=== PATIENT | male | born 1940 | race Caucasian/White ===

== ENCOUNTER 2016-07-21 13:36 | Inpatient (IN) | payer MEDICARE, OTHER ==
[2016-07-21] MEDS ORDERED: Acetaminophen 325 MG Tab PO PRN (13:54)
[2016-07-21] MEDS ORDERED: Bisacodyl 5 MG Tab PO PRN (13:54)
[2016-07-21] MEDS ORDERED: Promethazine 12.5 MG in Sodium Chloride 0.9% 50 ML IV PRN (13:54)
[2016-07-21] MEDS ORDERED: Ondansetron 4 MG/2 ML SDV IV PRN (13:54)
[2016-07-21] MEDS ORDERED: HYDROmorphone 0.5 MG/0.5 ML Syringe IVPUSH PRN (13:54)
[2016-07-21] MEDS ORDERED: Albuterol/Ipratropium 3.0-0.5 MG/3 ML Neb Soln NEB PRN (13:54)
[2016-07-21] MEDS ORDERED: Polyethylene Glycol 3350 Powder 17 GM Packet PO PRN (13:54)
--- NOTE | 2016-07-21 13:54 | PCM.HP ---
H&P History of Present Illness - General Date of Service: 07/21/16 Source of Information: Patient, Old records, Provider, RN notes reviewed History Limitations: Reports: No limitations - History of Present Illness Initial Comments - Free Text/Narative: This is a 75 yo elderly white male with past medical hx/o Asthma, HTN, PVD and HLD who initially presented to his PCP with complaints of abdominal discomfort associated with anorexia, increased gas, belching and nausea and was found to be hyponatremic as low as 125. He denies any fever or chills. No generalized aches or pains. No sinus congestion, sore throat, headaches or ear pain. He has chronic cough due to Asthma. His initial lab form the clinic shows slightly elevated WBC 11.7 The rest of his CBC labs were unremarkable. His chemistry shows BS 82, BUN 14, Cr 0.72, Na 125, Cl 90, K 4.5, Co2 26, Ca 8.7, CRP 11.4 and Amylase 54. Patient was referred to me for medical management of hyponatremia. He is full code neck pain Pain Score (Numeric/FACES): 5 - Related Data Allergies/Adverse Reactions: Allergies Allergy/AdvReac Type Severity Reaction Status Date / Time No Known Allergies Allergy Verified 07/21/16 15:48 Home Medications: Home Meds Alendronate [Fosamax] 1 tab PO WEEKLY 06/06/16 [History] Cholecalciferol (Vitamin D3) [Vitamin D3] 2,000 unit PO DAILY 06/06/16 [History] Ezetimibe [Zetia] 1 tab PO DAILY 06/06/16 [History] Fluticasone/Salmeterol [Advair 500-50 Diskus] 2 puff IH DAILY 06/06/16 [History] Glucosamine/Chondro He A [Cosamin DS] 2 tab PO DAILY 06/06/16 [History] Multivitamin [Multivitamins] 1 each PO DAILY 06/06/16 [History] Rosuvastatin [Crestor] 5 mg PO DAILY 06/06/16 [History] Theophylline [Carlito-24] 200 mg PO DAILY 06/06/16 [History] Acetylcysteine [Nac] 600 mg PO BID 07/21/16 [History] Albuterol Sulfate [Ventolin Hfa] 18 gm IH DAILY 07/21/16 [History] Glutamine [l-Glutamine] 1 dose PO TID 07/21/16 [History] Magnesium 250 mg PO DAILY 07/21/16 [History] Ultra Meal Advance Protein Supplement 2 dose PO BID 07/21/16 [History] Past Medical History Cardiovascular History: Reports: High cholesterol, Hypertension, Pulmonary hypertension, PVD, SOB on exertion Other Cardiovascular History: ASCVD Respiratory History: Reports: COPD, Pneumonia, recurrent Other Respiratory History: pt does not wear his CPAP as prescibed Genitourinary History: Reports: BPH Musculoskeletal History: Reports: Arthritis, Back pain, chronic, Osteoarthritis Psychiatric History: Reports: Addiction, Other (see below) Other Psychiatric History: nighty ETOH drinks - Infectious Disease History Infectious Disease History: Reports: Chicken pox, Measles - Past Surgical History Cardiovascular Surgical History: Reports: Vascular surgery Other Cardiovascular Surgeries/Procedures: states that the pt has been having to sleep in the chair recently Musculoskeletal Surgical History: Reports: Other (see below) Other Musculoskeletal Surgeries/Procedures:: pt 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 Denies: fever, chills, fatigue HEENT: Reports: no symptoms Pulmonary: Reports: shortness of breath (baseline), cough (baseline) Cardiovascular: Denies: chest pain, palpitations, dyspnea on exertion Gastrointestinal: Reports: Abdominal pain, Anorexia, Decreased appetite, Flatus , Nausea. Denies: Bloody stool, Constipation, Diarrhea, Melena, Vomiting Genitourinary: Reports: no symptoms Musculoskeletal: Reports: no symptoms Skin: Denies: bruising, pruritis, rash, erythema Psychiatric: Denies: depression, anxiety Neurological: Denies: confusion, seizure, syncope, difficulty walking, weakness Hematologic/Lymphatic: Reports: easy bleeding, easy bruising Immunologic: Reports: no symptoms Exam - Exam Exam: See Below - Vital Signs Weight: 65 kg - Exam Quality Assessment: No: supplemental oxygen General: alert, oriented, cooperative, mild distress HEENT: Conjunctiva clear, EACs clear, EOMI, Hearing intact, Mucosa moist & pink , Nares patent, Normal nasal septum, Posterior pharynx clear, Pupils equal, Pupils reactive Neck: supple, trachea midline, 2+ carotid pulse wo bruit, full range of motion Lungs: Normal respiratory effort, Decreased breath sounds Cardiovascular: regular rate, regular rhythm Abdomen: normal bowel sounds, soft, organomegaly. No: peritoneal signs, distention, guarding, rigidity, rebound, tenderness (Male) Exam: Deferred Rectal (Males) Exam: Deferred Back Exam: normal inspection, decreased range of motion Extremities: normal inspection, normal pulses. No: clubbing, calf tenderness, edema Peripheral Pulses: 2+: dorsalis pedis (L), dorsalis pedis (R) Skin: warm, dry, intact, ecchymosis Neuro Extensive - Mental Status: oriented x3, normal cognition, memory intact Neuro Extensive - Motor, Sensory, Reflexes: CN II-XII intact, normal gait Psychiatric: alert, normal affect, normal mood *Q Meaningful Use (ADM) - VTE *Q VTE Criteria *Q: - Stroke *Q Stroke Criteria *Q: - AMI *Q AMI Criteria *Q: Problem List Initiated/Reviewed/Updated: Yes Assessment/Plan Comment:: Assessment/Plan: Moderate Hyponatremia - Na 125, new to him - Patient takes herbal supplements, which could be affecting his level - No issues with hydration - Not on SSRIs or Diuretics - Possible dehydration with reduced appetite and anorexia - IV 1L NS and salt tablets Nausea w/o Vomiting - PRN Medications - He is taking supplements specially OTC acetylcysteine which can cause nausea - IV Hydration S/p Abdominal Discomfort - Associated with increased gas and belching - Possible drug side effects - He is taking narcotics for pain along with other OTC medications Chronic: Chronic Asthma HTN PVD HLD Plan: Direct Admit to Med-surg Routine AM Labs Pulse Ox for O2 monitoring Resume Home Meds Follow-up CXR PT/OT consult SW/CM for d/c planning Additional orders as above Code status: full
--- NOTE | 2016-07-21 14:33 | CR ---
Chest: 2 views of the chest were obtained. Comparison: Previous chest x-ray 07/10/16. Increased density on both sides of the chest compatible with healing rib fractures. Lungs are clear with no acute infiltrates. Previous lumbar spine surgery is noted. Scoliosis is present within the spine. Heart size is normal. Mild tortuosity of the thoracic aorta is seen. Impression: 1. Findings as noted above. Nothing acute is appreciated on 2 view chest x-ray. Diagnostic code #2
[2016-07-21] MEDS: Sodium Chloride 0.9% 1,000 ML IV SCH (16:00)
[2016-07-21] MEDS ORDERED: Potassium Chloride/Sodium Chloride Tab PO STA (16:56)
[2016-07-21] MEDS: Acetaminophen/HYDROcodone 325-5 MG Tab PO PRN ×2 (17:09→21:08)
[2016-07-21] MEDS ORDERED: Calcium Carbonate 500 MG Tab.Chew PO PRN (18:21)
[2016-07-21] MEDS ORDERED: Simethicone 80 MG Tab.Chew PO PRN (18:22)
[2016-07-21] MEDS ORDERED: ALENDRONATE PO SCH (19:00)
[2016-07-21] MEDS ORDERED: Temazepam 15 MG Cap PO PRN (21:00)
[2016-07-21] MEDS ORDERED: Potassium Chloride/Sodium Chloride Tab PO SCH (21:00)
[2016-07-21] MEDS: Potassium Chloride/Sodium Chloride Tab PO SCH (21:08)
[2016-07-22] MEDS: Sodium Chloride 0.9% 1,000 ML IV SCH (00:52)
[2016-07-22] MEDS: Pantoprazole 40 MG Tab.CR PO SCH ×2 (06:57→16:11)
--- NOTE | 2016-07-22 08:14 | PCM.PN ---
- General Info Date of Service: 07/22/16 Admission Dx/Problem (Free Text): Hyponatremia Subjective Update: Follow Up Functional Status: Reports: pain controlled, tolerating diet, ambulating, urinating. Denies: new symptoms - Review of Systems General: Denies: fever, weakness, fatigue, malaise, chills HEENT: Denies: contact lenses Pulmonary: Reports: shortness of breath, cough, other (baseline) Cardiovascular: Denies: chest pain, palpitations, dyspnea on exertion, edema Gastrointestinal: Denies: Abdominal pain, Constipation, Decreased appetite, Diarrhea, Nausea, Vomiting Genitourinary: Reports: no symptoms Musculoskeletal: Reports: no symptoms Skin: Reports: bruising. Denies: rash Neurological: Denies: confusion, dizziness, seizure, difficulty walking, weakness, gait disturbance Psychiatric: Denies: depression, anxiety, hallucinations Systems Review Comment:: No overnight or acute issues. He is doing relatively well. His sodium is now at 134. No seizures reported. Patient has been ambulating down the becker w/o respiratory complaints. - Patient Data Vitals - most recent: Last Vital Signs Temp 36.6 C 07/22/16 08:00 Pulse 80 07/22/16 08:00 Resp 16 07/22/16 08:00 BP 100/66 07/22/16 08:00 Pulse Ox 94 L 07/22/16 08:00 Weight - most recent: 63.684 kg I&O - last 24 hours: Intake & Output 07/21/16 07/22/16 07/22/16 22:59 06:59 14:59 Intake Total 2108 Output Total 1000 Balance 1108 Lab Results last 24 hrs: Laboratory Results - last 24 hr 07/21/16 07/22/16 07/22/16 Range/Units 17:15 05:15 05:15 WBC 6.52 (4.23-9.07) K/mm3 RBC 4.71 (4.63-6.08) M/mm3 Hgb 14.4 (13.7-17.5) gm/L Hct 41.4 (40.1-51.0) % MCV 87.9 (79.0-92.2) fl MCH 30.6 (25.7-32.2) pg MCHC 34.8 (32.2-35.5) g/dl RDW Std Deviation 40.9 (35.1-43.9) fL Plt Count 234 (163-337) K/mm3 MPV 9.7 (9.4-12.3) fl Neut % (Auto) 52.0 (34.0-67.9) % Lymph % (Auto) 27.3 (21.8-53.1) % [place] % (Auto) 11.3 (5.3-12.2) % Eos % (Auto) 7.2 H (0.8-7.0) Baso % (Auto) 0.5 (0.1-1.2) % Neut # 3.39 (1.78-5.38) K/mm3 Lymph # 1.78 (1.32-3.57) K/mm3 [place] # 0.74 (0.30-0.82) K/mm3 Eos # 0.47 (0.04-0.54) K/mm3 Baso # 0.03 (0.01-0.08) K/mm3 Sodium 134 L (136-145) mEq/L Potassium 4.2 (3.5-5.1) mEq/L Chloride 100 (98-107) mEq/L Carbon Dioxide 26 (21-32) mEq/L Anion Gap 12.2 (5-15) BUN 9 (7-18) mg/dL Creatinine 0.8 (0.7-1.3) mg/dL Est Cr Clr Drug Dosing 71.87 mL/min Estimated GFR (MDRD) > 60 (>60) mL/min BUN/Creatinine Ratio 11.3 L (14-18) Glucose 81 (74-106) mg/dL Calcium 8.3 L (8.5-10.1) mg/dL Magnesium 2.1 (1.8-2.4) mg/dl Urine Color Yellow (Yellow) Urine Appearance Clear (Clear) Urine pH 6.0 (5.0-8.0) Ur Specific [place] 1.025 (1.005-1.030) Urine Protein Negative (Negative) Urine Glucose (UA) Negative (Negative) Urine Ketones 2+ H (Negative) Urine Occult Blood Negative (Negative) Urine Nitrite Negative (Negative) Urine Bilirubin Negative (Negative) Urine Urobilinogen 0.2 (0.2-1.0) Ur Leukocyte Esterase Negative (Negative) Urine RBC Not seen (0-5) /hpf Urine WBC Not seen (0-5) /hpf Ur Epithelial Cells 0-5 (0-5) /hpf Urine Bacteria Few (FEW) /hpf Urine Mucus Moderate H (FEW) /hpf Med Orders - Current: Current Medications Acetaminophen (Tylenol) 650 mg PO Q4H PRN PRN Reason: Pain (Mild 1-3)/fever Acetaminophen/Hydrocodone Bitart (Henderson 325-5 Mg) 2 tab PO Q4H PRN PRN Reason: Pain (moderate 4-6) Last Admin: 07/21/16 21:08 Dose: 2 tab Albuterol (Proventil Hfa) 0 gm INH DAILY [facility] Albuterol/Ipratropium (Duoneb 3.0-0.5 Mg/3 Ml) 3 ml NEB Q4H PRN PRN Reason: Shortness Of Breath/wheezing Bisacodyl (Dulcolax) 5 mg PO DAILY PRN PRN Reason: Constipation Calcium Carbonate/Glycine (Tums) 1,000 mg PO Q2HR PRN PRN Reason: Indigestion Cholecalciferol (Vitamin D3) 2,000 units PO DAILY [facility] Ezetimibe (Zetia) 10 mg PO DAILY [facility] Enoxaparin Sodium (Lovenox) 40 mg SUBCUT DAILY [facility] Hydromorphone HCl (Dilaudid) 0.25 mg IVPUSH Q2H PRN PRN Reason: Pain (severe 7-10) Promethazine HCl 12.5 mg/ (Sodium Chloride) 50.5 mls @ 100 mls/hr IV Q6H PRN PRN Reason: Nausea/Vomiting Sodium Chloride (Normal Saline) 1,000 mls @ 125 mls/hr IV ASDIRECTED [facility] Last Admin: 07/22/16 00:52 Dose: 125 mls/hr Magnesium Oxide (Magnesium Oxide) 400 mg PO DAILY [facility] Magnesium Sulfate (Pharmacy To Dose - Magnesium Replacement) 0 dose .XX ASDIRECTED PRN PRN Reason: RX TO MONITOR MAG LEVEL Multivitamins (Thera) 1 each PO DAILY [facility] Non-Formulary Medication (Alendronate) 1 tab PO WEEKLY [facility] Non-Formulary Medication (Ultra Meal Advance Protein Supplement) 2 dose PO BID [facility] Ondansetron HCl (Zofran) 4 mg IV Q6H PRN PRN Reason: Nausea/Vomiting Oral Electrolytes (Thermotabs) 2 each PO TID [facility] Last Admin: 07/21/16 21:08 Dose: 2 each Pantoprazole Sodium (Protonix) 40 mg PO BIDAC ARNIE Last Admin: 07/22/16 06:57 Dose: 40 mg Polyethylene Glycol (Miralax) 17 gm PO DAILY PRN PRN Reason: Constipation Potassium Chloride (Pharmacy To Dose - Potassium Replacement) 0 dose .XX ASDIRECTED PRN PRN Reason: RX TO MONITOR K LEVELS Rosuvastatin Calcium (Crestor) 5 mg PO DAILY [facility] Fluticasone/Salmeterol (Advair Diskus 500-50) 0 puff INH DAILY [facility] Senna/Docusate Sodium (Senna Plus) 1 tab PO BID PRN PRN Reason: Constipation Simethicone (Simethicone) 80 mg PO Q6H PRN PRN Reason: Gas Temazepam (Restoril) 15 mg PO BEDTIME PRN PRN Reason: Sleep Theophylline (Theophylline Anhydrous) 200 mg PO DAILY ARNIE Discontinued Medications Oral Electrolytes (Thermotabs) 2 each PO TID ARNIE Oral Electrolytes (Thermotabs) 2 each PO STAT STA Stop: 07/21/16 16:57 Last Admin: 07/21/16 17:12 Dose: 2 each - Exam General: alert, oriented, cooperative, no acute distress HEENT: Pupils equal, Pupils reactive, EOMI, Mucous membr. moist/pink Neck: supple, trachea midline, no JVD, no thyromegaly Lungs: Normal respiratory effort, Decreased breath sounds Cardiovascular: regular rate, regular rhythm Abdomen: bowel sounds present, soft, no tenderness, no distension (Male) Exam: Deferred Back Exam: normal inspection, decreased range of motion Extremities: no edema, normal pulses, no tenderness/swelling, no clubbing, no cyanosis, no calf tenderness Peripheral Pulses: 2+: dorsalis pedis (L), dorsalis pedis (R) Skin: dry, intact, ecchymosis Neurological: no new focal deficit Psy/Mental Status: alert, normal affect, normal mood - Problem List Review Problem List Initiated/Reviewed/Updated: Yes - My Orders Last 24 Hours: My Active Orders 07/21/16 13:54 Patient Status [ADT] Routine Height and Weight [RC] 04 Up With Assistance [RC] ASDIRECTED Up ad [place] [RC] ASDIRECTED VTE/DVT Education [RC] PER UNIT ROUTINE Vital Signs [RC] Q4HR Acetaminophen [Tylenol] 650 mg PO Q4H PRN Acetaminophen/HYDROcodone [Henderson 325-5 MG] 2 tab PO Q4H PRN Albuterol/Ipratropium [DuoNeb 3.0-0.5 MG/3 ML] 3 ml NEB Q4H PRN Bisacodyl [Dulcolax] 5 mg PO DAILY PRN Docusate Sodium/Sennosides [Senna Plus] 1 tab PO BID PRN HYDROmorphone [Dilaudid] 0.25 mg IVPUSH Q2H PRN Ondansetron [Zofran] 4 mg IV Q6H PRN Polyethylene Glycol 3350 [MiraLAX] 17 gm PO DAILY PRN Promethazine [Phenergan] 12.5 mg Sodium Chloride 0.9% [Normal Saline] 50 ml IV Q6H Resuscitation Status Routine 07/21/16 13:55 Intake and Output [RC] 04,16 Pulse Oximetry [RC] CONTINUOUS 07/21/16 13:56 RT Aerosol Therapy [RC] ASDIRECTED 07/21/16 13:57 Consult to Case Management [CONS] Routine Consult to [place] Supervisor [CONS] Routine OT Evaluation and Treatment [CONS] Routine PT Evaluation and Treatment [CONS] Routine Respiratory Care Assess and Treatment [CONS] Routine 07/21/16 13:58 Oxygen Therapy [RC] PRN VTE/DVT Education [RC] DAILY 07/21/16 14:00 Magnesium Rep Pharmacy to Dose [Pharmacy to Dose - Magnesium Replacement] 0 dose .XX ASDIRECTED PRN Potassium Rep Pharmacy to Dose [Pharmacy to Dose - Potassium Replacement] 0 dose .XX ASDIRECTED PRN Sodium Chloride 0.9% [Normal Saline] 1,000 ml IV ASDIRECTED 07/21/16 17:15 CULTURE URINE [RM] Stat 07/21/16 18:21 Calcium Carbonate [Tums] 1,000 mg PO Q2HR PRN 07/21/16 18:22 Simethicone 80 mg PO Q6H PRN 07/21/16 19:00 Alendronate 1 tab PO WEEKLY 07/21/16 21:00 Potassium Chloride/NaCl [Thermotabs] 2 each PO TID Temazepam [Restoril] 15 mg PO BEDTIME PRN Ultra Meal Advance Protein Supplement 2 dose PO BID 07/21/16 Lunch Regular Diet [DIET] 07/22/16 05:15 CBC WITH AUTO DIFF [HEME] AM 07/22/16 06:00 Pantoprazole [Protonix] 40 mg PO BIDAC 07/22/16 09:00 Albuterol [Proventil HFA] 0 gm INH DAILY Cholecalciferol (Vitamin D3) [Vitamin D3] 2,000 units PO DAILY Enoxaparin [Lovenox] 40 mg SUBCUT DAILY Ezetimibe [Zetia] 10 mg PO DAILY Fluticasone/Salmeterol [Advair Diskus 500-50] 0 puff INH DAILY Magnesium Oxide 400 mg PO DAILY Multivitamins,Therapeutic [Thera] 1 each PO DAILY Rosuvastatin [Crestor] 5 mg PO DAILY Theophylline [Theophylline Anhydrous] 200 mg PO DAILY 07/23/16 05:11 BASIC METABOLIC PANEL,BMP [CHEM] AM CBC WITH AUTO DIFF [HEME] AM MAGNESIUM [CHEM] AM 07/24/16 05:11 BASIC METABOLIC PANEL,BMP [CHEM] AM CBC WITH AUTO DIFF [HEME] AM MAGNESIUM [CHEM] AM 07/25/16 05:11 BASIC METABOLIC PANEL,BMP [CHEM] AM CBC WITH AUTO DIFF [HEME] AM MAGNESIUM [CHEM] AM 07/26/16 05:11 BASIC METABOLIC PANEL,BMP [CHEM] AM CBC WITH AUTO DIFF [HEME] AM MAGNESIUM [CHEM] AM 07/27/16 05:11 BASIC METABOLIC PANEL,BMP [CHEM] AM CBC WITH AUTO DIFF [HEME] AM MAGNESIUM [CHEM] AM - Plan Plan:: Assessment/Plan: Moderate Hyponatremia - Na 125, new to him ---> 134 near low end of normal - Patient takes herbal supplements, which could be affecting his level - No issues with hydration - Not on SSRIs or Diuretics - Possible dehydration with reduced appetite and anorexia - Will d/c IVF and continue salt tablets Resolved: S/p Nausea w/o Vomiting - PRN Medications - He is taking supplements specially OTC acetylcysteine which can cause nausea - IV Hydration S/p Abdominal Discomfort - Associated with increased gas and belching - Possible drug side effects - He is taking narcotics for pain along with other OTC medications Chronic: Chronic Asthma HTN PVD HLD Plan: He is clinically stable Continue current treatment Routine AM Labs Possible d/c in am Additional orders as above Code status: full
[2016-07-22] MEDS ORDERED: Theophylline 200 MG Tab.ER PO SCH (09:00)
[2016-07-22] MEDS ORDERED: Fluticasone/Salmeterol 500-50 MCG Inhalation Powder 14/Diskus INH SCH (09:00)
[2016-07-22] MEDS: Albuterol 6.7 GM Inhaler INH SCH (09:24)
[2016-07-22] MEDS: Ezetimibe 10 MG Tab PO SCH (09:59)
[2016-07-22] MEDS: Potassium Chloride/Sodium Chloride Tab PO SCH ×3 (09:59→20:48)
[2016-07-22] MEDS: Cholecalciferol (Vitamin D3) 1,000 Unit Tab PO SCH (09:59)
[2016-07-22] MEDS: Magnesium Oxide 400 MG Tab PO SCH (09:59)
[2016-07-22] MEDS: Multivitamins,Therapeutic Tab PO SCH (09:59)
[2016-07-22] MEDS: Rosuvastatin 10 MG Tab PO SCH (09:59)
[2016-07-22] MEDS: Enoxaparin 40 MG/0.4 ML Syringe SUBCUT SCH (10:00)
[2016-07-22] MEDS: Theophylline 200 MG Tab.ER PO SCH ×2 (10:06→21:00)
[2016-07-22] MEDS: Fluticasone/Salmeterol 500-50 MCG Inhalation Powder 14/Diskus INH SCH (21:00)
[2016-07-22] MEDS: PROTEIN SUPPLEMENT PO SCH (21:00)
[2016-07-23] MEDS: Pantoprazole 40 MG Tab.CR PO SCH (05:36)
--- NOTE | 2016-07-23 07:25 | PCM.DCSUM1 ---
Discharge Summary - Hospital Course Brief History: This is a 75 yo elderly white male with past medical hx/o Asthma , HTN, PVD and HLD who initially presented to his PCP with complaints of abdominal discomfort associated with anorexia, increased gas, belching and nausea and was found to be hyponatremic as low as 125. - Discharge Data Discharge Date: 07/23/16 Discharge Disposition: Home, Self-Care 01 Condition: Good - Discharge Diagnosis/Problem(s) (1) Hyponatremia SNOMED Code(s): 13754847 ICD Code: E87.1 - HYPO-OSMOLALITY AND HYPONATREMIA Status: Acute Current Visit: No - Patient Summary/Data Operative Procedure(s) Performed: None Complications: None Consults: Consultations 07/21/16 13:57 Consult to Case Management [CONS] Routine Consult to Customer Business Manager [CONS] Routine OT Evaluation and Treatment [CONS] Routine PT Evaluation and Treatment [CONS] Routine Respiratory Care Assess and Treatment [CONS] Routine Hospital Course: Patient was primarily admitted for treatment of symptomatic hyponatremia. He carries no previous hx/o in the past. He was not on SSRIs or any psychotropic medications as well as diuretics. However he just started taking OTC supplements and herbs which we felt maybe the cause of his hyponatremia ( euvolemic hyponatremic). Pharmacy reviewed all his home meds but could not find any possible cause. His sodium was 125 on admission and is now 134 after infusion of normal saline and intake of po salt tablet. His hospital course was very uncomplicated. The rest of his chronic medical illness remained stable during this admission. Patient is now ready to be released. He will go home with salt tablets to take for 3 days. He was advised to call see his PCP if his symptoms persist or get worse. Patient was further advised to discussed any herbs or supplements with his PCP prior to taking it. Patient expressed understanding and in agreement with the plans as discussed above. - Patient Instructions Diet: Usual Diet as Tolerated Activity: As Tolerated Driving: May Drive Today Showering/Bathing: May Shower Notify Provider of: Fever, Increased Pain, Nausea and/or Vomiting Other/Special Instructions: - Please take medications as directed. - Discussed all OTC supplements/herbs with your doctor before you it. - Call your doctor if your symptom persists or gets worse - Discharge Plan Prescriptions/Med Rec: Non-Formulary Medication [NF Drug] 0 each ORAL.INH TID #9 each Home Medications: Home Meds Alendronate [Fosamax] 1 tab PO WEEKLY 06/06/16 [History] Cholecalciferol (Vitamin D3) [Vitamin D3] 2,000 unit PO DAILY 06/06/16 [History] Ezetimibe [Zetia] 1 tab PO DAILY 06/06/16 [History] Fluticasone/Salmeterol [Advair 500-50 Diskus] 2 puff IH BEDTIME 06/06/16 [ History] Glucosamine/Chondro He A [Cosamin DS] 2 tab PO DAILY 06/06/16 [History] Multivitamin [Multivitamins] 1 each PO DAILY 06/06/16 [History] Rosuvastatin [Crestor] 5 mg PO DAILY 06/06/16 [History] Theophylline [Carlito-24] 100 mg PO BID 06/06/16 [History] Acetylcysteine [Nac] 600 mg PO BID 07/21/16 [History] Albuterol Sulfate [Ventolin Hfa] 18 gm IH DAILY 07/21/16 [History] Glutamine [l-Glutamine] 1 dose PO TID 07/21/16 [History] Magnesium 250 mg PO DAILY 07/21/16 [History] Ultra Meal Advance Protein Supplement 2 dose PO BID 07/21/16 [History] Non-Formulary Medication [NF Drug] 0 each ORAL.INH TID #9 each 07/23/16 [Rx] - Discharge Summary/Plan Comment DC Time >30 min.: No Discharge Summary/Plan Comment: Discharge to Home - General Info Date of Service: 07/23/16 Admission Dx/Problem (Free Text: Hyponatremia Subjective Update: Follow Up Functional Status: Reports: pain controlled, tolerating diet, ambulating, urinating. Denies: new symptoms - Review of Systems General: Denies: fever, weakness, fatigue, malaise, chills HEENT: Reports: no symptoms Pulmonary: Denies: shortness of breath Cardiovascular: Denies: chest pain Gastrointestinal: Denies: Abdominal pain, Constipation, Decreased appetite, Diarrhea, Nausea, Vomiting Genitourinary: Reports: no symptoms Musculoskeletal: Reports: no symptoms Skin: Reports: bruising Neurological: Denies: confusion, dizziness, seizure, difficulty walking, weakness, gait disturbance Psychiatric: Denies: depression, anxiety, hallucinations Systems Review Comment: No overnight or acute issues. He still remains relatively stable. His sodium level stayed at 134. He has no new complaints. - Patient Data Vitals - Most Recent: Last Vital Signs Temp 36.9 C 07/23/16 04:00 Pulse 62 07/23/16 04:00 Resp 20 07/23/16 04:00 BP 139/72 07/23/16 04:00 Pulse Ox 95 07/23/16 04:00 Weight - Most Recent: 62.868 kg I&O - Last 24 hours: Intake & Output 07/22/16 07/23/16 07/23/16 22:59 06:59 14:59 Intake Total 1690 200 Output Total 1375 550 Balance 315 -350 Lab Results - Last 24 hrs: Laboratory Results - last 24 hr 07/22/16 07/23/16 07/23/16 Range/Units 05:15 05:20 05:20 WBC 6.52 8.93 (4.23-9.07) K/mm3 RBC 4.71 4.81 (4.63-6.08) M/mm3 Hgb 14.4 14.8 (13.7-17.5) gm/L Hct 41.4 42.9 (40.1-51.0) % MCV 87.9 89.2 (79.0-92.2) fl MCH 30.6 30.8 (25.7-32.2) pg MCHC 34.8 34.5 (32.2-35.5) g/dl RDW Std Deviation 40.9 42.5 (35.1-43.9) fL Plt Count 234 292 (163-337) K/mm3 MPV 9.7 9.6 (9.4-12.3) fl Neut % (Auto) 52.0 56.1 (34.0-67.9) % Lymph % (Auto) 27.3 27.8 (21.8-53.1) % Meade % (Auto) 11.3 9.6 (5.3-12.2) % Eos % (Auto) 7.2 H 5.3 (0.8-7.0) Baso % (Auto) 0.5 0.4 (0.1-1.2) % Neut # 3.39 5.01 (1.78-5.38) K/mm3 Lymph # 1.78 2.48 (1.32-3.57) K/mm3 Meade # 0.74 0.86 H (0.30-0.82) K/mm3 Eos # 0.47 0.47 (0.04-0.54) K/mm3 Baso # 0.03 0.04 (0.01-0.08) K/mm3 Manual Slide Review Abnormal smear Sodium 134 L (136-145) mEq/L Potassium 4.2 (3.5-5.1) mEq/L Chloride 99 (98-107) mEq/L Carbon Dioxide 25 (21-32) mEq/L Anion Gap 14.2 (5-15) BUN 8 (7-18) mg/dL Creatinine 0.7 (0.7-1.3) mg/dL Est Cr Clr Drug Dosing 81.08 mL/min Estimated GFR (MDRD) > 60 (>60) mL/min BUN/Creatinine Ratio 11.4 L (14-18) Glucose 86 (74-106) mg/dL Calcium 8.5 (8.5-10.1) mg/dL Magnesium 2.0 (1.8-2.4) mg/dl ANASTACIO Results - Last 24 hrs: Microbiology 07/21/16 17:15 Urine Culture - Preliminary Urine, Clean Catch NO GROWTH AFTER 1 DAY Med Orders - Current: Current Medications Acetaminophen (Tylenol) 650 mg PO Q4H PRN PRN Reason: Pain (Mild 1-3)/fever Acetaminophen/Hydrocodone Bitart (Orient 325-5 Mg) 2 tab PO Q4H PRN PRN Reason: Pain (moderate 4-6) Last Admin: 07/21/16 21:08 Dose: 2 tab Albuterol (Proventil Hfa) 0 gm INH DAILY [facility] Last Admin: 07/22/16 09:24 Dose: 1 puff Albuterol/Ipratropium (Duoneb 3.0-0.5 Mg/3 Ml) 3 ml NEB Q4H PRN PRN Reason: Shortness Of Breath/wheezing Bisacodyl (Dulcolax) 5 mg PO DAILY PRN PRN Reason: Constipation Calcium Carbonate/Glycine (Tums) 1,000 mg PO Q2HR PRN PRN Reason: Indigestion Cholecalciferol (Vitamin D3) 2,000 units PO DAILY [facility] Last Admin: 07/22/16 09:59 Dose: 2,000 units Ezetimibe (Zetia) 10 mg PO DAILY [facility] Last Admin: 07/22/16 09:59 Dose: 10 mg Enoxaparin Sodium (Lovenox) 40 mg SUBCUT DAILY [facility] Last Admin: 07/22/16 10:00 Dose: 40 mg Hydromorphone HCl (Dilaudid) 0.25 mg IVPUSH Q2H PRN PRN Reason: Pain (severe 7-10) Promethazine HCl 12.5 mg/ (Sodium Chloride) 50.5 mls @ 100 mls/hr IV Q6H PRN PRN Reason: Nausea/Vomiting Magnesium Oxide (Magnesium Oxide) 400 mg PO DAILY [facility] Last Admin: 07/22/16 09:59 Dose: 400 mg Magnesium Sulfate (Pharmacy To Dose - Magnesium Replacement) 0 dose .XX ASDIRECTED PRN PRN Reason: RX TO MONITOR MAG LEVEL Multivitamins (Thera) 1 each PO DAILY [facility] Last Admin: 07/22/16 09:59 Dose: 1 each Ondansetron HCl (Zofran) 4 mg IV Q6H PRN PRN Reason: Nausea/Vomiting Oral Electrolytes (Thermotabs) 2 each PO TID [facility] Last Admin: 07/22/16 20:48 Dose: 2 each Pantoprazole Sodium (Protonix) 40 mg PO BIDAC [facility] Last Admin: 07/23/16 05:36 Dose: 40 mg Ultra Meal Advance (Protein Supplement) 0 each PO BID [facility] Last Admin: 07/22/16 21:00 Dose: Not Given Polyethylene Glycol (Miralax) 17 gm PO DAILY PRN PRN Reason: Constipation Potassium Chloride (Pharmacy To Dose - Potassium Replacement) 0 dose .XX ASDIRECTED PRN PRN Reason: RX TO MONITOR K LEVELS Rosuvastatin Calcium (Crestor) 5 mg PO DAILY [facility] Last Admin: 07/22/16 09:59 Dose: 5 mg Fluticasone/Salmeterol (Advair Diskus 500-50) 1 puff INH DAILY [facility] Last Admin: 07/22/16 21:00 Dose: 1 puff Senna/Docusate Sodium (Senna Plus) 1 tab PO BID PRN PRN Reason: Constipation Simethicone (Simethicone) 80 mg PO Q6H PRN PRN Reason: Gas Temazepam (Restoril) 15 mg PO BEDTIME PRN PRN Reason: Sleep Theophylline (Theophylline Anhydrous) 100 mg PO BID [facility] Last Admin: 07/22/16 21:00 Dose: Not Given Discontinued Medications Sodium Chloride (Normal Saline) 1,000 mls @ 125 mls/hr IV ASDIRECTED [facility] Last Admin: 07/22/16 00:52 Dose: 125 mls/hr Non-Formulary Medication (Alendronate) 1 tab PO WEEKLY ARNIE Oral Electrolytes (Thermotabs) 2 each PO TID ARNIE Oral Electrolytes (Thermotabs) 2 each PO STAT STA Stop: 07/21/16 16:57 Last Admin: 07/21/16 17:12 Dose: 2 each Fluticasone/Salmeterol (Advair Diskus 500-50) 0 puff INH DAILY [facility] Last Admin: 07/22/16 09:23 Dose: Not Given Theophylline (Theophylline Anhydrous) 200 mg PO DAILY [facility] Last Admin: 07/22/16 11:38 Dose: Not Given - Exam General: Reports: alert, oriented, cooperative HEENT: Reports: Pupils equal, Pupils reactive, EOMI, Mucous membr. moist/pink Neck: Reports: supple, trachea midline, no JVD, no thyromegaly Lungs: Reports: Normal respiratory effort, Decreased breath sounds, Rhonchi ( mild ronchi) Cardiovascular: Reports: regular rate, regular rhythm Abdomen: Reports: bowel sounds present, soft, no tenderness, no distension (Male) Exam: Deferred Rectal (Males) Exam: Deferred Back Exam: Reports: normal inspection, decreased range of motion Extremities: Reports: no edema, normal pulses, no tenderness/swelling, no clubbing, no cyanosis, no calf tenderness Skin: Reports: warm, dry, intact, ecchymosis Neurological: Reports: no new focal deficit Psy/Mental Status: Reports: alert, normal affect, normal mood *Q Meaningful Use (DIS) - VTE *Q VTE Criteria *Q: - Stroke *Q Stroke Criteria *Q: - AMI *Q AMI Criteria *Q:
[2016-07-23 08:16] VITALS: BP 134/72
[2016-07-23] MEDS: Magnesium Oxide 400 MG Tab PO SCH (08:17)
[2016-07-23] MEDS: Multivitamins,Therapeutic Tab PO SCH (08:17)
[2016-07-23] MEDS: Potassium Chloride/Sodium Chloride Tab PO SCH (08:18)
[2016-07-23] MEDS: Cholecalciferol (Vitamin D3) 1,000 Unit Tab PO SCH (08:18)
[2016-07-23] MEDS: Ezetimibe 10 MG Tab PO SCH (08:18)
[2016-07-23] MEDS: Enoxaparin 40 MG/0.4 ML Syringe SUBCUT SCH (08:19)
[2016-07-23] MEDS: Theophylline 200 MG Tab.ER PO SCH (08:19)
[2016-07-23] MEDS: Rosuvastatin 10 MG Tab PO SCH (08:29)
[2016-07-23] MEDS: Albuterol 6.7 GM Inhaler INH SCH (08:47)
[2016-07-23] MEDS: PROTEIN SUPPLEMENT PO SCH (08:57)
[2016-07-23] MEDS ORDERED: Diphtheria,Pertussis(Acell),Tetanus Vaccine 0.5 ML SDV inactive IM ONE (10:56)
[2016-07-23] MEDS ORDERED: Pneumococcal 13-Valent Conjugate Vaccine 0.5 ML Syringe IM ONE (10:56)
[2016-07-23] MEDS: Fluticasone/Salmeterol 500-50 MCG Inhalation Powder 14/Diskus INH SCH (11:09)
== END 2016-07-23 08:52 | disposition home or self-care (01) | DRG 641 ==
LOC: JD.IVTHER 13:36 → JD.ICU 13:44
PROVIDERS: ADMIT Internal Medicine; ATTEND Internal Medicine
DX: E87.1 Hypo-osmolality and hyponatremia (principal); S22.39XA Fracture of one rib, unspecified side, initial encounter for closed fracture; E86.0 Dehydration; R10.9 Unspecified abdominal pain; R11.2 Nausea with vomiting, unspecified; J44.9 Chronic obstructive pulmonary disease, unspecified; J45.909 Unspecified asthma, uncomplicated; W19.XXXA Unspecified fall, initial encounter; I25.10 Atherosclerotic heart disease of native coronary artery without angina pectoris; I10 Essential (primary) hypertension; I73.9 Peripheral vascular disease, unspecified; E78.5 Hyperlipidemia, unspecified; E78.00 Pure hypercholesterolemia, unspecified; N40.0 Benign prostatic hyperplasia without lower urinary tract symptoms; M19.90 Unspecified osteoarthritis, unspecified site; Z87.01 Personal history of pneumonia (recurrent); F10.10 Alcohol abuse, uncomplicated; Z79.899 Other long term (current) drug therapy
CPT/HCPCS: 36415; 71020; 71020-26; 80048; 81001; 83735; 85025; 87086; 94640; 94664; 94760; 94762; 97110-GP; 97161-GP; 97165-GO; 99222; 99238; A9270-GY; J1650; J7040

== ENCOUNTER 2016-11-07 12:03 | Emergency (ER) | payer MEDICARE, OTHER ==
[2016-11-07] MEDS ORDERED: Sodium Chloride 0.9% 10 ML Syringe FLUSH PRN ×3 (12:38→13:40)
--- NOTE | 2016-11-07 12:47 | EDM.PDOC ---
ED HPI GENERAL MEDICAL PROBLEM - General Chief Complaint: Syncope Stated Complaint: BLACKED OUT Time Seen by Provider: 11/07/16 12:30 Source of Information: Reports: Patient, Family ( spouse and son. ) History Limitations: Reports: No Limitations - History of Present Illness INITIAL COMMENTS - FREE TEXT/NARRATIVE: 76-year-old male presents the ED by ambulance. provides the history as the patient has no recollection of what has happened to him. Apparently he was sitting on the couch and she recognized him to be staring off into space. Just when he was looking at it got no response. He continued to stare off into space and not able to answer her verbally. He was verbally unresponsive for between 30 and 40 seconds. Then he speech was very slurred when she asked him his name and he was acting postictal for about next 10-15 minutes. She never noticed any tonic-clonic movements of his extremities. Patient did not lose control of his bowel or bladder or bite his tongue. He's had a headache the last few days but at present he doesn't have a headache. Patient has never had a seizure in the past. He has a history of chronic low sodium level which might be an issue. Onset: Today Onset Date: 11/07/16 Onset Time: 11:15 Duration: Minutes: Location: Reports: Generalized (Unresponsiveness staring off into space with no obvious tonic-clonic movements. Lasted 30 seconds or so. 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 (see below) (None.) Neck Pain Score (Numeric/FACES): 9 - Related Data Allergies Allergy/AdvReac Type Severity Reaction Status Date / Time No Known Allergies Allergy Verified 07/21/16 15:48 Home Meds: Home Meds Alendronate [Fosamax] 70 mg PO IRVIN 06/06/16 [History] Cholecalciferol (Vitamin D3) [Vitamin D3] 2,000 unit PO DAILY 06/06/16 [History] Fluticasone/Salmeterol [Advair 500-50 Diskus] 2 puff IH BEDTIME 06/06/16 [ History] Glucosamine/Chondro Irvin A [Cosamin DS] 2 tab PO DAILY 06/06/16 [History] Multivitamin [Multivitamins] 1 each PO DAILY 06/06/16 [History] Rosuvastatin [Crestor] 5 mg PO DAILY 06/06/16 [History] Theophylline [Carlito-24] 400 mg PO DAILY 06/06/16 [History] Acetylcysteine [Nac] 600 mg PO DAILY 07/21/16 [History] Albuterol Sulfate [Ventolin Hfa] 18 gm IH DAILY 07/21/16 [History] Glutamine [l-Glutamine] 2 tsp PO DAILY 07/21/16 [History] Magnesium 250 mg PO DAILY 07/21/16 [History] Ultra Meal Advance Protein Supplement 2 dose PO BID 07/21/16 [History] Cephalexin 500 mg PO TID 11/07/16 [History] Ibuprofen 600 mg PO QID PRN 11/07/16 [History] Protein Supplement [Procel] 1 pkt PO DAILY 11/07/16 [History] Past Medical History Cardiovascular History: Reports: High Cholesterol, Hypertension, Pulmonary Hypertension, PVD, SOB on Exertion Other Cardiovascular History: ASCVD Respiratory History: Reports: COPD, Pneumonia, Recurrent Other Respiratory History: pt does not wear his CPAP as prescibed Genitourinary History: Reports: BPH Musculoskeletal History: Reports: Arthritis, Back Pain, Chronic, Osteoarthritis Psychiatric History: Reports: Addiction, Other (See Below) Other Psychiatric History: nighty ETOH drinks Dermatologic History: Reports: Other (See Below) Other Dermatologic History: very thin skin secondary to theophylline - Infectious Disease History Infectious Disease History: Reports: Chicken Pox, Measles - Past Surgical History Cardiovascular Surgical History: Reports: Vascular Surgery Musculoskeletal Surgical History: Reports: Other (See Below) Social & Family History - Family History Family Medical History: Noncontributory - Tobacco Use Smoking Status *Q: Never Smoker Years of Tobacco use: 20 Packs/Tins Daily: 0.5 Used Tobacco, but Quit: Yes Month Tobacco Last Used: unknown - Caffeine Use Caffeine Use: Reports: None - Alcohol Use Days Per Week of Alcohol Use: 7 Number of Drinks Per Day: 1 Total Drinks Per Week: 7 - Recreational Drug Use Recreational Drug Use: No - Living Situation & Occupation Living situation: Reports: Occupation: Retired ED ROS GENERAL - Review of Systems Review Of Systems: See Below Constitutional: Reports: Malaise, Weakness, Fatigue, Decreased Appetite, Weight Loss, Other (Eats and drinks quite poorly. Taking salt pills periodically to boost his sodium levels.). Denies: Fever, Chills HEENT: Reports: No Symptoms Respiratory: Reports: Shortness of Breath, Wheezing (Chronically due to severe COPD.), Cough. Denies: Pleuritic Chest Pain ( Intermittently), Sputum ( Nonproductive), Hemoptysis, Other Cardiovascular: Reports: Dyspnea on Exertion, Lightheadedness. Denies: No Symptoms, Chest Pain, Blood Pressure Problem, Claudication, Edema (Chronically) , Orthopnea, Palpitations Endocrine: Reports: Fatigue GI/Abdominal: Reports: No Symptoms : Reports: Frequency Musculoskeletal: Reports: Neck Pain (Has several bad discs apparently in his back and lower back.), Back Pain Skin: Reports: Bruising (Is is very easily. Skin is very fragile) Neurological: Reports: Confusion (Transient confusion after suspect seizure today.), Headache, Seizure (By history today), Difficulty Walking (Chronically due to to severe pain right foot.). Denies: Numbness (The last few days but not at present), Paresthesia, Pre-Existing Deficit, Syncope, Tingling, Tremors, Trouble Speaking Psychiatric: Reports: No Symptoms Hematologic/Lymphatic: Reports: No Symptoms Immunologic: Reports: No Symptoms - Physical Exam Exam: See Below Exam Limited By: No Limitations General Appearance: Alert, WD/WN, No Apparent Distress, Other (He was confused initially but his mentation improved fairly promptly after about 5 minutes in the exam room.) Eye Exam: Bilateral Eye: Normal Inspection, PERRL Throat/Mouth: Normal Inspection, Normal Lips, Normal Teeth, Normal Oropharynx. No: Evidence of Tongue Biting Head Exam: Atraumatic, Normocephalic Neck: Normal Inspection, Limited Range of Motion, Tender Lateral (Bilaterally.) . No: Full Range of Motion, Carotid Bruit, Lymphadenopathy (L), Lymphadenopathy (R) Respiratory/Chest: No Accessory Muscle Use, Respiratory Distress (Mild tachypnea at rest. O2 sats only 89% on room air.), Decreased Breath Sounds ( Page breath sounds in the lower 50% of lung akins.), Rhonchi, Wheezing (That her bronchitis and expiratory wheezes.). No: Lungs Clear, Normal Breath Sounds Cardiovascular: Regular Rate, Rhythm, No Edema, No Gallop, No Murmur, No Rub. No: Normal Peripheral Pulses GI/Abdominal: Normal Bowel Sounds, Soft, Non-Tender, No Organomegaly (Male) Exam: No Hernia Neuro Exam (Abbreviated): Alert, Oriented, CN II-XII Intact, Normal Cognition, No Motor/Sensory Deficits. No: Normal Gait, Normal Reflexes DTR: 0: Achilles (R), Achilles (L), 1+: Bicep (R), Bicep (L), Patella (R), Patella (L) Back Exam: Normal Inspection, Decreased Range of Motion, Vertebral Tenderness ( Lumbar spine.) Extremities: Other (A. 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 There is now concern for osteomyelitis in the midfoot and he is for triple phase bone scan tomorrow.) Skin Exam: Warm, Dry, Intact, Normal Color, No Rash EKG INTERPRETATION EKG Date: 11/07/16 Time: 12:15 Rhythm: NSR Rate (beats/min): 80 (Frequent PACs) [place]: normal P-wave: present QRS: normal ST-T: other (Decreased voltage limb leads) QT: normal Course - Vital Signs Last Recorded V/S: Last Vital Signs Temp 36.9 C 11/07/16 12:05 Pulse 84 11/07/16 12:05 Resp 22 H 11/07/16 12:05 BP 117/74 11/07/16 12:05 Pulse Ox 89 L 11/07/16 12:05 - Orders/Labs/Meds Orders: Active Orders 24 hr Category Date Time Status EKG Documentation Completion [RC] STAT Care 11/07/16 12:38 Active Peripheral IV Care [RC] . DIRECTED Care 11/07/16 12:39 Active Sodium Chloride 0.9% [Normal Saline] 1,000 ml Med 11/07/16 13:00 Active IV ASDIRECTED Sodium Chloride 0.9% [Saline Flush] Med 11/07/16 12:38 Active 10 ml FLUSH ASDIRECTED PRN Sodium Chloride 0.9% [Saline Flush] Med 11/07/16 13:29 Active 10 ml FLUSH ONETIME PRN Sodium Chloride 0.9% [Saline Flush] Med 11/07/16 13:40 Active 10 ml FLUSH ONETIME PRN Peripheral IV Insertion Adult [OM.PC] Stat Oth 11/07/16 12:39 Ordered Medication Orders Sodium Chloride (Normal Saline) 1,000 mls @ 100 mls/hr IV ASDIRECTED ARNIE Last Admin: 11/07/16 12:55 Dose: 100 mls/hr Sodium Chloride (Saline Flush) 10 ml FLUSH ASDIRECTED PRN PRN Reason: Keep Vein Open Last Admin: 11/07/16 12:15 Dose: 10 ml Sodium Chloride (Saline Flush) 10 ml FLUSH ONETIME PRN PRN Reason: IV FLUSH Sodium Chloride (Saline Flush) 10 ml FLUSH ONETIME PRN PRN Reason: IV FLUSH Last Admin: 11/07/16 13:55 Dose: 10 ml Labs: Laboratory Tests 11/07/16 11/07/16 11/07/16 Range/Units 12:25 12:25 12:25 WBC 11.90 H (4.23-9.07) K/mm3 RBC 4.93 (4.63-6.08) M/mm3 Hgb 14.8 (13.7-17.5) gm/L Hct 42.4 (40.1-51.0) % MCV 86.0 (79.0-92.2) fl MCH 30.0 (25.7-32.2) pg MCHC 34.9 (32.2-35.5) g/dl RDW Std Deviation 41.3 (35.1-43.9) fL Plt Count 240 (163-337) K/mm3 MPV 9.4 (9.4-12.3) fl Neutrophils % (Manual) 60 (40-60) % Band Neutrophils % 0 (0-10) % Lymphocytes % (Manual) 22 (20-40) % Atypical Lymphs % 0 % Monocytes % (Manual) 7 (2-10) % Eosinophils % (Manual) 11 H (0.8-7.0) % Basophils % (Manual) 0 L (0.2-1.2) Platelet Estimate Adequate RBC Morph Comment Normal PT 9.8 (8.0-13.0) SECONDS INR 0.90 Sodium 127 L (136-145) mEq/L Potassium 3.9 (3.5-5.1) mEq/L Chloride 93 L (98-107) mEq/L Carbon Dioxide 22 (21-32) mEq/L Anion Gap 15.9 H (5-15) BUN 12 (7-18) mg/dL Creatinine 0.9 (0.7-1.3) mg/dL Est Cr Clr Drug Dosing 64.96 mL/min Estimated GFR (MDRD) > 60 (>60) mL/min BUN/Creatinine Ratio 13.3 L (14-18) Glucose 83 (83-115) mg/dL Serum Osmolality (280-300) mosm/kg Calcium 8.6 (8.5-10.1) mg/dL Magnesium 2.0 (1.8-2.4) mg/dl Total Bilirubin 1.3 H (0.2-1.0) mg/dL AST 30 (15-37) U/L ALT 27 (16-63) U/L Alkaline Phosphatase 94 (46-116) U/L CK-MB (CK-2) 1.8 (0-3.6) ng/ml Troponin I < 0.017 (0.00-0.056) ng/mL C-Reactive Protein 5.0 H* (<1.0) mg/dL Total Protein 6.6 (6.4-8.2) g/dl Albumin 3.1 L (3.4-5.0) g/dl Globulin 3.5 gm/dL Albumin/Globulin Ratio 0.9 L (1-2) 05/23/17 Range/Units 12:25 WBC (4.23-9.07) K/mm3 RBC (4.63-6.08) M/mm3 Hgb (13.7-17.5) gm/L Hct (40.1-51.0) % MCV (79.0-92.2) fl MCH (25.7-32.2) pg MCHC (32.2-35.5) g/dl RDW Std Deviation (35.1-43.9) fL Plt Count (163-337) K/mm3 MPV (9.4-12.3) fl Neutrophils % (Manual) (40-60) % Band Neutrophils % (0-10) % Lymphocytes % (Manual) (20-40) % Atypical Lymphs % % Monocytes % (Manual) (2-10) % Eosinophils % (Manual) (0.8-7.0) % Basophils % (Manual) (0.2-1.2) Platelet Estimate RBC Morph Comment PT (8.0-13.0) SECONDS INR Sodium (136-145) mEq/L Potassium (3.5-5.1) mEq/L Chloride (98-107) mEq/L Carbon Dioxide (21-32) mEq/L Anion Gap (5-15) BUN (7-18) mg/dL Creatinine (0.7-1.3) mg/dL Est Cr Clr Drug Dosing mL/min Estimated GFR (MDRD) (>60) mL/min BUN/Creatinine Ratio (14-18) Glucose (83-115) mg/dL Serum Osmolality 263 L (280-300) mosm/kg Calcium (8.5-10.1) mg/dL Magnesium (1.8-2.4) mg/dl Total Bilirubin (0.2-1.0) mg/dL AST (15-37) U/L ALT (16-63) U/L Alkaline Phosphatase (46-116) U/L CK-MB (CK-2) (0-3.6) ng/ml Troponin I (0.00-0.056) ng/mL C-Reactive Protein (<1.0) mg/dL Total Protein (6.4-8.2) g/dl Albumin (3.4-5.0) g/dl Globulin gm/dL Albumin/Globulin Ratio (1-2) Meds: Medications Generic Name Dose Route Start Last Admin Trade Name Freq PRN Reason Stop Dose Admin Sodium Chloride 1,000 mls @ 100 mls/hr 11/07/16 13:00 11/07/16 12:55 Normal Saline IV 100 mls/hr ASDIRECTED ARNIE Administration Sodium Chloride 10 ml 11/07/16 12:38 11/07/16 12:15 Saline Flush FLUSH 10 ml ASDIRECTED PRN Administration Keep Vein Open Sodium Chloride 10 ml 11/07/16 13:29 Saline Flush FLUSH ONETIME PRN IV FLUSH Sodium Chloride 10 ml 11/07/16 13:40 11/07/16 13:55 Saline Flush FLUSH 10 ml ONETIME PRN Administration IV FLUSH Discontinued Medications Generic Name Dose Route Start Last Admin Trade Name Freq PRN Reason Stop Dose Admin Hydromorphone HCl 0.5 mg 11/07/16 13:22 11/07/16 13:37 Dilaudid IVPUSH 11/07/16 13:23 0.5 mg ONETIME ONE Administration Iopamidol 100 ml 11/07/16 13:29 Isovue-300 (61%) IVPUSH 11/07/16 13:30 ONETIME ONE Iopamidol 80 ml 11/07/16 13:40 11/07/16 13:55 Isovue-300 (61%) IVPUSH 11/07/16 13:41 80 ml ONETIME ONE Administration Ondansetron HCl 4 mg 11/07/16 13:22 11/07/16 13:34 Zofran IVPUSH 11/07/16 13:23 4 mg ONETIME ONE Administration - Radiology Interpretation Free Text/Narrative:: 76-year-old male presents the ED after having an episode at home where he was staring off into space and was nonverbal with his . Did not respond to physical stimulation . This activity lasted roughly 30 seconds and then was noted to be quite dysarthric and postictal for about 10-15 minutes. His cognitive function has returned to normal now and he is showing no signs of a neurological deficit. He has a history of chronic hyponatremia which may or may not be playing a role in this event. No new medications have been introduced. He does not drink alcohol. Plan CT of the head will be done to make sure that he did not have a cerebral bleed. Routine labs to be collected. I will start him on normal saline at 125 mils an hour. He is scheduled to have CT of the chest today at [facility] at 1:00. I believe this was with contrast because of an abnormality patient CT 3 months ago. They're concerned that he may have occult lung cancer that is secreting a hormone causing his hyponatremia. I will wait for serum creatinine come back before pursuing CT of his chest. CT of the brain has been completed and does not reveal any intracranial bleeding. Age- appropriate changes appreciated with small vessel ischemic changes in the basal ganglia bilaterally.CT did reveal increased mucosal thickening of the ethmoid and sphenoid sinuses suggesting chronic sinusitis. - Re-Assessments/Exams Free Text/Narrative Re-Assessment/Exam: 11/07/16 13:23 she is complaining of increased neck pain. We'll give him Dilaudid 0.5 mg IV with Zofran 4 mg IV. 11/07/16 13:24 did receive labs done yesterday at [facility] by Dr. Vasquez.. He is creatinine was 0.85 at that time in the kidneys kidneys are functioning fairly well. His GFR was greater than 60. His serum sodium level was low at 127 with potassium of 4.2. CRP was markedly elevated at 26.9. This is worrisome for an infective process in his right foot. 11/07/16 13:41 laboratory reveals a total white count of 11.90 with 60% neutrophils and no bands. Hemoglobin is 14.8 hematocrit is 42.4. Of note there is 11% eosinophils noted. PT is 9.8 INR 0.90. Sodium is low at 127. Potassium 3.9 chloride 93 bicarbonate 22. Anion gap is 15.9 BUN is 12 creatinine 0.9 bilirubin 1.3 CRP 5.0. Serum osmolality is pending. 11/07/16 14:33 CT of the chest has been carried out with contrast. Cardiac silhouette appears normal. Visualized portions of the aorta appear normal. He has mild atherosclerotic disease. He has an infiltrate in the base of the left lung with a small pleural effusion. Appears to to be a pneumonic consolidation. Basal right lung also has an infiltrate which appears to be mostly vascular and scar tissue. 11/07/16 : Discussed the findings with the patient and family. He does not wish to stay in the hospital. He will therefore be discharged to home to use salt pills 2 tablets --2 tablets 3 times daily for the next 5 days and minimize his water intake and supplement most of juices and/or Gatorade Powerade. Serum sodium level checked in the clinic in one week's time. Departure - Departure Time of Disposition: 15:20 Disposition: Home, Self-Care 01 Condition: fair Clinical Impression: Hyponatremia with decreased serum osmolality Complex partial epileptic seizure Qualifiers: Epilepsy type: partial symptomatic Intractability: not intractable Status epilepticus: without status epilepticus Qualified Code(s): G40.209 - Localization-related (focal) (partial) symptomatic epilepsy and epileptic syndromes with complex partial seizures, not intractable, without status epilepticus - Discharge Information Referrals: Kareem Cowan MD [Primary Care Provider] - Forms: ED Department Discharge Additional Instructions: evaluation in the emergency room today in regards to seizure that occurred in her home this morning. You are unresponsive to verbal and physical stimuli from your for at least 30 seconds or longer. Postictal phase lasted a good 10- 15 minutes with impaired cognition and speech pattern. The cause of this appears to be low sodium in your blood or hyponatremia which has been a long- term problem for you. You were scheduled for CT of your lungs today and it was carried out in the emergency department. It is essentially unchanged from previous CTs showing scar tissue in both bases without any other abnormalities being noted other than findings of chronic obstructive pulmonary disease. Serum sodium today was 127 similar to what it was in the clinic yesterday. Serum osmolality was 263 and it should be 295. Treatment is to start pills 3 times daily to bring your sodium level back up.suggestion this for at least 5 days. Fluid restriction to less than 400 mils of water per day would also help keep your sodium level up. It is important to try and drink as much juices or Gatorade Powerade as possible and not drink pure water as this continues to dilute her sodium level in your blood.you should have repeat labs done in a week 's time to see where your sodium value is. - My Orders Last 24 Hours: My Active Orders 11/07/16 12:38 EKG Documentation Completion [RC] STAT Sodium Chloride 0.9% [Saline Flush] 10 ml FLUSH ASDIRECTED PRN 11/07/16 12:39 Peripheral IV Care [RC] . DIRECTED Peripheral IV Insertion Adult [OM.PC] Stat 11/07/16 13:00 Sodium Chloride 0.9% [Normal Saline] 1,000 ml IV ASDIRECTED 11/07/16 13:29 Sodium Chloride 0.9% [Saline Flush] 10 ml FLUSH ONETIME PRN 11/07/16 13:40 Sodium Chloride 0.9% [Saline Flush] 10 ml FLUSH ONETIME PRN - Assessment/Plan Last 24 Hours: My Active Orders 11/07/16 12:38 EKG Documentation Completion [RC] STAT Sodium Chloride 0.9% [Saline Flush] 10 ml FLUSH ASDIRECTED PRN 11/07/16 12:39 Peripheral IV Care [RC] . DIRECTED Peripheral IV Insertion Adult [OM.PC] Stat 11/07/16 13:00 Sodium Chloride 0.9% [Normal Saline] 1,000 ml IV ASDIRECTED 11/07/16 13:29 Sodium Chloride 0.9% [Saline Flush] 10 ml FLUSH ONETIME PRN 11/07/16 13:40 Sodium Chloride 0.9% [Saline Flush] 10 ml FLUSH ONETIME PRN
[2016-11-07] MEDS ORDERED: Sodium Chloride 0.9% 1,000 ML IV SCH (13:00)
--- NOTE | 2016-11-07 13:21 | CT ---
Head CT Technique: Multiple axial sections through the brain were obtained. Intravenous contrast was not utilized. Comparison: Previous head CT study of 04/03/16. Findings: Ventricles along with basal cisterns and sulci over the convexities are mildly prominent. Minimal diminished density is noted within the periventricular white matter and within the basal ganglia compatible with small vessel ischemic demyelination change. No other abnormal parenchymal densities are seen. No evidence of intracranial hemorrhage. No midline shift or mass effect is seen. Atherosclerotic change is noted within both vertebral vessels and within the carotid siphon. Bone window settings were reviewed which shows moderate to severe mucosal thickening within the ethmoid and sphenoid sinuses. Mucosal thickening has increased in prominence from previous exam. No acute calvarial abnormality is seen. Impression: 1. Increasing mucosal thickening within the ethmoid and sphenoid sinus from prior exam. Findings may represent worsening chronic sinusitis. 2. Mild senescent change as noted above. Nothing acute is appreciated on noncontrast head CT exam. Diagnostic code #3
[2016-11-07] MEDS ORDERED: HYDROmorphone 0.5 MG/0.5 ML Syringe IVPUSH ONE (13:22)
[2016-11-07] MEDS ORDERED: Ondansetron 4 MG/2 ML SDV IVPUSH ONE (13:22)
[2016-11-07] MEDS ORDERED: Iopamidol 612 MG/ML 100 ML Bottle IVPUSH ONE ×2 (13:29→13:40)
--- NOTE | 2016-11-07 14:55 | CT ---
CT chest Technique: Multiple axial sections through the chest were obtained. Intravenous contrast was utilized. Comparison: Previous chest CT of 06/07/12. Findings: Small portion of the visualized upper abdominal structures are within normal limits. No pericardial thickening is seen. Coronary artery calcification is noted. Slightly ectatic ascending aorta is seen. Atherosclerotic calcification noted within the thoracic aorta. No axillary adenopathy is seen. Parenchymal density seen within both lung bases believed to represent scarring which appears fairly stable from previous exam. Lungs otherwise are clear. No nodule or mass is seen. Multiple healed bilateral rib fractures are noted. Mild degenerative change is noted within the spine. Previous lumbar spine surgery is partially seen. Impression: 1. Stable findings as noted above. When compared to prior chest CT, no significant change is appreciated. Diagnostic code #3
[2016-11-07 15:49] VITALS: BP 122/73
== END 2016-11-07 15:30 | disposition home or self-care (01) ==
LOC: JD.ED 12:03
DX: G40.209 Localization-related (focal) (partial) symptomatic epilepsy and epileptic syndromes with complex partial seizures, not intractable, without status epilepticus (principal); E87.1 Hypo-osmolality and hyponatremia; I27.2 Other secondary pulmonary hypertension; E78.00 Pure hypercholesterolemia, unspecified; J44.9 Chronic obstructive pulmonary disease, unspecified; M19.90 Unspecified osteoarthritis, unspecified site; Z87.01 Personal history of pneumonia (recurrent); Z79.899 Other long term (current) drug therapy; R06.02 Shortness of breath
CPT/HCPCS: 36415; 70450; 71260; 80053; 82553; 83735; 83930; 84484; 85025; 85610; 86140; 93005; 96361; 96374; 96375; 99285; J1170; J2405; J7040; J7050; Q9967

== ENCOUNTER 2016-11-10 10:28 | Inpatient (IN) | payer MEDICARE, OTHER ==
[2016-11-10] MEDS ORDERED: Lactated Ringers 1,000 ML IV ONE (10:57)
--- NOTE | 2016-11-10 11:00 | EDM.PDOC ---
ED HPI GENERAL MEDICAL PROBLEM - General Chief Complaint: Fever Stated Complaint: ONGOING FEVER Time Seen by Provider: 11/10/16 10:45 - History of Present Illness INITIAL COMMENTS - FREE TEXT/NARRATIVE: 76-year-old male presents emergency room with persistent fever and not feeling well. For the past 4-5 days patient has not been feeling very well he's had a frequent cough at times bringing up yellow to brown sputum. His appetite has been diminished he has not been drinking or eating very much he did eat a piece of quiche last night but admits to not drinking enough fluids. Often times she coughs to the point of triggering vomiting. He's been exposed to people with pneumonia and apparently he has some sort of weakened immune system secondary to a long history of asthma and theophylline use. The patient was seen here on Sunday thought to have had a seizure perhaps secondary to his hyponatremia. The patient has had no more activity such as this however he is short of breath weak tired has no strength in his extremities. Patient had a bone scan done on Sunday. As was done with his fairly recent distal great toe amputation on the right side and T7 some healing difficulties with it yesterday he had a prescription phoned in for clindamycin that he has not started yet because of stomach upset and is said to take with food. - Related Data Allergies Allergy/AdvReac Type Severity Reaction Status Date / Time No Known Allergies Allergy Verified 11/10/16 10:46 Home Meds: Home Meds Alendronate [Fosamax] 70 mg PO HE 06/06/16 [History] Cholecalciferol (Vitamin D3) [Vitamin D3] 2,000 unit PO DAILY 06/06/16 [History] Fluticasone/Salmeterol [Advair 500-50 Diskus] 2 puff IH BEDTIME 06/06/16 [ History] Glucosamine/Chondro He A [Cosamin DS] 2 tab PO DAILY 06/06/16 [History] Multivitamin [Multivitamins] 1 each PO DAILY 06/06/16 [History] Rosuvastatin [Crestor] 5 mg PO DAILY 06/06/16 [History] Theophylline [Carlito-24] 400 mg PO DAILY 06/06/16 [History] Acetylcysteine [Nac] 600 mg PO DAILY 07/21/16 [History] Albuterol Sulfate [Ventolin Hfa] 18 gm IH DAILY 07/21/16 [History] Glutamine [l-Glutamine] 2 tsp PO DAILY 07/21/16 [History] Magnesium 250 mg PO DAILY 07/21/16 [History] Ultra Meal Advance Protein Supplement 2 dose PO BID 07/21/16 [History] Ibuprofen 600 mg PO QID PRN 11/07/16 [History] Protein Supplement [Procel] 1 pkt PO DAILY 11/07/16 [History] Past Medical History HEENT History: Reports: Impaired Vision Other HEENT History: wears reading glasses Cardiovascular History: Reports: High Cholesterol, Hypertension, Pulmonary Hypertension, PVD, SOB on Exertion Other Cardiovascular History: ASCVD Respiratory History: Reports: COPD, Pneumonia, Recurrent Other Respiratory History: pt does not wear his CPAP as prescibed Genitourinary History: Reports: BPH Musculoskeletal History: Reports: Arthritis, Back Pain, Chronic, Osteoarthritis Neurological History: Reports: Head Trauma Psychiatric History: Reports: Addiction, Other (See Below) Other Psychiatric History: nighty ETOH drinks Immunologic History: Reports: Immunosuppression, Other (See Below) Other Immunologic History: from [facility]. Dermatologic History: Reports: Other (See Below) Other Dermatologic History: very thin skin secondary to theophylline - Infectious Disease History Infectious Disease History: Reports: Chicken Pox, Measles - Past Surgical History HEENT Surgical History: Reports: Tonsillectomy Cardiovascular Surgical History: Reports: Vascular Surgery Musculoskeletal Surgical History: Reports: Other (See Below) Social & Family History - Family History Family Medical History: Noncontributory - Tobacco Use Smoking Status *Q: Never Smoker Years of Tobacco use: 20 Packs/Tins Daily: 0.5 Used Tobacco, but Quit: Yes Month Tobacco Last Used: unknown - Caffeine Use Caffeine Use: Reports: None - Alcohol Use Days Per Week of Alcohol Use: 7 Number of Drinks Per Day: 1 Total Drinks Per Week: 7 - Recreational Drug Use Recreational Drug Use: No - Living Situation & Occupation Living situation: Reports: Occupation: Retired ED ROS GENERAL - Review of Systems Review Of Systems: See Below Constitutional: Reports: Fever, Chills, Weakness, Fatigue HEENT: Reports: No Symptoms Respiratory: Reports: Cough, Sputum. Denies: Wheezing, Pleuritic Chest Pain Cardiovascular: Reports: Lightheadedness. Denies: Chest Pain, Claudication, Palpitations GI/Abdominal: Reports: Nausea, Vomiting. Denies: Abdominal Pain, Constipation, Diarrhea : Reports: No Symptoms Musculoskeletal: Reports: Other (Patient has chronic neck pain this is no worse than normal) Neurological: Reports: Headache (Patient has a headache but this is getting better over time). Denies: Confusion, Syncope, Gait Disturbance Psychiatric: Reports: No Symptoms ED EXAM, SEPSIS - Physical Exam Exam: See Below Exam Limited By: No Limitations General Appearance: Alert, Other (Upon arrival to the emergency room he was tachycardic and had some mild low blood pressure he also had some mild tachypnea ) Eye Exam: Bilateral Eye: Normal Inspection Ears: Normal External Exam, Normal Canal, Hearing Grossly Normal, Normal TMs Nose: Normal Inspection, Normal Mucosa, No Blood Throat/Mouth: Normal Inspection, Normal Lips, Normal Teeth, Normal Gums, Normal Oropharynx, Normal Voice, No Airway Compromise, Other (Semi-dry mucosa no erythema or exudate noted in the posterior pharynx however he has some brownish sputum top of this palate) Head: Atraumatic, Normocephalic Neck: Normal Inspection, Supple, Non-Tender, Full Range of Motion. No: Lymphadenopathy (L), Lymphadenopathy (R) Respiratory/Chest: No Respiratory Distress, Lungs Clear, Normal Breath Sounds Cardiovascular: Regular Rate, Rhythm, No Edema, No Murmur GI/Abdominal: Normal Bowel Sounds, Soft, Non-Tender Back: Normal Inspection. No: CVA Tenderness (L), CVA Tenderness (R) Neurological: Other (Patient has a partially healed distal amputation of his right great toe. He has some surrounding erythema to this area mild amount of warmth no erythema or warmth noted around the ankles) Psychiatric: Normal Affect, Normal Mood Course - Vital Signs Last Recorded V/S: Last Vital Signs Temp 38.8 C H 11/10/16 10:38 Pulse 99 11/10/16 10:38 Resp 24 H 11/10/16 10:38 BP 105/65 11/10/16 10:38 Pulse Ox 89 L 11/10/16 10:38 - Orders/Labs/Meds Orders: Active Orders 24 hr Category Date Time Status EKG Documentation Completion [RC] STAT Care 11/10/16 10:53 Active Tibia Fibula Lt [CR] Stat Exams 11/10/16 11:57 Taken Tibia Fibula Rt [CR] Stat Exams 11/10/16 11:57 Taken CULTURE BLOOD [BC] Stat Lab 11/10/16 11:12 Received CULTURE BLOOD [BC] Stat Lab 11/10/16 11:21 Received CULTURE URINE [RM] Stat Lab 11/10/16 13:04 Ordered Piperacillin/Tazobactam [Zosyn] 4.5 gm Med 11/10/16 13:38 Active Sodium Chloride 0.9% [Normal Saline] 100 ml IV ONETIME Sodium Chloride 0.9% [Normal Saline] 1,000 ml Med 11/10/16 12:45 Active IV ASDIRECTED Blood Culture x2 Reflex Set [OM.PC] Stat Oth 11/10/16 10:54 Ordered Medication Orders Sodium Chloride (Normal Saline) 1,000 mls @ 150 mls/hr IV ASDIRECTED ARNIE Last Admin: 11/10/16 12:43 Dose: 150 mls/hr Piperacillin Sod/Tazobactam (Sod 4.5 gm/ Sodium Chloride) 100 mls @ 200 mls/hr IV ONETIME ONE Stop: 11/10/16 14:07 Labs: Laboratory Tests 11/10/16 11/10/16 11/10/16 Range/Units 11:12 11:12 11:12 WBC 11.52 H (4.23-9.07) K/mm3 RBC 4.58 L (4.63-6.08) M/mm3 Hgb 13.6 L (13.7-17.5) gm/L Hct 38.6 L (40.1-51.0) % MCV 84.3 (79.0-92.2) fl MCH 29.7 (25.7-32.2) pg MCHC 35.2 (32.2-35.5) g/dl RDW Std Deviation 38.3 (35.1-43.9) fL Plt Count 260 (163-337) K/mm3 MPV 9.4 (9.4-12.3) fl Neutrophils % (Manual) 57 (40-60) % Band Neutrophils % 1 (0-10) % Lymphocytes % (Manual) 15 L (20-40) % Atypical Lymphs % 0 % Monocytes % (Manual) 10 (2-10) % Eosinophils % (Manual) 17 H (0.8-7.0) % Basophils % (Manual) 0 L (0.2-1.2) Platelet Estimate Adequate RBC Morph Comment Normal PT 10.4 (8.0-13.0) SECONDS INR 0.96 APTT 32 (22-36) SECONDS Sodium 122 L (136-145) mEq/L Potassium 3.6 (3.5-5.1) mEq/L Chloride 90 L (98-107) mEq/L Carbon Dioxide 20 L (21-32) mEq/L Anion Gap 15.6 H (5-15) BUN 10 (7-18) mg/dL Creatinine 0.8 (0.7-1.3) mg/dL Est Cr Clr Drug Dosing TNP Estimated GFR (MDRD) > 60 (>60) mL/min BUN/Creatinine Ratio 12.5 L (14-18) Glucose 94 (83-115) mg/dL Lactic Acid (0.4-2.0) mmol/L Calcium 8.1 L (8.5-10.1) mg/dL Total Bilirubin 1.1 H (0.2-1.0) mg/dL AST 23 (15-37) U/L ALT 21 (16-63) U/L Alkaline Phosphatase 86 (46-116) U/L Total Protein 5.7 L (6.4-8.2) g/dl Albumin 2.4 L (3.4-5.0) g/dl Globulin 3.3 gm/dL Albumin/Globulin Ratio 0.7 L (1-2) Lipase (73-393) U/L Urine Color (Yellow) Urine Appearance (Clear) Urine pH (5.0-8.0) Ur Specific Guffey (1.005-1.030) Urine Protein (Negative) Urine Glucose (UA) (Negative) Urine Ketones (Negative) Urine Occult Blood (Negative) Urine Nitrite (Negative) Urine Bilirubin (Negative) Urine Urobilinogen (0.2-1.0) Ur Leukocyte Esterase (Negative) Urine RBC (0-5) /hpf Urine WBC (0-5) /hpf Ur Epithelial Cells (0-5) /hpf Urine Bacteria (FEW) /hpf Urine Mucus (FEW) /hpf Mycoplasma pneumon IgM (NEGATIVE) 11/10/16 11/10/16 11/10/16 Range/Units 11:12 11:12 11:12 WBC (4.23-9.07) K/mm3 RBC (4.63-6.08) M/mm3 Hgb (13.7-17.5) gm/L Hct (40.1-51.0) % MCV (79.0-92.2) fl MCH (25.7-32.2) pg MCHC (32.2-35.5) g/dl RDW Std Deviation (35.1-43.9) fL Plt Count (163-337) K/mm3 MPV (9.4-12.3) fl Neutrophils % (Manual) (40-60) % Band Neutrophils % (0-10) % Lymphocytes % (Manual) (20-40) % Atypical Lymphs % % Monocytes % (Manual) (2-10) % Eosinophils % (Manual) (0.8-7.0) % Basophils % (Manual) (0.2-1.2) Platelet Estimate RBC Morph Comment PT (8.0-13.0) SECONDS INR APTT (22-36) SECONDS Sodium (136-145) mEq/L Potassium (3.5-5.1) mEq/L Chloride (98-107) mEq/L Carbon Dioxide (21-32) mEq/L Anion Gap (5-15) BUN (7-18) mg/dL Creatinine (0.7-1.3) mg/dL Est Cr Clr Drug Dosing Estimated GFR (MDRD) (>60) mL/min BUN/Creatinine Ratio (14-18) Glucose (83-115) mg/dL Lactic Acid 1.0 (0.4-2.0) mmol/L Calcium (8.5-10.1) mg/dL Total Bilirubin (0.2-1.0) mg/dL AST (15-37) U/L ALT (16-63) U/L Alkaline Phosphatase (46-116) U/L Total Protein (6.4-8.2) g/dl Albumin (3.4-5.0) g/dl Globulin gm/dL Albumin/Globulin Ratio (1-2) Lipase 117 (73-393) U/L Urine Color (Yellow) Urine Appearance (Clear) Urine pH (5.0-8.0) Ur Specific Guffey (1.005-1.030) Urine Protein (Negative) Urine Glucose (UA) (Negative) Urine Ketones (Negative) Urine Occult Blood (Negative) Urine Nitrite (Negative) Urine Bilirubin (Negative) Urine Urobilinogen (0.2-1.0) Ur Leukocyte Esterase (Negative) Urine RBC (0-5) /hpf Urine WBC (0-5) /hpf Ur Epithelial Cells (0-5) /hpf Urine Bacteria (FEW) /hpf Urine Mucus (FEW) /hpf Mycoplasma pneumon IgM Negative (NEGATIVE) 11/10/16 Range/Units 12:35 WBC (4.23-9.07) K/mm3 RBC (4.63-6.08) M/mm3 Hgb (13.7-17.5) gm/L Hct (40.1-51.0) % MCV (79.0-92.2) fl MCH (25.7-32.2) pg MCHC (32.2-35.5) g/dl RDW Std Deviation (35.1-43.9) fL Plt Count (163-337) K/mm3 MPV (9.4-12.3) fl Neutrophils % (Manual) (40-60) % Band Neutrophils % (0-10) % Lymphocytes % (Manual) (20-40) % Atypical Lymphs % % Monocytes % (Manual) (2-10) % Eosinophils % (Manual) (0.8-7.0) % Basophils % (Manual) (0.2-1.2) Platelet Estimate RBC Morph Comment PT (8.0-13.0) SECONDS INR APTT (22-36) SECONDS Sodium (136-145) mEq/L Potassium (3.5-5.1) mEq/L Chloride (98-107) mEq/L Carbon Dioxide (21-32) mEq/L Anion Gap (5-15) BUN (7-18) mg/dL Creatinine (0.7-1.3) mg/dL Est Cr Clr Drug Dosing Estimated GFR (MDRD) (>60) mL/min BUN/Creatinine Ratio (14-18) Glucose (83-115) mg/dL Lactic Acid (0.4-2.0) mmol/L Calcium (8.5-10.1) mg/dL Total Bilirubin (0.2-1.0) mg/dL AST (15-37) U/L ALT (16-63) U/L Alkaline Phosphatase (46-116) U/L Total Protein (6.4-8.2) g/dl Albumin (3.4-5.0) g/dl Globulin gm/dL Albumin/Globulin Ratio (1-2) Lipase (73-393) U/L Urine Color Yellow (Yellow) Urine Appearance Clear (Clear) Urine pH 6.5 (5.0-8.0) Ur Specific Guffey 1.025 (1.005-1.030) Urine Protein 1+ H (Negative) Urine Glucose (UA) Negative (Negative) Urine Ketones 3+ H (Negative) Urine Occult Blood Negative (Negative) Urine Nitrite Negative (Negative) Urine Bilirubin 1+ H (Negative) Urine Urobilinogen 1.0 (0.2-1.0) Ur Leukocyte Esterase Trace H (Negative) Urine RBC 0-5 (0-5) /hpf Urine WBC 5-10 H (0-5) /hpf Ur Epithelial Cells 0-5 (0-5) /hpf Urine Bacteria Rare (FEW) /hpf Urine Mucus Few (FEW) /hpf Mycoplasma pneumon IgM (NEGATIVE) Meds: Medications Generic Name Dose Route Start Last Admin Trade Name Freq PRN Reason Stop Dose Admin Sodium Chloride 1,000 mls @ 150 mls/hr 11/10/16 12:45 11/10/16 12:43 Normal Saline IV 150 mls/hr ASDIRECTED ARNIE Administration Piperacillin Sod/Tazobactam 100 mls @ 200 mls/hr 11/10/16 13:38 Sod 4.5 gm/ Sodium Chloride IV 11/10/16 14:07 ONETIME ONE Discontinued Medications Generic Name Dose Route Start Last Admin Trade Name Freq PRN Reason Stop Dose Admin Lactated Ringer's 1,000 mls @ 999 mls/hr 11/10/16 10:57 11/10/16 11:15 Ringers, Lactated IV 11/10/16 11:57 999 mls/hr .BOLUS ONE Administration Methylprednisolone Sodium Succinate 80 mg 11/10/16 13:32 Solu-Medrol IVPUSH 11/10/16 13:33 ONETIME ONE - Re-Assessments/Exams Free Text/Narrative Re-Assessment/Exam: 11/10/16 12:34 Recent situation is complicated will start on fluids aggressively fluid resuscitate him labs ordered blood cultures ordered urinalysis ordered and we' ll check for mycoplasma LP is considered however we'll hold off his headache is getting better his neck pain is no worse than normal but this is a consideration. 11/10/16 13:42 Patient is excepted for inpatient therapy case discussed with Dr. Fitch to be started on Zosyn and be given a dose of Solu-Medrol with his underlying asthma and reactive airway disease however he is not wheezing he just has a worsening cough he seems to be moving air fairly well. He'll be continued on IV fluids. Departure - Departure Time of Disposition: 13:41 Disposition: Admitted As Inpatient 66 Clinical Impression: Fever, Cellulitis, Bronchitis, Urinary tract infection, Dehydration with hyponatremia - Discharge Information Forms: ED Department Discharge - My Orders Last 24 Hours: My Active Orders 11/10/16 10:53 EKG Documentation Completion [RC] STAT 11/10/16 10:54 Blood Culture x2 Reflex Set [OM.PC] Stat 11/10/16 11:12 CULTURE BLOOD [BC] Stat 11/10/16 11:21 CULTURE BLOOD [BC] Stat 11/10/16 11:57 Tibia Fibula Lt [CR] Stat Tibia Fibula Rt [CR] Stat 11/10/16 12:45 Sodium Chloride 0.9% [Normal Saline] 1,000 ml IV ASDIRECTED 11/10/16 13:04 CULTURE URINE [RM] Stat 11/10/16 13:38 Piperacillin/Tazobactam [Zosyn] 4.5 gm Sodium Chloride 0.9% [Normal Saline] 100 ml IV ONETIME - Assessment/Plan Last 24 Hours: My Active Orders 11/10/16 10:53 EKG Documentation Completion [RC] STAT 11/10/16 10:54 Blood Culture x2 Reflex Set [OM.PC] Stat 11/10/16 11:12 CULTURE BLOOD [BC] Stat 11/10/16 11:21 CULTURE BLOOD [BC] Stat 11/10/16 11:57 Tibia Fibula Lt [CR] Stat Tibia Fibula Rt [CR] Stat 11/10/16 12:45 Sodium Chloride 0.9% [Normal Saline] 1,000 ml IV ASDIRECTED 11/10/16 13:04 CULTURE URINE [RM] Stat 11/10/16 13:38 Piperacillin/Tazobactam [Zosyn] 4.5 gm Sodium Chloride 0.9% [Normal Saline] 100 ml IV ONETIME
--- NOTE | 2016-11-10 11:25 | CR ---
Chest: Frontal view of the chest was obtained. Comparison: Previous chest CT of 11/07/16 and chest x-ray of 07/21/16. Nodular density seen on both sides of the chest compatible with healing rib fractures. Mild atelectasis is seen within the left lung base. Lungs otherwise are clear. Heart size is normal. Mild tortuosity of the thoracic aorta is seen. Bony structures are osteopenic. Impression: 1. Incidental findings. Nothing acute is appreciated. Diagnostic code #2
[2016-11-10] MEDS: Sodium Chloride 0.9% 1,000 ML IV SCH ×2 (12:43→20:12)
[2016-11-10] MEDS ORDERED: methylPREDNISolone Sodium Succinate 125 MG/2 ML SDV IVPUSH ONE (13:32)
[2016-11-10] MEDS ORDERED: Piperacillin/Tazobactam 4.5 GM in Sodium Chloride 0.9% 100 ML IV ONE (13:38)
--- NOTE | 2016-11-10 14:05 | CR ---
Right tibia and fibula: Two views of the right tibia and fibula were obtained. Bony structures are osteoporotic. Plantar spur is noted. Extensive vascular calcification is seen. No discrete fracture or other abnormality is appreciated. Impression: 1. Findings as noted above. Nothing acute is appreciated on two-view right tibia and fibula study. 2. Nothing seen to correlate to areas of increased activity on bone scan study of 11/08/16. Bone scan findings are likely due to subradiographic degenerative change or subradiographic trauma. Diagnostic code #2
--- NOTE | 2016-11-10 14:05 | CR ---
Left tibia and fibula: Two views of the left tibia and fibula were obtained. Plantar spur is seen. Extensive vascular calcifications noted. Medial joint space narrowing is seen within the knee with mild osteophytes off the medial knee. No acute fracture or other bony abnormality is seen. Impression: 1. Findings as described above. Nothing seem to correlate to bone scan findings within the ankles. As mentioned on the opposite side, activity on bone scan study likely is due to subradiographic degenerative change or subradiographic change from previous trauma. Diagnostic code #3
[2016-11-10] MEDS ORDERED: hydrALAZINE 20 MG/ML SDV IVPUSH PRN (16:07)
[2016-11-10] MEDS ORDERED: Azithromycin 250 MG in Sodium Chloride 0.9% 250 ML IV ONE (16:08)
[2016-11-10] MEDS ORDERED: Morphine 2 MG/ML Syringe IVPUSH PRN (16:09)
[2016-11-10] MEDS ORDERED: Bisacodyl 5 MG Tab PO PRN (16:10)
[2016-11-10] MEDS ORDERED: Temazepam 15 MG Cap PO PRN (16:10)
[2016-11-10] MEDS ORDERED: Docusate Sodium 100 MG Cap PO PRN (16:10)
[2016-11-10] MEDS ORDERED: LORazepam 2 MG/ML MDV IV PRN (16:10)
[2016-11-10] MEDS ORDERED: Polyethylene Glycol 3350 Powder 17 GM Packet PO PRN (16:10)
[2016-11-10] MEDS ORDERED: Ondansetron 4 MG/2 ML SDV IV PRN (16:10)
[2016-11-10] MEDS ORDERED: Albuterol/Ipratropium 3.0-0.5 MG/3 ML Neb Soln NEB PRN (16:10)
[2016-11-10] MEDS ORDERED: Promethazine 12.5 MG in Sodium Chloride 0.9% 50 ML IV PRN (16:10)
[2016-11-10] MEDS ORDERED: Dronabinol 2.5 MG Cap PO ONE (16:14)
[2016-11-10] MEDS ORDERED: Pneumococcal 13-Valent Conjugate Vaccine 0.5 ML Syringe IM ONE (18:38)
[2016-11-10] MEDS: Azithromycin 500 MG in Sodium Chloride 0.9% 250 ML IV SCH (18:53)
[2016-11-10] MEDS: Acetaminophen 325 MG Tab PO PRN (18:59)
--- NOTE | 2016-11-10 20:33 | PCM.HP ---
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 Associated to his c/o are productive cough with brown-greenish sputum, decreased oral intake, fatigue and weakness. Patient recently seen in ED and was thought to have had a seizure related to hyponatremia with a sodium level of 121. Patient denies any such episode on this admission. His initial work up in ED shows a CBC remarkable for WBC 11.52, Hgb 13.6, Hct 38.6, and Eosinophils 17%. His chemistry is significant for Na 122, Cl 90, CO2 20, AG 15.6, Ca+ 8.1, Total Bili 1.1, Total Protein 5.7, and Albumin 2.4. UA is not impressive for UTI. His CXR report reads no acute seen. Patient is being admitted for Febrile Illness and Acute Bronchitis. He is CPR only. Generalized Pain Score (Numeric/FACES): 7 - Related Data Allergies/Adverse Reactions: Allergies Allergy/AdvReac Type Severity Reaction Status Date / Time No Known Allergies Allergy Verified 11/10/16 10:46 Home Medications: Home Meds Alendronate [Fosamax] 70 mg PO HE 06/06/16 [History] Cholecalciferol (Vitamin D3) [Vitamin D3] 2,000 unit PO DAILY 06/06/16 [History] Fluticasone/Salmeterol [Advair 500-50 Diskus] 2 puff IH BEDTIME 06/06/16 [ History] Glucosamine/Chondro He A [Cosamin DS] 2 tab PO DAILY 06/06/16 [History] Multivitamin [Multivitamins] 1 each PO DAILY 06/06/16 [History] Rosuvastatin [Crestor] 5 mg PO DAILY 06/06/16 [History] Theophylline [Carlito-24] 400 mg PO DAILY 06/06/16 [History] Acetylcysteine [Nac] 600 mg PO DAILY 07/21/16 [History] Albuterol Sulfate [Ventolin Hfa] 18 gm IH DAILY 07/21/16 [History] Glutamine [l-Glutamine] 2 tsp PO DAILY 07/21/16 [History] Magnesium 250 mg PO DAILY 07/21/16 [History] Ultra Meal Advance Protein Supplement 2 dose PO BID 07/21/16 [History] Protein Supplement [Procel] 1 pkt PO DAILY 11/07/16 [History] L.acidoph,Paracasei, B.lactis [Probiotic] 1 each PO DAILY 11/11/16 [History] Past Medical History HEENT History: Reports: Impaired Vision Other HEENT History: wears reading glasses Cardiovascular History: Reports: High Cholesterol, PVD, SOB on Exertion Other Cardiovascular History: ASCVD Respiratory History: Reports: Asthma, COPD, Sleep Apnea Other Respiratory History: pt does not wear his CPAP as prescibed Gastrointestinal History: Reports: None Genitourinary History: Reports: BPH Musculoskeletal History: Reports: Arthritis, Back Pain, Chronic, Osteoarthritis Neurological History: Reports: Head Trauma, Other (See Below) Other Neuro History: fell in May 2016 and hit head Psychiatric History: Reports: Addiction, Other (See Below) Other Psychiatric History: nighty ETOH drinks Immunologic History: Reports: Immunosuppression, Other (See Below) Other Immunologic History: from [place]. Oncologic (Cancer) History: Reports: Other (See Below) Other Oncologic History: melamona spots removed from head Dermatologic History: Reports: Other (See Below) Other Dermatologic History: very thin skin secondary to theophylline - Infectious Disease History Infectious Disease History: Reports: Chicken Pox, Measles - Past Surgical History HEENT Surgical History: Reports: Tonsillectomy, Other (See Below) Other HEENT Surgeries/Procedures: nose surgery Cardiovascular Surgical History: Reports: Vascular Surgery Respiratory Surgical History: Reports: None GI Surgical History: Reports: Colonoscopy Male Surgical History: Reports: None Musculoskeletal Surgical History: Reports: Other (See Below) Other Musculoskeletal Surgeries/Procedures:: recent surgery/removal of part of great toe on right foot; second and third toe amputated years ago; fractured ribs in May 2016 from falling; neck pain Social & Family History - Family History Family Medical History: Noncontributory - Tobacco Use Smoking Status *Q: Former Smoker Years of Tobacco use: 5 Packs/Tins Daily: 0.5 Used Tobacco, but Quit: Yes Month Tobacco Last Used: quit in the 70s - Caffeine Use Caffeine Use: Reports: Other Other Caffeine Use: half-caf coffee - Alcohol Use Days Per Week of Alcohol Use: 7 Number of Drinks Per Day: 1 Total Drinks Per Week: 7 - Recreational Drug Use Recreational Drug Use: No - Living Situation & Occupation Living situation: Reports: Occupation: Retired H&P Review of Systems - Review of Systems: Review Of Systems: See Below General: Reports: Fever, Chills, Malaise, Weakness, Fatigue, Decreased Appetite HEENT: Reports: No Symptoms Pulmonary: Reports: Shortness of Breath, Cough, Sputum Cardiovascular: Denies: Chest Pain, Dyspnea on Exertion Gastrointestinal: Reports: Nausea, Vomiting. Denies: Abdominal Pain Genitourinary: Denies: No Symptoms Musculoskeletal: Denies: No Symptoms Skin: Reports: No Symptoms Psychiatric: Denies: Anxiety, Hallucinations Neurological: Reports: Difficulty Walking, Weakness, Gait Disturbance. Denies: Confusion Hematologic/Lymphatic: Reports: Easy Bruising Immunologic: Reports: No Symptoms Exam - Exam Exam: See Below - Vital Signs Vital Signs: Last Vital Signs Temp 37.3 C 11/10/16 20:00 Pulse 128 H 11/10/16 20:00 Resp 16 11/10/16 20:00 BP 91/47 L 11/10/16 15:50 Pulse Ox 92 L 11/10/16 20:17 Weight: 67.222 kg - Exam Quality Assessment: Supplemental Oxygen General: Alert, Oriented, Cooperative. No: Mild Distress HEENT: Conjunctiva Clear, EACs Clear, EOMI, Hearing Intact, Mucosa Moist & [place] , Nares Patent, Normal Nasal Septum, Posterior Pharynx Clear, Pupils Equal, Pupils Reactive Neck: Supple, Trachea Midline, +2 Carotid Pulse wo Bruit, Other (no accessory msucle use). No: Full Range of Motion Lungs: Normal Respiratory Effort, Wheezing (mild) Cardiovascular: Regular Rate, Regular Rhythm Abdomen: Normal Bowel Sounds, Soft. No: Organomegaly, Tenderness (Male) Exam: Deferred Rectal (Males) Exam: Deferred Back Exam: Normal Inspection, Decreased Range of Motion Extremities: Normal Pulses, Other (hyperpigmenation; amputated right great toe w / a healing scab). No: Clubbing, Cyanosis, Edema Skin: Warm, Dry (very ), Intact Neuro Extensive - Mental Status: Oriented x3, Normal Cognition, Memory Intact Neuro Extensive - Motor, Sensory, Reflexes: CN II-XII Intact, Abnormal Gait (he weak) Psychiatric: Alert, Normal Affect, Normal Mood - Patient Data Result Diagrams: 11/11/16 05:55 11/11/16 05:55 *Q Meaningful Use (ADM) - VTE *Q VTE Criteria *Q: - Stroke *Q Stroke Criteria *Q: - AMI *Q AMI Criteria *Q: Problem List Initiated/Reviewed/Updated: Yes Orders Last 24hrs: Active Orders 24 hr Category Date Time Status Height and Weight [RC] 04 Care 11/10/16 16:09 Active Intake and Output [RC] QSHIFT Care 11/10/16 16:10 Active Oxygen Therapy [RC] PRN Care 11/10/16 16:10 Active Pulse Oximetry [RC] PRN Care 11/10/16 16:10 Active RT Aerosol Therapy [RC] ASDIRECTED Care 11/10/16 16:11 Active Up With Assistance [RC] ASDIRECTED Care 11/10/16 16:09 Active Up ad Vida [RC] ASDIRECTED Care 11/10/16 16:09 Active VTE/DVT Education [RC] 10,22 Care 11/10/16 16:10 Active Vital Signs [RC] Q4HR Care 11/10/16 16:10 Active Consult to Case Management [CONS] Routine Cons 11/10/16 16:12 Active Consult to Rehabilitation Attendant [CONS] Routine Cons 11/10/16 16:12 Active Consult to Spiritual Care [CONS] Routine Cons 11/10/16 16:12 Active OT Evaluation and Treatment [CONS] Routine Cons 11/10/16 16:12 Active PT Evaluation and Treatment [CONS] Routine Cons 11/10/16 16:12 Active Respiratory Care Assess and Treatment [CONS] Routine Cons 11/10/16 16:12 Active Regular Diet [DIET] Diet 11/10/16 Dinner Active Chest 2V [CR] AM Exams 11/12/16 05:11 Ordered BASIC METABOLIC PANEL,BMP [CHEM] AM Lab 11/11/16 05:11 Ordered BASIC METABOLIC PANEL,BMP [CHEM] AM Lab 11/12/16 05:11 Ordered BASIC METABOLIC PANEL,BMP [CHEM] AM Lab 11/13/16 05:11 Ordered BASIC METABOLIC PANEL,BMP [CHEM] AM Lab 11/14/16 05:11 Ordered C-REACTIVE PROTEIN [CHEM] AM Lab 11/11/16 05:11 Ordered C-REACTIVE PROTEIN [CHEM] AM Lab 11/12/16 05:11 Ordered C-REACTIVE PROTEIN [CHEM] AM Lab 11/13/16 05:11 Ordered C-REACTIVE PROTEIN [CHEM] AM Lab 11/14/16 05:11 Ordered CBC WITH AUTO DIFF [HEME] AM Lab 11/11/16 05:11 Ordered CBC WITH AUTO DIFF [HEME] AM Lab 11/12/16 05:11 Ordered CBC WITH AUTO DIFF [HEME] AM Lab 11/13/16 05:11 Ordered CBC WITH AUTO DIFF [HEME] AM Lab 11/14/16 05:11 Ordered MAGNESIUM [CHEM] AM Lab 11/11/16 05:11 Ordered MAGNESIUM [CHEM] AM Lab 11/12/16 05:11 Ordered MAGNESIUM [CHEM] AM Lab 11/13/16 05:11 Ordered MAGNESIUM [CHEM] AM Lab 11/14/16 05:11 Ordered Acetaminophen [Tylenol] Med 11/10/16 16:09 Active 650 mg PO Q4H PRN Acetaminophen/HYDROcodone [[place] 325-5 MG] Med 11/10/16 16:09 Active 1 tab PO Q4H PRN Acetylcysteine [Nac] Med 11/11/16 09:00 Active 600 mg PO DAILY Albuterol [Proventil HFA] Med 11/11/16 09:00 Active 18 gm INH DAILY Albuterol/Ipratropium [DuoNeb 3.0-0.5 MG/3 ML] Med 11/10/16 16:10 Active 3 ml NEB Q4H PRN Alendronate Med 11/12/16 16:07 Active 70 mg PO HE Azithromycin [Zithromax] 500 mg Med 11/10/16 09:00 Active Sodium Chloride 0.9% [Normal Saline] 250 ml IV Q24H Bisacodyl [Dulcolax] Med 11/10/16 16:10 Active 5 mg PO DAILY PRN Cholecalciferol (Vitamin D3) [Vitamin D3] Med 11/11/16 09:00 Active 2,000 units PO DAILY Docusate Sodium [Colace] Med 11/10/16 16:10 Active 100 mg PO BID PRN Docusate Sodium/Sennosides [Senna Plus] Med 11/10/16 16:10 Active 1 tab PO BID PRN Dronabinol [Marinol] Med 11/11/16 07:00 Active 2.5 mg PO TIDMEALS Enoxaparin [Lovenox] Med 11/11/16 09:00 Active 30 mg SUBCUT DAILY Fluticasone/Salmeterol [Advair Diskus 500-50] Med 11/10/16 21:00 Active 2 puff INH BEDTIME Glucosamine/Chondro He A [Cosamin DS] Med 11/11/16 09:00 Active 2 tab PO DAILY Glutamine [l-Glutamine] Med 11/11/16 09:00 Active 2 tsp PO DAILY LORazepam [Ativan] Med 11/10/16 16:10 Active 0.5 mg IV Q6H PRN Magnesium Rep Pharmacy to Dose [Pharmacy to Dose - Med 11/10/16 16:15 Pending Magnesium Replacement] 1 dose .XX ASDIRECTED Morphine Med 11/10/16 16:09 Active 1 mg IVPUSH Q4H PRN Multivitamins,Therapeutic [Thera] Med 11/11/16 09:00 Active 1 each PO DAILY Ondansetron [Zofran] Med 11/10/16 16:10 Active 4 mg IV Q6H PRN Polyethylene Glycol 3350 [MiraLAX] Med 11/10/16 16:10 Active 17 gm PO DAILY PRN Potassium Rep Pharmacy to Dose [Pharmacy to Dose - Med 11/10/16 16:15 Pending Potassium Replacement] 1 dose .XX ASDIRECTED Promethazine [Phenergan] 12.5 mg Med 11/10/16 16:10 Active Sodium Chloride 0.9% [Normal Saline] 50 ml IV Q6H Protein Supplement [Procel] Med 11/11/16 09:00 Active 1 pkt PO DAILY Rosuvastatin [Crestor] Med 11/11/16 09:00 Active 5 mg PO DAILY Temazepam [Restoril] Med 11/10/16 16:10 Active 15 mg PO BEDTIME PRN Theophylline [Theophylline Anhydrous] Med 11/11/16 09:00 Active 400 mg PO DAILY Ultra Meal Advance Protein Supplement Med 11/10/16 21:00 Active 2 dose PO BID cefTRIAXone [Rocephin] 1 gm Med 11/11/16 09:00 Active Sodium Chloride 0.9% [Normal Saline] 100 ml IV Q24H hydrALAZINE [Apresoline] Med 11/10/16 16:07 Active 20 mg IVPUSH Q4H PRN Resuscitation Status Routine Resus Stat 11/10/16 16:09 Ordered Medication Orders Acetaminophen (Tylenol) 650 mg PO Q4H PRN PRN Reason: Pain (Mild 1-3)/fever Last Admin: 11/10/16 18:59 Dose: 650 mg Hydrocodone Bitart/Acetaminophen ([place] 325-5 Mg) 1 tab PO Q4H PRN PRN Reason: Pain (moderate 4-6) Albuterol (Proventil Hfa) 18 gm INH DAILY [facility] Albuterol/Ipratropium (Duoneb 3.0-0.5 Mg/3 Ml) 3 ml NEB Q4H PRN PRN Reason: Shortness Of Breath/wheezing Bisacodyl (Dulcolax) 5 mg PO DAILY PRN PRN Reason: Constipation Cholecalciferol (Vitamin D3) 2,000 units PO DAILY [facility] Docusate Sodium (Colace) 100 mg PO BID PRN PRN Reason: Constipation Dronabinol (Marinol) 2.5 mg PO TIDMEALS [facility] Enoxaparin Sodium (Lovenox) 30 mg SUBCUT DAILY [facility] Hydralazine HCl (Apresoline) 20 mg IVPUSH Q4H PRN PRN Reason: Hypertension Sodium Chloride (Normal Saline) 1,000 mls @ 150 mls/hr IV ASDIRECTED [facility] Last Admin: 11/10/16 20:12 Dose: 150 mls/hr Infusion: 11/10/16 19:24 Dose: 150 mls/hr Admin: 11/10/16 12:43 Dose: 150 mls/hr Azithromycin 500 mg/ Sodium (Chloride) 250 mls @ 250 mls/hr IV Q24H [facility] Last Admin: 11/10/16 18:53 Dose: 250 mls/hr Promethazine HCl 12.5 mg/ (Sodium Chloride) 50.5 mls @ 100 mls/hr IV Q6H PRN PRN Reason: Nausea/Vomiting Ceftriaxone Sodium 1 gm/ (Sodium Chloride) 100 mls @ 200 mls/hr IV Q24H [facility] Lorazepam (Ativan) 0.5 mg IV Q6H PRN PRN Reason: Anxiety Magnesium Sulfate (Pharmacy To Dose - Magnesium Replacement) 1 dose .XX ASDIRECTED [facility] Morphine Sulfate (Morphine) 1 mg IVPUSH Q4H PRN PRN Reason: Other Stop: 11/13/16 16:10 Multivitamins (Thera) 1 each PO DAILY ARNIE Non-Formulary Medication (Acetylcysteine [Nac]) 600 mg PO DAILY [facility] Non-Formulary Medication (Alendronate) 70 mg PO HE ARNIE Non-Formulary Medication (Glucosamine/Chondro He A [Cosamin Ds]) 2 tab PO DAILY [facility]NIE Non-Formulary Medication (Glutamine [L-Glutamine]) 2 tsp PO DAILY ARNIE Non-Formulary Medication (Protein Supplement [Procel]) 1 pkt PO DAILY ARNIE Non-Formulary Medication (Ultra Meal Advance Protein Supplement) 2 dose PO BID [facility] Last Admin: 11/10/16 20:29 Dose: Ondansetron HCl (Zofran) 4 mg IV Q6H PRN PRN Reason: Nausea/Vomiting Polyethylene Glycol (Miralax) 17 gm PO DAILY PRN PRN Reason: Constipation Potassium Chloride (Pharmacy To Dose - Potassium Replacement) 1 dose .XX ASDIRECTED [facility] Rosuvastatin Calcium (Crestor) 5 mg PO DAILY [facility] Fluticasone/Salmeterol (Advair Diskus 500-50) 2 puff INH BEDTIME [facility] Last Admin: 11/10/16 20:16 Dose: 1 puff Senna/Docusate Sodium (Senna Plus) 1 tab PO BID PRN PRN Reason: Constipation Temazepam (Restoril) 15 mg PO BEDTIME PRN PRN Reason: Sleep Theophylline (Theophylline Anhydrous) 400 mg PO DAILY [facility] Assessment/Plan Comment:: Assessment/Plan: Acute: Febrile Illness - Likely 2/2 Bronchitis - No documented Temperature - Afebrile on admission - PRN Tylenol Acute Bronchitis - Risk Factor: Advanced Asthma/COPD - Cough up more than usual: brownish-greenish sputum - Mycoplasma Ag negative - Viral and Sputum Cx/Sx Eosinophilic Leukocytosis - Has underlying lung Disease - Unlikely parasitic - Also on steroids - Will monitor Hyponatremia - Na 122 - Hypovolemic - Poor oral intake - Currently receiving IVF - If not response, will start salt tablets Generalized Weakness/Decreased Functional Status - Multi-factorial - Advanced Lung Disease is a significant factor - PT/OT consult - TFT and Vit D level Chronic: HTN HLD PAH PVD ASCVD COPD CLAUDIO on CPAP (does not wear it) BPH OA Chronic Back Pain ETOH Use at night Plan: Admit to the floor Resume Home Meds Routine AM Labs PT/OT/RT consult SW/CM for d/c planning Code status: CPR only
[2016-11-10] MEDS ORDERED: Metoprolol Tartrate 2.5 MG in Sodium Chloride 0.9% 50 ML IV ONE (20:57)
[2016-11-10] MEDS ORDERED: PROTEIN SUPPLEMENT PO SCH (21:00)
[2016-11-10] MEDS ORDERED: Fluticasone/Salmeterol 500-50 MCG Inhalation Powder 14/Diskus INH SCH (21:00)
[2016-11-10] MEDS: guaiFENesin 600 MG Tab.ER PO SCH (21:12)
[2016-11-10] MEDS ORDERED: Metoprolol Tartrate 5 MG/5 ML SDV IVPUSH PRN (21:58)
[2016-11-10] MEDS ORDERED: Sodium Chloride 0.9% 250 ML IV SCH (21:58)
[2016-11-11] MEDS: Sodium Chloride 0.9% 1,000 ML IV SCH ×3 (01:00→20:45)
[2016-11-11] MEDS: Dronabinol 2.5 MG Cap PO SCH ×3 (06:51→16:07)
--- NOTE | 2016-11-11 08:03 | PCM.PN ---
- General Info Date of Service: 11/11/16 Admission Dx/Problem (Free Text): Acute Bronchitis and Febrile Illness Subjective Update: Follow Up Functional Status: Reports: pain controlled, tolerating diet, ambulating. Denies: urinating, new symptoms - Review of Systems General: Denies: Fever, Weakness, Chills HEENT: Reports: no symptoms Pulmonary: Reports: shortness of breath, cough, sputum Cardiovascular: Denies: Chest Pain, Palpitations, Dyspnea on Exertion Gastrointestinal: Denies: Abdominal pain, Nausea, Vomiting Genitourinary: Reports: no symptoms Musculoskeletal: Reports: no symptoms Skin: Reports: bruising. Denies: cyanosis, rash Neurological: Denies: Confusion, Dizziness, Difficulty Walking, Weakness, Gait Disturbance Psychiatric: Denies: depression, anxiety, agitation, hallucinations Systems Review Comment:: No overnight issues. He feels good and slept good. He is now cough up yellowish sputum. He has no new complaints. - Patient Data Vitals - most recent: Last Vital Signs Temp 36.6 C 11/11/16 00:40 Pulse 92 11/11/16 00:40 Resp 16 11/11/16 00:40 BP 112/82 11/11/16 00:40 Pulse Ox 93 L 11/11/16 00:40 Weight - most recent: 66.134 kg I&O - last 24 hours: Intake & Output 11/10/16 11/11/16 11/11/16 22:59 06:59 14:59 Intake Total 260 300 Output Total 1475 Balance 260 -1175 Lab Results last 24 hrs: Laboratory Results - last 24 hr 11/11/16 11/11/16 Range/Units 05:55 05:55 WBC 7.88 (4.23-9.07) K/mm3 RBC 4.50 L (4.63-6.08) M/mm3 Hgb 13.4 L (13.7-17.5) gm/L Hct 38.1 L (40.1-51.0) % MCV 84.7 (79.0-92.2) fl MCH 29.8 (25.7-32.2) pg MCHC 35.2 (32.2-35.5) g/dl RDW Std Deviation 38.4 (35.1-43.9) fL Plt Count 265 (163-337) K/mm3 MPV 9.6 (9.4-12.3) fl Neut % (Auto) 85.8 H (34.0-67.9) % Lymph % (Auto) 9.0 L (21.8-53.1) % Barren % (Auto) 4.3 L (5.3-12.2) % Eos % (Auto) 0.3 L (0.8-7.0) Baso % (Auto) 0.1 (0.1-1.2) % Neut # (Auto) 6.76 H (1.78-5.38) K/mm3 Lymph # (Auto) 0.71 L (1.32-3.57) K/mm3 Barren # (Auto) 0.34 (0.30-0.82) K/mm3 Eos # (Auto) 0.02 L (0.04-0.54) K/mm3 Baso # (Auto) 0.01 (0.01-0.08) K/mm3 Sodium 134 L (136-145) mEq/L Potassium 3.8 (3.5-5.1) mEq/L Chloride 102 (98-107) mEq/L Carbon Dioxide 20 L (21-32) mEq/L Anion Gap 15.8 H (5-15) BUN 8 (7-18) mg/dL Creatinine 0.7 (0.7-1.3) mg/dL Est Cr Clr Drug Dosing 83.98 mL/min Estimated GFR (MDRD) > 60 (>60) mL/min BUN/Creatinine Ratio 11.4 L (14-18) Glucose 154 H (83-115) mg/dL Calcium 8.2 L (8.5-10.1) mg/dL Magnesium 2.0 (1.8-2.4) mg/dl C-Reactive Protein 15.1 H* (<1.0) mg/dL Med Orders - Current: Current Medications Acetaminophen (Tylenol) 650 mg PO Q4H PRN PRN Reason: Pain (Mild 1-3)/fever Last Admin: 11/10/16 18:59 Dose: 650 mg Hydrocodone Bitart/Acetaminophen ([place] 325-5 Mg) 1 tab PO Q4H PRN PRN Reason: Pain (moderate 4-6) Albuterol (Proventil Hfa) 18 gm INH DAILY ARNIE Albuterol/Ipratropium (Duoneb 3.0-0.5 Mg/3 Ml) 3 ml NEB Q4H PRN PRN Reason: Shortness Of Breath/wheezing Bisacodyl (Dulcolax) 5 mg PO DAILY PRN PRN Reason: Constipation Cholecalciferol (Vitamin D3) 2,000 units PO DAILY [facility] Docusate Sodium (Colace) 100 mg PO BID PRN PRN Reason: Constipation Dronabinol (Marinol) 2.5 mg PO TIDMEALS [facility] Last Admin: 11/11/16 06:51 Dose: 2.5 mg Enoxaparin Sodium (Lovenox) 30 mg SUBCUT DAILY [facility] Guaifenesin (Mucinex) 1,200 mg PO BID [facility] Last Admin: 11/10/16 21:12 Dose: 1,200 mg Hydralazine HCl (Apresoline) 20 mg IVPUSH Q4H PRN PRN Reason: Hypertension Azithromycin 500 mg/ Sodium (Chloride) 250 mls @ 250 mls/hr IV Q24H [facility] Last Admin: 11/10/16 18:53 Dose: 250 mls/hr Promethazine HCl 12.5 mg/ (Sodium Chloride) 50.5 mls @ 100 mls/hr IV Q6H PRN PRN Reason: Nausea/Vomiting Ceftriaxone Sodium 1 gm/ (Sodium Chloride) 100 mls @ 200 mls/hr IV Q24H [facility] Sodium Chloride (Normal Saline) 1,000 mls @ 150 mls/hr IV ASDIRECTED [facility] Last Admin: 11/11/16 06:52 Dose: 150 mls/hr Lorazepam (Ativan) 0.5 mg IV Q6H PRN PRN Reason: Anxiety Magnesium Sulfate (Pharmacy To Dose - Magnesium Replacement) 1 dose .XX ASDIRECTED [facility] Metoprolol Tartrate (Lopressor) 2.5 mg IVPUSH Q4H PRN PRN Reason: Tachycardia Morphine Sulfate (Morphine) 1 mg IVPUSH Q4H PRN PRN Reason: Other Stop: 11/13/16 16:10 Multivitamins (Thera) 1 each PO DAILY [facility] Non-Formulary Medication (Acetylcysteine [Nac]) 600 mg PO DAILY [facility] Non-Formulary Medication (Alendronate) 70 mg PO HE [facility] Non-Formulary Medication (Glucosamine/Chondro He A [Cosamin Ds]) 2 tab PO DAILY [facility] Non-Formulary Medication (Glutamine [L-Glutamine]) 2 tsp PO DAILY [facility] Non-Formulary Medication (Protein Supplement [Procel]) 1 pkt PO DAILY [facility] Non-Formulary Medication (Ultra Meal Advance Protein Supplement) 2 dose PO BID [facility] Last Admin: 11/10/16 20:29 Dose: Not Given Ondansetron HCl (Zofran) 4 mg IV Q6H PRN PRN Reason: Nausea/Vomiting Polyethylene Glycol (Miralax) 17 gm PO DAILY PRN PRN Reason: Constipation Potassium Chloride (Pharmacy To Dose - Potassium Replacement) 1 dose .XX ASDIRECTED [facility] Rosuvastatin Calcium (Crestor) 5 mg PO DAILY [facility] Fluticasone/Salmeterol (Advair Diskus 500-50) 2 puff INH BEDTIME [facility] Last Admin: 11/10/16 20:16 Dose: 1 puff Senna/Docusate Sodium (Senna Plus) 1 tab PO BID PRN PRN Reason: Constipation Temazepam (Restoril) 15 mg PO BEDTIME PRN PRN Reason: Sleep Theophylline (Theophylline Anhydrous) 400 mg PO DAILY [facility] Discontinued Medications Dronabinol (Marinol) 5 mg PO ONETIME ONE Stop: 11/10/16 16:15 Last Admin: 11/10/16 18:53 Dose: 5 mg Lactated Ringer's (Ringers, Lactated) 1,000 mls @ 999 mls/hr IV .BOLUS ONE Stop: 11/10/16 11:57 Last Admin: 11/10/16 11:15 Dose: 999 mls/hr Sodium Chloride (Normal Saline) 1,000 mls @ 150 mls/hr IV ASDIRECTED [facility] Last Admin: 11/10/16 20:12 Dose: 150 mls/hr Piperacillin Sod/Tazobactam (Sod 4.5 gm/ Sodium Chloride) 100 mls @ 200 mls/hr IV ONETIME ONE Stop: 11/10/16 14:07 Last Admin: 11/10/16 13:49 Dose: 200 mls/hr Azithromycin 250 mg/ Sodium (Chloride) 250 mls @ 250 mls/hr IV ONETIME ONE Stop: 11/10/16 17:07 Last Admin: 11/10/16 18:54 Dose: Not Given Metoprolol Tartrate 2.5 mg/ (Sodium Chloride) 52.5 mls @ 100 mls/hr IV ONETIME ONE Stop: 11/10/16 21:29 Last Admin: 11/10/16 21:07 Dose: 100 mls/hr Sodium Chloride (Normal Saline) 250 mls @ 500 mls/hr IV ASDIRECTED ARNIE Methylprednisolone Sodium Succinate (Solu-Medrol) 80 mg IVPUSH ONETIME ONE Stop: 11/10/16 13:33 Last Admin: 11/10/16 13:47 Dose: 80 mg Pneumococcal 13-Valent Conj Vacc (Prevnar 13) 0.5 ml IM .ONCE ONE Stop: 11/10/16 18:39 - Exam Quality Assessment: supplemental oxygen General: alert, oriented, cooperative, no acute distress HEENT: Pupils equal, Pupils reactive, EOMI, Mucous membr. moist/pink Neck: supple, trachea midline, no JVD, no thyromegaly Lungs: Normal respiratory effort, Decreased breath sounds Cardiovascular: Regular Rate, Regular Rhythm Abdomen: bowel sounds present, soft, no tenderness, no distension (Male) Exam: Deferred Back Exam: Normal Inspection, Decreased Range of Motion Extremities: no edema, normal pulses, no tenderness/swelling, no clubbing, no cyanosis, no calf tenderness, other (discolored skin with ecchymoses) Skin: warm, dry, ecchymosis Neurological: no new focal deficit Psy/Mental Status: alert, normal affect - Problem List Review Problem List Initiated/Reviewed/Updated: Yes - My Orders Last 24 Hours: My Active Orders 11/10/16 09:00 Azithromycin [Zithromax] 500 mg Sodium Chloride 0.9% [Normal Saline] 250 ml IV Q24H 11/10/16 16:07 hydrALAZINE [Apresoline] 20 mg IVPUSH Q4H PRN 11/10/16 16:09 Height and Weight [RC] 04 Up With Assistance [RC] ASDIRECTED Up ad Vida [RC] ASDIRECTED Acetaminophen [Tylenol] 650 mg PO Q4H PRN Acetaminophen/HYDROcodone [[place] 325-5 MG] 1 tab PO Q4H PRN Morphine 1 mg IVPUSH Q4H PRN Resuscitation Status Routine 11/10/16 16:10 Intake and Output [RC] 04,16 Oxygen Therapy [RC] PRN Pulse Oximetry [RC] PRN VTE/DVT Education [RC] 10,22 Vital Signs [RC] Q4HR Albuterol/Ipratropium [DuoNeb 3.0-0.5 MG/3 ML] 3 ml NEB Q4H PRN Bisacodyl [Dulcolax] 5 mg PO DAILY PRN Docusate Sodium [Colace] 100 mg PO BID PRN Docusate Sodium/Sennosides [Senna Plus] 1 tab PO BID PRN LORazepam [Ativan] 0.5 mg IV Q6H PRN Ondansetron [Zofran] 4 mg IV Q6H PRN Polyethylene Glycol 3350 [MiraLAX] 17 gm PO DAILY PRN Promethazine [Phenergan] 12.5 mg Sodium Chloride 0.9% [Normal Saline] 50 ml IV Q6H Temazepam [Restoril] 15 mg PO BEDTIME PRN 11/10/16 16:11 RT Aerosol Therapy [RC] ASDIRECTED 11/10/16 16:12 Consult to Case Management [CONS] Routine Consult to Speech Language Specialist [CONS] Routine Consult to Spiritual Care [CONS] Routine OT Evaluation and Treatment [CONS] Routine PT Evaluation and Treatment [CONS] Routine Respiratory Care Assess and Treatment [CONS] Routine 11/10/16 16:15 Magnesium Rep Pharmacy to Dose [Pharmacy to Dose - Magnesium Replacement] 1 dose .XX ASDIRECTED Potassium Rep Pharmacy to Dose [Pharmacy to Dose - Potassium Replacement] 1 dose .XX ASDIRECTED 11/10/16 21:00 Fluticasone/Salmeterol [Advair Diskus 500-50] 2 puff INH BEDTIME Ultra Meal Advance Protein Supplement 2 dose PO BID guaiFENesin [Mucinex] 1,200 mg PO BID 11/10/16 21:58 Metoprolol Tartrate [Lopressor] 2.5 mg IVPUSH Q4H PRN 11/10/16 22:00 Sodium Chloride 0.9% [Normal Saline] 1,000 ml IV ASDIRECTED 11/10/16 Dinner Regular Diet [DIET] 11/11/16 05:55 CBC WITH AUTO DIFF [HEME] AM 11/11/16 07:00 Dronabinol [Marinol] 2.5 mg PO TIDMEALS 11/11/16 09:00 Acetylcysteine [Nac] 600 mg PO DAILY Albuterol [Proventil HFA] 18 gm INH DAILY Cholecalciferol (Vitamin D3) [Vitamin D3] 2,000 units PO DAILY Enoxaparin [Lovenox] 30 mg SUBCUT DAILY Glucosamine/Chondro He A [Cosamin DS] 2 tab PO DAILY Glutamine [l-Glutamine] 2 tsp PO DAILY Multivitamins,Therapeutic [Thera] 1 each PO DAILY Protein Supplement [Procel] 1 pkt PO DAILY Rosuvastatin [Crestor] 5 mg PO DAILY Theophylline [Theophylline Anhydrous] 400 mg PO DAILY cefTRIAXone [Rocephin] 1 gm Sodium Chloride 0.9% [Normal Saline] 100 ml IV Q24H 11/12/16 05:11 Chest 2V [CR] AM BASIC METABOLIC PANEL,BMP [CHEM] AM C-REACTIVE PROTEIN [CHEM] AM CBC WITH AUTO DIFF [HEME] AM MAGNESIUM [CHEM] AM 11/12/16 16:07 Alendronate 70 mg PO HE 11/13/16 05:11 BASIC METABOLIC PANEL,BMP [CHEM] AM C-REACTIVE PROTEIN [CHEM] AM CBC WITH AUTO DIFF [HEME] AM MAGNESIUM [CHEM] AM 11/14/16 05:11 BASIC METABOLIC PANEL,BMP [CHEM] AM C-REACTIVE PROTEIN [CHEM] AM CBC WITH AUTO DIFF [HEME] AM MAGNESIUM [CHEM] AM - Plan Plan:: Assessment/Plan: Acute: Febrile Illness - Likely 2/2 Bronchitis - No documented Temperature - Afebrile on admission - PRN Tylenol Acute Bronchitis - Risk Factor: Advanced Asthma/COPD - Cough up more than usual: brownish-greenish sputum - Decongestant/Expectorant/FV/IS and Iv Azith/Rocephin - Mycoplasma Ag negative - Viral and Sputum Cx/Sx Eosinophilic Leukocytosis WBC 11.52 ---> now 7.8 - Has underlying lung Disease - Unlikely parasitic - Also on steroids Hyponatremia - Na 122 --> 134 - Hypovolemic - Poor oral intake - Currently receiving IVF - If not response, will start salt tablets Generalized Weakness/Decreased Functional Status - Multi-factorial - Advanced Lung Disease is a significant factor - PT/OT consult - TFT and Vit D level Chronic: HTN HLD PAH PVD ASCVD Advanced COPD/Asthma CLAUDIO on CPAP (does not wear it) BPH OA Chronic Back Pain ETOH Use at night Plan: He is fairly stable Routine AM Labs Continue marinol for appetite stimulant Continue PT/OT/RT SW/CM for d/c planning Code status: CPR only
[2016-11-11] MEDS ORDERED: Albuterol 6.7 GM Inhaler INH PRN (08:09)
[2016-11-11] MEDS ORDERED: Non-Formulary Medication 1 Each (Acetylcysteine [Nac] 600 MG) PO SCH (09:00)
[2016-11-11] MEDS ORDERED: cefTRIAXone 1 GM in Sodium Chloride 0.9% 100 ML IV SCH (09:00)
[2016-11-11] MEDS ORDERED: Albuterol 6.7 GM Inhaler INH SCH (09:00)
[2016-11-11] MEDS ORDERED: Enoxaparin 30 MG/0.3 ML Syringe SUBCUT SCH (09:00)
[2016-11-11] MEDS: Albuterol 6.7 GM Inhaler INH SCH (09:14)
[2016-11-11] MEDS: guaiFENesin 600 MG Tab.ER PO SCH ×2 (09:19→20:45)
[2016-11-11] MEDS: Multivitamins,Therapeutic Tab PO SCH (09:19)
[2016-11-11] MEDS: Cholecalciferol (Vitamin D3) 1,000 Unit Tab PO SCH (09:19)
[2016-11-11] MEDS: Rosuvastatin 10 MG Tab PO SCH (09:19)
[2016-11-11] MEDS: Azithromycin 500 MG in Sodium Chloride 0.9% 250 ML IV SCH (09:21)
[2016-11-11] MEDS: Theophylline 200 MG Tab.ER PO SCH (09:59)
[2016-11-11] MEDS: cefTRIAXone 1 GM in Sodium Chloride 0.9% 100 ML IV SCH (10:01)
[2016-11-11] MEDS: GLUTAMINE PO SCH (11:13)
[2016-11-11] MEDS: GLUCOSAMINE PO SCH (11:13)
[2016-11-11] MEDS: PROTEIN SUPPLEMENT PO SCH ×3 (11:13→22:09)
[2016-11-11] MEDS: CHONDRO SU A PO SCH (11:13)
[2016-11-11] MEDS ORDERED: Sodium Chloride 0.9% 500 ML IV ONE (12:33)
[2016-11-11] MEDS: Fluticasone/Salmeterol 500-50 MCG Inhalation Powder 14/Diskus INH SCH (20:12)
[2016-11-12] MEDS: Sodium Chloride 0.9% 1,000 ML IV SCH (03:26)
[2016-11-12] MEDS: Dronabinol 2.5 MG Cap PO SCH ×3 (06:48→16:07)
[2016-11-12] MEDS: cefTRIAXone 1 GM in Sodium Chloride 0.9% 100 ML IV SCH (09:05)
[2016-11-12] MEDS: Azithromycin 500 MG in Sodium Chloride 0.9% 250 ML IV SCH (09:05)
[2016-11-12] MEDS: Rosuvastatin 10 MG Tab PO SCH (09:12)
[2016-11-12] MEDS: Multivitamins,Therapeutic Tab PO SCH (09:12)
[2016-11-12] MEDS: Enoxaparin 40 MG/0.4 ML Syringe SUBCUT SCH (09:13)
[2016-11-12] MEDS: Cholecalciferol (Vitamin D3) 1,000 Unit Tab PO SCH (09:13)
[2016-11-12] MEDS: guaiFENesin 600 MG Tab.ER PO SCH ×2 (09:13→20:28)
[2016-11-12] MEDS: Theophylline 200 MG Tab.ER PO SCH (09:14)
[2016-11-12] MEDS: Albuterol 6.7 GM Inhaler INH SCH (09:21)
[2016-11-12] MEDS: CHONDRO SU A PO SCH (09:23)
[2016-11-12] MEDS: GLUCOSAMINE PO SCH (09:23)
[2016-11-12] MEDS: PROTEIN SUPPLEMENT PO SCH ×3 (09:24→20:29)
[2016-11-12] MEDS: GLUTAMINE PO SCH (09:24)
--- NOTE | 2016-11-12 09:53 | CR ---
Chest: 2 views of the chest were obtained. Comparison: Previous chest x-ray of 11/10/16. Healing rib fractures are again noted bilaterally. Heart size and mediastinum are normal. Mild tortuosity of the thoracic aorta is again seen. Atelectasis is seen within the left and right lung bases. Central lung markings are slightly increased believed to represent mild bronchitis on the right side. No alveolar type densities are seen. Previous lower lumbar spine surgery is noted. Impression: 1. Slight increased lung markings on the right side believed to represent mild bronchitis. 2. Mild areas of atelectasis are seen within both lungs. 3. Other incidental findings. Diagnostic code #3
--- NOTE | 2016-11-12 10:36 | PCM.PN ---
- General Info Date of Service: 11/12/16 Functional Status: Reports: tolerating diet, ambulating (walker), urinating - Review of Systems General: Reports: No Symptoms HEENT: Reports: no symptoms Pulmonary: Reports: no symptoms Cardiovascular: Reports: No Symptoms Gastrointestinal: Reports: No symptoms Genitourinary: Reports: no symptoms Musculoskeletal: Reports: no symptoms Skin: Reports: no symptoms Neurological: Reports: No Symptoms Psychiatric: Reports: other (insomnia) - Patient Data Vitals - most recent: Last Vital Signs Temp 37.1 C 11/12/16 09:12 Pulse 87 11/12/16 09:12 Resp 20 11/12/16 09:12 BP 137/91 H 11/12/16 09:12 Pulse Ox 93 L 11/12/16 09:21 Weight - most recent: 69.218 kg I&O - last 24 hours: Intake & Output 11/11/16 11/12/16 11/12/16 22:59 06:59 14:59 Intake Total 2710 2072 710 Output Total 1000 1150 Balance 1710 922 710 Lab Results last 24 hrs: Laboratory Results - last 24 hr 11/11/16 11/12/16 11/12/16 Range/Units 05:55 06:04 06:04 WBC 9.69 H (4.23-9.07) K/mm3 RBC 4.05 L (4.63-6.08) M/mm3 Hgb 11.9 L (13.7-17.5) gm/L Hct 34.9 L (40.1-51.0) % MCV 86.2 (79.0-92.2) fl MCH 29.4 (25.7-32.2) pg MCHC 34.1 (32.2-35.5) g/dl RDW Std Deviation 40.4 (35.1-43.9) fL Plt Count 318 (163-337) K/mm3 MPV 9.3 L (9.4-12.3) fl Neut % (Auto) 74.3 H (34.0-67.9) % Lymph % (Auto) 14.3 L (21.8-53.1) % Divide % (Auto) 9.7 (5.3-12.2) % Eos % (Auto) 0.9 (0.8-7.0) Baso % (Auto) 0.2 (0.1-1.2) % Neut # (Auto) 7.19 H (1.78-5.38) K/mm3 Lymph # (Auto) 1.39 (1.32-3.57) K/mm3 Divide # (Auto) 0.94 H (0.30-0.82) K/mm3 Eos # (Auto) 0.09 (0.04-0.54) K/mm3 Baso # (Auto) 0.02 (0.01-0.08) K/mm3 Sodium 140 (136-145) mEq/L Potassium 3.5 (3.5-5.1) mEq/L Chloride 108 H (98-107) mEq/L Carbon Dioxide 22 (21-32) mEq/L Anion Gap 13.5 (5-15) BUN 9 (7-18) mg/dL Creatinine 0.7 (0.7-1.3) mg/dL Est Cr Clr Drug Dosing 87.90 mL/min Estimated GFR (MDRD) > 60 (>60) mL/min BUN/Creatinine Ratio 12.9 L (14-18) Glucose 98 (83-115) mg/dL Calcium 7.8 L (8.5-10.1) mg/dL Magnesium 1.9 (1.8-2.4) mg/dl C-Reactive Protein 6.2 H* (<1.0) mg/dL Free T4 1.25 (0.76-1.46) ng/dL TSH 3rd Generation 1.261 (0.358-3.74) uIU/mL Cedric Results last 24 hrs: Microbiology 11/11/16 17:27 Urine Culture - Preliminary Urine, Voided NO GROWTH AFTER 1 DAY 11/11/16 11:40 Gram Stain - Final Sputum - Expectorated Med Orders - Current: Current Medications Acetaminophen (Tylenol) 650 mg PO Q4H PRN PRN Reason: Pain (Mild 1-3)/fever Last Admin: 11/10/16 18:59 Dose: 650 mg Hydrocodone Bitart/Acetaminophen ([place] 325-5 Mg) 1 tab PO Q4H PRN PRN Reason: Pain (moderate 4-6) Albuterol (Proventil Hfa) 0 gm INH Q4H PRN PRN Reason: sob/wheeze Albuterol (Proventil Hfa) 0 gm INH DAILY ARINE Last Admin: 11/12/16 09:21 Dose: 2 puff Albuterol/Ipratropium (Duoneb 3.0-0.5 Mg/3 Ml) 3 ml NEB Q4H PRN PRN Reason: Shortness Of Breath/wheezing Bisacodyl (Dulcolax) 5 mg PO DAILY PRN PRN Reason: Constipation Cholecalciferol (Vitamin D3) 2,000 units PO DAILY [facility]END[facility] TO [facility] Last Admin: 11/12/16 09:13 Dose: 2,000 units Docusate Sodium (Colace) 100 mg PO BID PRN PRN Reason: Constipation Dronabinol (Marinol) 2.5 mg PO TIDMEALS [facility] Last Admin: 11/12/16 06:48 Dose: 2.5 mg Enoxaparin Sodium (Lovenox) 40 mg SUBCUT DAILY [facility] Last Admin: 11/12/16 09:13 Dose: 40 mg Guaifenesin (Mucinex) 1,200 mg PO BID [facility] Last Admin: 11/12/16 09:13 Dose: 1,200 mg Hydralazine HCl (Apresoline) 20 mg IVPUSH Q4H PRN PRN Reason: Hypertension Azithromycin 500 mg/ Sodium (Chloride) 250 mls @ 250 mls/hr IV Q24H [facility] Last Admin: 11/12/16 09:05 Dose: 250 mls/hr Promethazine HCl 12.5 mg/ (Sodium Chloride) 50.5 mls @ 100 mls/hr IV Q6H PRN PRN Reason: Nausea/Vomiting Ceftriaxone Sodium 1 gm/ (Sodium Chloride) 100 mls @ 200 mls/hr IV Q24H [facility] Last Admin: 11/12/16 09:05 Dose: 200 mls/hr Lorazepam (Ativan) 0.5 mg IV Q6H PRN PRN Reason: Anxiety Magnesium Sulfate (Pharmacy To Dose - Magnesium Replacement) 0 dose .XX ASDIRECTED PRN PRN Reason: RX TO MONITOR MAG LEVELS Metoprolol Tartrate (Lopressor) 2.5 mg IVPUSH Q4H PRN PRN Reason: Tachycardia Morphine Sulfate (Morphine) 1 mg IVPUSH Q4H PRN PRN Reason: Other Stop: 11/13/16 16:10 Multivitamins (Thera) 1 each PO DAILY [facility] Last Admin: 11/12/16 09:12 Dose: 1 each Ondansetron HCl (Zofran) 4 mg IV Q6H PRN PRN Reason: Nausea/Vomiting Alendronate 70 Mg 0 each PO He@0500 [facility] Last Admin: 11/12/16 06:47 Dose: Not Given Glucosamine/Chondro (He A [Cosamin Ds]) 0 each PO DAILY [facility] Last Admin: 11/12/16 09:23 Dose: Not Given L-Glutamine 0 each PO DAILY [facility] Last Admin: 11/12/16 09:24 Dose: Not Given Protein Supplement [ (Procel] 1 Pkt)) 0 each PO DAILY [facility] Last Admin: 11/12/16 09:24 Dose: Not Given Ultra Meal Advance (Protein Supplement) 0 each PO BID [facility] Last Admin: 11/12/16 09:24 Dose: Not Given Acetylcysteine [Nac] (600 Mg) 0 each PO DAILY [facility] Last Admin: 11/12/16 09:23 Dose: Not Given Polyethylene Glycol (Miralax) 17 gm PO DAILY PRN PRN Reason: Constipation Potassium Chloride (Pharmacy To Dose - Potassium Replacement) 0 dose .XX ASDIRECTED PRN PRN Reason: RX TO MONITOR K LEVELS Rosuvastatin Calcium (Crestor) 5 mg PO DAILY [facility] Last Admin: 11/12/16 09:12 Dose: 5 mg Fluticasone/Salmeterol (Advair Diskus 500-50) 1 puff INH BEDTIME [facility] Last Admin: 11/11/16 20:12 Dose: 1 puff Senna/Docusate Sodium (Senna Plus) 1 tab PO BID PRN PRN Reason: Constipation Temazepam (Restoril) 15 mg PO BEDTIME PRN PRN Reason: Sleep Last Admin: 11/11/16 22:11 Dose: 15 mg Theophylline (Theophylline Anhydrous) 400 mg PO DAILY [facility] Last Admin: 11/12/16 09:14 Dose: 400 mg Discontinued Medications Albuterol (Proventil Hfa) 18 gm INH DAILY [facility]END[facility] TO [facility] Dronabinol (Marinol) 5 mg PO ONETIME ONE Stop: 11/10/16 16:15 Last Admin: 11/10/16 18:53 Dose: 5 mg Enoxaparin Sodium (Lovenox) 30 mg SUBCUT DAILY [facility] Last Admin: 11/11/16 09:20 Dose: 30 mg Lactated Ringer's (Ringers, Lactated) 1,000 mls @ 999 mls/hr IV .BOLUS ONE Stop: 11/10/16 11:57 Last Admin: 11/10/16 11:15 Dose: 999 mls/hr Sodium Chloride (Normal Saline) 1,000 mls @ 150 mls/hr IV ASDIRECTED PENDING [facility]ALE TO [facility] Last Admin: 11/10/16 20:12 Dose: 150 mls/hr Piperacillin Sod/Tazobactam (Sod 4.5 gm/ Sodium Chloride) 100 mls @ 200 mls/hr IV ONETIME ONE Stop: 11/10/16 14:07 Last Admin: 11/10/16 13:49 Dose: 200 mls/hr Azithromycin 250 mg/ Sodium (Chloride) 250 mls @ 250 mls/hr IV ONETIME ONE Stop: 11/10/16 17:07 Last Admin: 11/10/16 18:54 Dose: Not Given Ceftriaxone Sodium 1 gm/ (Sodium Chloride) 100 mls @ 200 mls/hr IV Q24H PENDING [facility]ALE TO [facility] Last Admin: 11/11/16 12:26 Dose: Not Given Metoprolol Tartrate 2.5 mg/ (Sodium Chloride) 52.5 mls @ 100 mls/hr IV ONETIME ONE Stop: 11/10/16 21:29 Last Admin: 11/10/16 21:07 Dose: 100 mls/hr Sodium Chloride (Normal Saline) 250 mls @ 500 mls/hr IV ASDIRECTED PENDING SALE TO [facility] Sodium Chloride (Normal Saline) 1,000 mls @ 150 mls/hr IV ASDIRECTED PENDING SALE TO [facility] Last Admin: 11/12/16 03:26 Dose: 150 mls/hr Sodium Chloride (Normal Saline) 500 mls @ 999 mls/hr IV .BOLUS ONE Stop: 11/11/16 13:03 Last Admin: 11/11/16 12:35 Dose: 999 mls/hr Methylprednisolone Sodium Succinate (Solu-Medrol) 80 mg IVPUSH ONETIME ONE Stop: 11/10/16 13:33 Last Admin: 11/10/16 13:47 Dose: 80 mg Non-Formulary Medication (Acetylcysteine [Nac]) 600 mg PO DAILY PENDING SALE TO [facility] Non-Formulary Medication (Ultra Meal Advance Protein Supplement) 2 dose PO BID PENDING [facility] TO [facility] Last Admin: 11/10/16 20:29 Dose: Not Given Pneumococcal 13-Valent Conj Vacc (Prevnar 13) 0.5 ml IM .ONCE ONE Stop: 11/10/16 18:39 Fluticasone/Salmeterol (Advair Diskus 500-50) 2 puff INH BEDTIME ARNIE Last Admin: 11/10/16 20:16 Dose: 1 puff - Exam Quality Assessment: supplemental oxygen, DVT prophylaxis General: alert, oriented, cooperative, no acute distress HEENT: Pupils equal, Pupils reactive, EOMI Neck: supple, trachea midline Lungs: Normal respiratory effort, Decreased breath sounds, Rhonchi Cardiovascular: Regular Rate Abdomen: bowel sounds present, soft, no tenderness, no distension (Male) Exam: Deferred Back Exam: Normal Inspection Extremities: normal pulses Skin: warm Neurological: no new focal deficit Psy/Mental Status: alert, normal affect, normal mood - Problem List Review Problem List Initiated/Reviewed/Updated: Yes - Plan Plan:: Assessment/Plan: Acute: Febrile Illness - Likely 2/2 Bronchitis - No documented Temperature - Afebrile on admission - PRN Tylenol Acute Bronchitis - Risk Factor: Advanced Asthma/COPD - Cough up more than usual: brownish-greenish sputum - Decongestant/Expectorant/FV/IS and Iv Azith/Rocephin - Mycoplasma Ag negative - Viral and Sputum Cx/Sx Eosinophilic Leukocytosis WBC 11.52 ---> now 7.8 - Has underlying lung Disease - Unlikely parasitic - Also on steroids Hyponatremia - Na 122 --> 134 - Hypovolemic - Poor oral intake - Currently receiving IVF - If not response, will start salt tablets Generalized Weakness/Decreased Functional Status - Multi-factorial - Advanced Lung Disease is a significant factor - PT/OT consult - TFT and Vit D level Chronic: HTN HLD PAH PVD ASCVD Advanced COPD/Asthma CLAUDIO on CPAP (does not wear it) BPH OA Chronic Back Pain ETOH Use at night Plan: He is fairly stable Routine AM Labs Continue marinol for appetite stimulant Continue PT/OT/RT SW/CM for d/c planning Code status: CPR only
[2016-11-12] MEDS ORDERED: Temazepam 15 MG Cap PO PRN (11:39)
[2016-11-12] MEDS: Loratadine 10 MG Tab PO SCH ×2 (16:07→20:28)
[2016-11-12] MEDS: Acetaminophen 325 MG Tab PO PRN (18:07)
[2016-11-12] MEDS: Potassium Chloride 10% 20 MEQ/15 ML Soln 30 ML UD Cup PO SCH (20:27)
[2016-11-12] MEDS: Acetaminophen/HYDROcodone 325-5 MG Tab PO PRN (20:27)
[2016-11-12] MEDS: Fluticasone/Salmeterol 500-50 MCG Inhalation Powder 14/Diskus INH SCH (20:32)
[2016-11-13] MEDS: Dronabinol 2.5 MG Cap PO SCH ×3 (06:28→16:27)
[2016-11-13] MEDS: Cholecalciferol (Vitamin D3) 1,000 Unit Tab PO SCH (08:21)
[2016-11-13] MEDS: Loratadine 10 MG Tab PO SCH ×2 (08:21→20:45)
[2016-11-13] MEDS: guaiFENesin 600 MG Tab.ER PO SCH ×2 (08:21→20:44)
[2016-11-13] MEDS: Multivitamins,Therapeutic Tab PO SCH (08:21)
[2016-11-13] MEDS: Rosuvastatin 10 MG Tab PO SCH (08:21)
[2016-11-13] MEDS: Potassium Chloride 10% 20 MEQ/15 ML Soln 30 ML UD Cup PO SCH ×2 (08:21→20:44)
[2016-11-13] MEDS: Enoxaparin 40 MG/0.4 ML Syringe SUBCUT SCH (08:22)
[2016-11-13] MEDS: Theophylline 200 MG Tab.ER PO SCH (08:22)
[2016-11-13] MEDS: Albuterol 6.7 GM Inhaler INH SCH (08:53)
[2016-11-13] MEDS: PROTEIN SUPPLEMENT PO SCH ×3 (09:13→20:46)
[2016-11-13] MEDS: CHONDRO SU A PO SCH (09:13)
[2016-11-13] MEDS: GLUCOSAMINE PO SCH (09:13)
[2016-11-13] MEDS: GLUTAMINE PO SCH (09:13)
[2016-11-13] MEDS ORDERED: Furosemide 20 MG/2 ML VIAL IVPUSH ONE (10:15)
[2016-11-13] MEDS: Azithromycin 500 MG in Sodium Chloride 0.9% 250 ML IV SCH (10:21)
[2016-11-13] MEDS: cefTRIAXone 1 GM in Sodium Chloride 0.9% 100 ML IV SCH (10:22)
--- NOTE | 2016-11-13 12:40 | PCM.PN ---
- General Info Date of Service: 11/13/16 Subjective Update: Mild leg edema, does not have EDMOND hose. Walked 2 circuits today with PT. Functional Status: Reports: pain controlled, tolerating diet, ambulating, urinating - Review of Systems General: Reports: No Symptoms HEENT: Reports: no symptoms Pulmonary: Reports: no symptoms Cardiovascular: Reports: No Symptoms Gastrointestinal: Reports: No symptoms Genitourinary: Reports: no symptoms Musculoskeletal: Reports: neck pain (degenerative) Skin: Reports: no symptoms Neurological: Reports: No Symptoms Psychiatric: Reports: no symptoms - Patient Data Vitals - most recent: Last Vital Signs Temp 36.8 C 11/13/16 08:12 Pulse 81 11/13/16 08:12 Resp 20 11/13/16 08:12 BP 132/81 11/13/16 08:12 Pulse Ox 93 L 11/13/16 08:53 Weight - most recent: 69.218 kg I&O - last 24 hours: Intake & Output 11/12/16 11/13/16 11/13/16 22:59 06:59 14:59 Intake Total 1260 600 225 Output Total 1975 1250 Balance -715 -650 225 Lab Results last 24 hrs: Laboratory Results - last 24 hr 11/13/16 11/13/16 Range/Units 06:14 06:14 WBC 6.83 (4.23-9.07) K/mm3 RBC 4.14 L (4.63-6.08) M/mm3 Hgb 12.3 L (13.7-17.5) gm/L Hct 36.2 L (40.1-51.0) % MCV 87.4 (79.0-92.2) fl MCH 29.7 (25.7-32.2) pg MCHC 34.0 (32.2-35.5) g/dl RDW Std Deviation 41.4 (35.1-43.9) fL Plt Count 316 (163-337) K/mm3 MPV 9.1 L (9.4-12.3) fl Neut % (Auto) 46.0 (34.0-67.9) % Lymph % (Auto) 28.6 (21.8-53.1) % Kimball % (Auto) 10.0 (5.3-12.2) % Eos % (Auto) 14.3 H (0.8-7.0) Baso % (Auto) 0.7 (0.1-1.2) % Neut # (Auto) 3.14 (1.78-5.38) K/mm3 Lymph # (Auto) 1.95 (1.32-3.57) K/mm3 Kimball # (Auto) 0.68 (0.30-0.82) K/mm3 Eos # (Auto) 0.98 H (0.04-0.54) K/mm3 Baso # (Auto) 0.05 (0.01-0.08) K/mm3 Sodium 139 (136-145) mEq/L Potassium 3.8 (3.5-5.1) mEq/L Chloride 106 (98-107) mEq/L Carbon Dioxide 28 (21-32) mEq/L Anion Gap 8.8 (5-15) BUN 9 (7-18) mg/dL Creatinine 0.7 (0.7-1.3) mg/dL Est Cr Clr Drug Dosing 87.90 mL/min Estimated GFR (MDRD) > 60 (>60) mL/min BUN/Creatinine Ratio 12.9 L (14-18) Glucose 88 (83-115) mg/dL Calcium 8.2 L (8.5-10.1) mg/dL Magnesium 2.0 (1.8-2.4) mg/dl C-Reactive Protein 3.3 H* (<1.0) mg/dL Cedric Results last 24 hrs: Microbiology 11/11/16 11:40 Gram Stain - Final Sputum - Expectorated Respiratory Culture - Final NORMAL RESPIRATORY ARABELLA 2 DAYS 11/11/16 17:27 Urine Culture - Final Urine, Voided NO GROWTH AFTER 2 DAYS Med Orders - Current: Current Medications Acetaminophen (Tylenol) 650 mg PO Q4H PRN PRN Reason: Pain (Mild 1-3)/fever Last Admin: 11/12/16 18:07 Dose: 650 mg Hydrocodone Bitart/Acetaminophen ([place] 325-5 Mg) 1 tab PO Q4H PRN PRN Reason: Pain (moderate 4-6) Last Admin: 11/12/16 20:27 Dose: 1 tab Albuterol (Proventil Hfa) 0 gm INH Q4H PRN PRN Reason: sob/wheeze Albuterol (Proventil Hfa) 0 gm INH DAILY ARNIE Last Admin: 11/13/16 08:53 Dose: 2 puff Albuterol/Ipratropium (Duoneb 3.0-0.5 Mg/3 Ml) 3 ml NEB Q4H PRN PRN Reason: Shortness Of Breath/wheezing Bisacodyl (Dulcolax) 5 mg PO DAILY PRN PRN Reason: Constipation Last Admin: 11/13/16 10:21 Dose: 5 mg Cholecalciferol (Vitamin D3) 2,000 units PO DAILY [facility] Last Admin: 11/13/16 08:21 Dose: 2,000 units Docusate Sodium (Colace) 100 mg PO BID PRN PRN Reason: Constipation Dronabinol (Marinol) 2.5 mg PO TIDMEALS [facility] Last Admin: 11/13/16 10:21 Dose: 2.5 mg Enoxaparin Sodium (Lovenox) 40 mg SUBCUT DAILY [facility] Last Admin: 11/13/16 08:22 Dose: 40 mg Guaifenesin (Mucinex) 1,200 mg PO BID [facility] Last Admin: 11/13/16 08:21 Dose: 1,200 mg Hydralazine HCl (Apresoline) 20 mg IVPUSH Q4H PRN PRN Reason: Hypertension Azithromycin 500 mg/ Sodium (Chloride) 250 mls @ 250 mls/hr IV Q24H [facility] Last Admin: 11/13/16 10:21 Dose: 250 mls/hr Promethazine HCl 12.5 mg/ (Sodium Chloride) 50.5 mls @ 100 mls/hr IV Q6H PRN PRN Reason: Nausea/Vomiting Ceftriaxone Sodium 1 gm/ (Sodium Chloride) 100 mls @ 200 mls/hr IV Q24H [facility] Last Admin: 11/13/16 10:22 Dose: 200 mls/hr Loratadine (Claritin) 5 mg PO BID [facility] Last Admin: 11/13/16 08:21 Dose: 5 mg Lorazepam (Ativan) 0.5 mg IV Q6H PRN PRN Reason: Anxiety Metoprolol Tartrate (Lopressor) 2.5 mg IVPUSH Q4H PRN PRN Reason: Tachycardia Morphine Sulfate (Morphine) 1 mg IVPUSH Q4H PRN PRN Reason: Other Stop: 11/13/16 16:10 Multivitamins (Thera) 1 each PO DAILY [facility] Last Admin: 11/13/16 08:21 Dose: 1 each Ondansetron HCl (Zofran) 4 mg IV Q6H PRN PRN Reason: Nausea/Vomiting Alendronate 70 Mg 0 each PO He@0500 [facility] Last Admin: 11/12/16 06:47 Dose: Not Given Glucosamine/Chondro (He A [Cosamin Ds]) 0 each PO DAILY [facility] Last Admin: 11/13/16 09:13 Dose: Not Given L-Glutamine 0 each PO DAILY [facility] Last Admin: 11/13/16 09:13 Dose: Not Given Protein Supplement [ (Procel] 1 Pkt)) 0 each PO DAILY [facility] Last Admin: 11/13/16 09:13 Dose: Not Given Ultra Meal Advance (Protein Supplement) 0 each PO BID [facility] Last Admin: 11/13/16 09:13 Dose: Not Given Acetylcysteine [Nac] (600 Mg) 0 each PO DAILY [facility] Last Admin: 11/13/16 09:13 Dose: Not Given Polyethylene Glycol (Miralax) 17 gm PO DAILY PRN PRN Reason: Constipation Potassium Chloride (Potassium Chloride) 40 meq PO BID ARNIE Stop: 11/14/16 09:01 Last Admin: 11/13/16 08:21 Dose: 40 meq Rosuvastatin Calcium (Crestor) 5 mg PO DAILY [facility] Last Admin: 11/13/16 08:21 Dose: 5 mg Fluticasone/Salmeterol (Advair Diskus 500-50) 1 puff INH BEDTIME [facility] Last Admin: 11/12/16 20:32 Dose: 1 puff Senna/Docusate Sodium (Senna Plus) 1 tab PO BID PRN PRN Reason: Constipation Temazepam (Restoril) 30 mg PO BEDTIME PRN PRN Reason: Sleep Theophylline (Theophylline Anhydrous) 400 mg PO DAILY [facility] Last Admin: 11/13/16 08:22 Dose: 400 mg Discontinued Medications Albuterol (Proventil Hfa) 18 gm INH DAILY [facility] Dronabinol (Marinol) 5 mg PO ONETIME ONE Stop: 11/10/16 16:15 Last Admin: 11/10/16 18:53 Dose: 5 mg Enoxaparin Sodium (Lovenox) 30 mg SUBCUT DAILY [facility] Last Admin: 11/11/16 09:20 Dose: 30 mg Furosemide (Lasix) 10 mg IVPUSH NOW ONE Stop: 11/13/16 10:16 Last Admin: 11/13/16 10:45 Dose: 10 mg Lactated Ringer's (Ringers, Lactated) 1,000 mls @ 999 mls/hr IV .BOLUS ONE Stop: 11/10/16 11:57 Last Admin: 11/10/16 11:15 Dose: 999 mls/hr Sodium Chloride (Normal Saline) 1,000 mls @ 150 mls/hr IV ASDIRECTED [facility] Last Admin: 11/10/16 20:12 Dose: 150 mls/hr Piperacillin Sod/Tazobactam (Sod 4.5 gm/ Sodium Chloride) 100 mls @ 200 mls/hr IV ONETIME ONE Stop: 11/10/16 14:07 Last Admin: 11/10/16 13:49 Dose: 200 mls/hr Azithromycin 250 mg/ Sodium (Chloride) 250 mls @ 250 mls/hr IV ONETIME ONE Stop: 11/10/16 17:07 Last Admin: 11/10/16 18:54 Dose: Not Given Ceftriaxone Sodium 1 gm/ (Sodium Chloride) 100 mls @ 200 mls/hr IV Q24H [facility] Last Admin: 11/11/16 12:26 Dose: Not Given Metoprolol Tartrate 2.5 mg/ (Sodium Chloride) 52.5 mls @ 100 mls/hr IV ONETIME ONE Stop: 11/10/16 21:29 Last Admin: 11/10/16 21:07 Dose: 100 mls/hr Sodium Chloride (Normal Saline) 250 mls @ 500 mls/hr IV ASDIRECTED [facility] Sodium Chloride (Normal Saline) 1,000 mls @ 150 mls/hr IV ASDIRECTED [facility] Last Admin: 11/12/16 03:26 Dose: 150 mls/hr Sodium Chloride (Normal Saline) 500 mls @ 999 mls/hr IV .BOLUS ONE Stop: 11/11/16 13:03 Last Admin: 11/11/16 12:35 Dose: 999 mls/hr Magnesium Sulfate (Pharmacy To Dose - Magnesium Replacement) 0 dose .XX ASDIRECTED PRN PRN Reason: RX TO MONITOR MAG LEVELS Methylprednisolone Sodium Succinate (Solu-Medrol) 80 mg IVPUSH ONETIME ONE Stop: 11/10/16 13:33 Last Admin: 11/10/16 13:47 Dose: 80 mg Non-Formulary Medication (Acetylcysteine [Nac]) 600 mg PO DAILY [facility] Non-Formulary Medication (Ultra Meal Advance Protein Supplement) 2 dose PO BID [facility] Last Admin: 11/10/16 20:29 Dose: Not Given Pneumococcal 13-Valent Conj Vacc (Prevnar 13) 0.5 ml IM .ONCE ONE Stop: 11/10/16 18:39 Potassium Chloride (Pharmacy To Dose - Potassium Replacement) 0 dose .XX ASDIRECTED PRN PRN Reason: RX TO MONITOR K LEVELS Fluticasone/Salmeterol (Advair Diskus 500-50) 2 puff INH BEDTIME [facility] Last Admin: 11/10/16 20:16 Dose: 1 puff Temazepam (Restoril) 15 mg PO BEDTIME PRN PRN Reason: Sleep Last Admin: 11/11/16 22:11 Dose: 15 mg - Exam Quality Assessment: supplemental oxygen, DVT prophylaxis General: alert, oriented, cooperative, no acute distress HEENT: Pupils equal, Pupils reactive, EOMI Neck: supple, trachea midline, no JVD Lungs: Normal respiratory effort Cardiovascular: Regular Rate, Regular Rhythm Abdomen: bowel sounds present, soft, no tenderness, no distension (Male) Exam: Deferred Back Exam: Normal Inspection Extremities: edema Skin: warm Neurological: no new focal deficit Psy/Mental Status: alert, normal affect, normal mood - Problem List Review Problem List Initiated/Reviewed/Updated: Yes - My Orders Last 24 Hours: My Active Orders 11/12/16 15:00 Loratadine [Claritin] 5 mg PO BID 11/12/16 21:00 Potassium Chloride 40 meq PO BID 11/13/16 09:21 RESPIRATORY PANEL BY PCR [MREF] Routine 11/13/16 10:08 Antiembolic Devices [RC] 10,22 EDMOND Hose [Antiembolic Hose] [OM.PC] Routine 11/13/16 10:30 STREP PNEUMONIAE ANTIGEN [MREF] Routine 11/13/16 13:00 CXR [Chest 2V] [CR] Routine 11/14/16 05:00 LIPID PANEL [CHEM] Routine - Plan Plan:: Assessment/Plan: Acute: Febrile Illness - Likely 2/2 Bronchitis - No documented Temperature - Afebrile on admission - PRN Tylenol Acute Bronchitis - Risk Factor: Advanced Asthma/COPD - Cough up more than usual: brownish-greenish sputum - Decongestant/Expectorant/FV/IS and Iv Azith/Rocephin - Mycoplasma Ag negative - Viral and Sputum Cx/Sx Eosinophilic Leukocytosis-resolving WBC 11.52 ---> now 7.8 - Has underlying lung Disease - Unlikely parasitic - Also on steroids Hyponatremia - Na 122 --> 134, improving - Hypovolemic - Poor oral intake - Currently receiving IVF - If not response, will start salt tablets Generalized Weakness/Decreased Functional Status-improving - Multi-factorial - Advanced Lung Disease is a significant factor - PT/OT consult - TFT and Vit D level Chronic: HTN HLD PAH PVD ASCVD Advanced COPD/Asthma CLAUDIO on CPAP (does not wear it) BPH OA Chronic Back Pain ETOH Use at night Plan: Priyank, also add EDMOND to LE Routine AM Labs Continue marinol for appetite stimulant Continue PT/OT/RT SW/CM for d/c planning Code status: CPR only LOS>96 hours with slow response to therapy.
--- NOTE | 2016-11-13 13:23 | CR ---
Chest: 2 views of the chest were obtained. Comparison: Previous chest x-ray of 11/12 17. Increased density is seen along both sides of the chest compatible with callus within multiple bilateral rib fractures. Findings are stable from prior exam. Improved atelectasis is noted within both lungs. Lungs otherwise are clear. Heart size is normal. Tortuous thoracic aorta is seen. Previous lumbar spine surgery is noted. Impression: 1. Decreased atelectasis within both lung bases. 2. Other incidental findings as noted above. Diagnostic code #2
[2016-11-13] MEDS: Acetaminophen/HYDROcodone 325-5 MG Tab PO PRN ×2 (16:27→20:44)
[2016-11-13] MEDS: Fluticasone/Salmeterol 500-50 MCG Inhalation Powder 14/Diskus INH SCH (20:26)
[2016-11-14] MEDS: Dronabinol 2.5 MG Cap PO SCH ×2 (06:28→10:32)
[2016-11-14] MEDS: Albuterol 6.7 GM Inhaler INH SCH (08:35)
[2016-11-14 08:42] VITALS: BP 97/50
[2016-11-14] MEDS: Potassium Chloride 10% 20 MEQ/15 ML Soln 30 ML UD Cup PO SCH (08:45)
[2016-11-14] MEDS: Azithromycin 500 MG in Sodium Chloride 0.9% 250 ML IV SCH (08:45)
[2016-11-14] MEDS: Rosuvastatin 10 MG Tab PO SCH (08:46)
[2016-11-14] MEDS: Loratadine 10 MG Tab PO SCH (08:46)
[2016-11-14] MEDS: guaiFENesin 600 MG Tab.ER PO SCH (08:46)
[2016-11-14] MEDS: Multivitamins,Therapeutic Tab PO SCH (08:46)
[2016-11-14] MEDS: Cholecalciferol (Vitamin D3) 1,000 Unit Tab PO SCH (08:46)
[2016-11-14] MEDS: Enoxaparin 40 MG/0.4 ML Syringe SUBCUT SCH (08:47)
[2016-11-14] MEDS: Theophylline 200 MG Tab.ER PO SCH (08:47)
[2016-11-14] MEDS: GLUCOSAMINE PO SCH (09:03)
[2016-11-14] MEDS: CHONDRO SU A PO SCH (09:03)
[2016-11-14] MEDS: GLUTAMINE PO SCH (09:04)
[2016-11-14] MEDS: PROTEIN SUPPLEMENT PO SCH ×2 (09:04)
--- NOTE | 2016-11-14 09:51 | PCM.DCSUM1 ---
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 Associated to his c/o are productive cough with brown-greenish sputum, decreased oral intake, fatigue and weakness. Patient recently seen in ED and was thought to have had a seizure related to hyponatremia with a sodium level of 121. Patient denies any such episode on this admission. His initial work up in ED shows a CBC remarkable for WBC 11.52, Hgb 13.6, Hct 38.6, and Eosinophils 17%. His chemistry is significant for Na 122, Cl 90, CO2 20, AG 15.6, Ca+ 8.1, Total Bili 1.1, Total Protein 5.7, and Albumin 2.4. UA is not impressive for UTI. His CXR report reads no acute seen. Patient is being admitted for Febrile Illness and Acute Bronchitis. He is CPR only. Patient was treated with IV abx, zithromax and Rocephin with good response, RT for aggressive pulmonary toilet. He was hydrated with improvement of symptoms, fevers resolved. Weakness slowly improved, PT/OT worked with him. He is ambulating independently and off of supplemental oxygen on discharge. Electrolyte abnormalities resolved. Appetite was down and minimal, Dr. Fitch started him on Marinol with good results, he will continue this on discharge. He will be discharged home today on zithromax x 5 days, mucinex and usual home medications. He will follow up with PCP, Dr. Cowan within 1 week of discharge. He had complaints of persistent and worsening acute on chronic neck pain. He will have MRI of cervical spine as outpatient with consult/follow up with site identification specialist as outpatient, this will be arranged/appointments prior to discharge home with family today. - Discharge Data Discharge Date: 11/14/16 (admit date 11/10/16) Discharge Disposition: Home, Self-Care 01 Condition: Good - Patient Summary/Data Operative Procedure(s) Performed: None Complications: None Consults: Consultations 11/10/16 16:12 Consult to Case Management [CONS] Routine Consult to Police Clerk [CONS] Routine Consult to Spiritual Care [CONS] Routine OT Evaluation and Treatment [CONS] Routine PT Evaluation and Treatment [CONS] Routine Respiratory Care Assess and Treatment [CONS] Routine Labs Pending at D/C: None Recommended Follow-up Testing/Procedures: Cervical (neck) MRI as outpatient for chronic neck pain: scheduled for 2:30pm today at Radiology as outpatient Results to Dr. Cowan Recommend follow up with back/digital strategy specialist for further evaluation of chronic neck pain Follow up with PCP, Dr. Cowan within 5-7 days of discharge Continue usual home medications; new medications sent to [facility]. Planned Operative Procedure(s) after DC: None Hospital Course: As above - Patient Instructions Diet: Heart Healthy Diet, Drink 8-10+ Glasses/Day Activity: As Tolerated (walk 3 times daily) Showering/Bathing: May Shower Notify Provider of: Fever, Increased Pain, Nausea and/or Vomiting (worsening shortness of breath, coughing, wheezing) - Discharge Plan Prescriptions/Med Rec: Azithromycin [Zithromax] 250 mg PO DAILY #5 tablet Dronabinol [Marinol] 2.5 mg PO TIDMEALS #60 cap Loratadine [Claritin] 5 mg PO BID #60 tablet guaiFENesin [Mucinex] 1,200 mg PO BID #60 tab.er Home Medications: Home Meds Alendronate [Fosamax] 70 mg PO IRVIN 06/06/16 [History] Cholecalciferol (Vitamin D3) [Vitamin D3] 2,000 unit PO DAILY 06/06/16 [History] Fluticasone/Salmeterol [Advair 500-50 Diskus] 2 puff IH BEDTIME 06/06/16 [ History] Glucosamine/Chondro Irvin A [Cosamin DS] 2 tab PO DAILY 06/06/16 [History] Multivitamin [Multivitamins] 1 each PO DAILY 06/06/16 [History] Rosuvastatin [Crestor] 5 mg PO DAILY 06/06/16 [History] Theophylline [Carlito-24] 400 mg PO DAILY 06/06/16 [History] Acetylcysteine [Nac] 600 mg PO DAILY 07/21/16 [History] Albuterol Sulfate [Ventolin Hfa] 18 gm IH DAILY 07/21/16 [History] Glutamine [l-Glutamine] 2 tsp PO DAILY 07/21/16 [History] Magnesium 250 mg PO DAILY 07/21/16 [History] Ultra Meal Advance Protein Supplement 2 dose PO BID 07/21/16 [History] Protein Supplement [Procel] 1 pkt PO DAILY 11/07/16 [History] L.acidoph,Paracasei, B.lactis [Probiotic] 1 each PO DAILY 11/11/16 [History] Azithromycin [Zithromax] 250 mg PO DAILY #5 tablet 11/14/16 [Rx] Dronabinol [Marinol] 2.5 mg PO TIDMEALS #60 cap 11/14/16 [Rx] Loratadine [Claritin] 5 mg PO BID #60 tablet 11/14/16 [Rx] guaiFENesin [Mucinex] 1,200 mg PO BID #60 tab.er 11/14/16 [Rx] Patient Handouts: Fever, Adult, Urinary Tract Infection, Adult, [id number], Acute Bronchitis, [id number] Forms: ED Department Discharge Referrals: Art Fair MD [Ordering Only Provider] - 11/30/16 11:50 am (appointment at [facility] 2nd floor, come 30 minutes early bring insurance cards & ID ) Kareem Cowan MD [Primary Care Provider] - (Please see Dr. Cowan on Sunday at 4:30 PM on 11/17/16.) - Discharge Summary/Plan Comment DC Time >30 min.: Yes (40 min) - General Info Date of Service: 11/14/16 Admission Dx/Problem (Free Text: Acute Bronchitis and Febrile Illness Patient seen this morning. Feeling "much better". Breathing easier, coughing but not productive. Ambulating independently with therapy this am. Slept well. Appetite is better. Is anxious for discharge home today; sister is in town visiting. Functional Status: Reports: pain controlled, tolerating diet, ambulating, urinating. Denies: new symptoms - Review of Systems General: Reports: No Symptoms, Weakness (much improved). Denies: Fever HEENT: Reports: no symptoms Pulmonary: Reports: no symptoms, shortness of breath (chronic but improved from usual baseline), cough (improved from usual baseline coughing). Denies: pleuritic chest pain, hemoptysis, wheezing (resolved) Cardiovascular: Reports: No Symptoms, Dyspnea on Exertion (chronic and improved from usual baseline). Denies: Chest Pain, Palpitations, Edema Gastrointestinal: Reports: No symptoms Genitourinary: Reports: no symptoms Musculoskeletal: Reports: neck pain (acute on chronic) Skin: Reports: no symptoms Neurological: Reports: No Symptoms Psychiatric: Reports: no symptoms - Patient Data Vitals - Most Recent: Last Vital Signs Temp 97.3 F 11/14/16 08:40 Pulse 89 11/14/16 08:41 Resp 16 11/14/16 08:40 BP 97/50 L 11/14/16 08:41 Pulse Ox 91 L 11/14/16 08:41 Weight - Most Recent: 68.583 kg I&O - Last 24 hours: Intake & Output 11/13/16 11/14/16 11/14/16 22:59 06:59 14:59 Intake Total 870 500 Output Total 1524 9885 Balance -655 -1175 Lab Results - Last 24 hrs: Laboratory Results - last 24 hr 11/14/16 11/14/16 11/14/16 Range/Units 05:58 05:58 05:58 WBC 8.73 (4.23-9.07) K/mm3 RBC 4.79 (4.63-6.08) M/mm3 Hgb 13.9 (13.7-17.5) gm/L Hct 41.6 (40.1-51.0) % MCV 86.8 (79.0-92.2) fl MCH 29.0 (25.7-32.2) pg MCHC 33.4 (32.2-35.5) g/dl RDW Std Deviation 41.2 (35.1-43.9) fL Plt Count 353 H (163-337) K/mm3 MPV 9.0 L (9.4-12.3) fl Neut % (Auto) 35.4 (34.0-67.9) % Lymph % (Auto) 23.9 (21.8-53.1) % [place] % (Auto) 7.9 (5.3-12.2) % Eos % (Auto) 31.3 H (0.8-7.0) Baso % (Auto) 1.0 (0.1-1.2) % Neut # (Auto) 3.09 (1.78-5.38) K/mm3 Lymph # (Auto) 2.09 (1.32-3.57) K/mm3 [place] # (Auto) 0.69 (0.30-0.82) K/mm3 Eos # (Auto) 2.73 H (0.04-0.54) K/mm3 Baso # (Auto) 0.09 H (0.01-0.08) K/mm3 Manual Slide Review Abnormal smear Sodium 136 (136-145) mEq/L Potassium 4.3 (3.5-5.1) mEq/L Chloride 101 (98-107) mEq/L Carbon Dioxide 28 (21-32) mEq/L Anion Gap 11.3 (5-15) BUN 9 (7-18) mg/dL Creatinine 0.7 (0.7-1.3) mg/dL Est Cr Clr Drug Dosing 87.09 mL/min Estimated GFR (MDRD) > 60 (>60) mL/min BUN/Creatinine Ratio 12.9 L (14-18) Glucose 88 (83-115) mg/dL Calcium 9.1 (8.5-10.1) mg/dL Magnesium 2.1 (1.8-2.4) mg/dl C-Reactive Protein 2.7 H* (<1.0) mg/dL Triglycerides 102 (<150) mg/dL Cholesterol 139 (<200) mg/dL LDL Cholesterol Direct 82 (<100) mg/dL HDL Cholesterol 40.0 (40-59) mg/dL ANASTACIO Results - Last 24 hrs: Microbiology 11/11/16 11:40 Gram Stain - Final Sputum - Expectorated Respiratory Culture - Final NORMAL RESPIRATORY ARABELLA 2 DAYS 11/11/16 17:27 Urine Culture - Final Urine, Voided NO GROWTH AFTER 2 DAYS Med Orders - Current: Current Medications Acetaminophen (Tylenol) 650 mg PO Q4H PRN PRN Reason: Pain (Mild 1-3)/fever Last Admin: 11/12/16 18:07 Dose: 650 mg Hydrocodone Bitart/Acetaminophen (Hurt 325-5 Mg) 1 tab PO Q4H PRN PRN Reason: Pain (moderate 4-6) Last Admin: 11/13/16 20:44 Dose: 1 tab Albuterol (Proventil Hfa) 0 gm INH Q4H PRN PRN Reason: sob/wheeze Albuterol (Proventil Hfa) 0 gm INH DAILY [facility] Last Admin: 11/14/16 08:35 Dose: 2 puff Albuterol/Ipratropium (Duoneb 3.0-0.5 Mg/3 Ml) 3 ml NEB Q4H PRN PRN Reason: Shortness Of Breath/wheezing Bisacodyl (Dulcolax) 5 mg PO DAILY PRN PRN Reason: Constipation Last Admin: 11/13/16 10:21 Dose: 5 mg Cholecalciferol (Vitamin D3) 2,000 units PO DAILY [facility] Last Admin: 11/14/16 08:46 Dose: 2,000 units Docusate Sodium (Colace) 100 mg PO BID PRN PRN Reason: Constipation Dronabinol (Marinol) 2.5 mg PO TIDMEALS [facility] Last Admin: 11/14/16 06:28 Dose: 2.5 mg Enoxaparin Sodium (Lovenox) 40 mg SUBCUT DAILY [facility] Last Admin: 11/14/16 08:47 Dose: 40 mg Guaifenesin (Mucinex) 1,200 mg PO BID [facility] Last Admin: 11/14/16 08:46 Dose: 1,200 mg Hydralazine HCl (Apresoline) 20 mg IVPUSH Q4H PRN PRN Reason: Hypertension Azithromycin 500 mg/ Sodium (Chloride) 250 mls @ 250 mls/hr IV Q24H [facility] Last Admin: 11/14/16 08:45 Dose: 250 mls/hr Promethazine HCl 12.5 mg/ (Sodium Chloride) 50.5 mls @ 100 mls/hr IV Q6H PRN PRN Reason: Nausea/Vomiting Ceftriaxone Sodium 1 gm/ (Sodium Chloride) 100 mls @ 200 mls/hr IV Q24H [facility] Last Admin: 11/13/16 10:22 Dose: 200 mls/hr Loratadine (Claritin) 5 mg PO BID [facility] Last Admin: 11/14/16 08:46 Dose: 5 mg Lorazepam (Ativan) 0.5 mg IV Q6H PRN PRN Reason: Anxiety Metoprolol Tartrate (Lopressor) 2.5 mg IVPUSH Q4H PRN PRN Reason: Tachycardia Multivitamins (Thera) 1 each PO DAILY [facility] Last Admin: 11/14/16 08:46 Dose: 1 each Ondansetron HCl (Zofran) 4 mg IV Q6H PRN PRN Reason: Nausea/Vomiting Alendronate 70 Mg 0 each PO Irvin@0500 [facility] Last Admin: 11/12/16 06:47 Dose: Not Given Glucosamine/Chondro (Irvin A [Cosamin Ds]) 0 each PO DAILY [facility] Last Admin: 11/14/16 09:03 Dose: Not Given L-Glutamine 0 each PO DAILY [facility] Last Admin: 11/14/16 09:04 Dose: Not Given Protein Supplement [ (Procel] 1 Pkt)) 0 each PO DAILY [facility] Last Admin: 11/14/16 09:04 Dose: Not Given Ultra Meal Advance (Protein Supplement) 0 each PO BID [facility] Last Admin: 11/14/16 09:04 Dose: Not Given Acetylcysteine [Nac] (600 Mg) 0 each PO DAILY [facility] Last Admin: 11/14/16 09:03 Dose: Not Given Polyethylene Glycol (Miralax) 17 gm PO DAILY PRN PRN Reason: Constipation Rosuvastatin Calcium (Crestor) 5 mg PO DAILY [facility] Last Admin: 11/14/16 08:46 Dose: 5 mg Fluticasone/Salmeterol (Advair Diskus 500-50) 1 puff INH BEDTIME [facility] Last Admin: 11/13/16 20:26 Dose: 1 puff Senna/Docusate Sodium (Senna Plus) 1 tab PO BID PRN PRN Reason: Constipation Temazepam (Restoril) 30 mg PO BEDTIME PRN PRN Reason: Sleep Theophylline (Theophylline Anhydrous) 400 mg PO DAILY [facility] Last Admin: 11/14/16 08:47 Dose: 400 mg Discontinued Medications Albuterol (Proventil Hfa) 18 gm INH DAILY [facility] Dronabinol (Marinol) 5 mg PO ONETIME ONE Stop: 11/10/16 16:15 Last Admin: 11/10/16 18:53 Dose: 5 mg Enoxaparin Sodium (Lovenox) 30 mg SUBCUT DAILY [facility] Last Admin: 11/11/16 09:20 Dose: 30 mg Furosemide (Lasix) 10 mg IVPUSH NOW ONE Stop: 11/13/16 10:16 Last Admin: 11/13/16 10:45 Dose: 10 mg Lactated Ringer's (Ringers, Lactated) 1,000 mls @ 999 mls/hr IV .BOLUS ONE Stop: 11/10/16 11:57 Last Admin: 11/10/16 11:15 Dose: 999 mls/hr Sodium Chloride (Normal Saline) 1,000 mls @ 150 mls/hr IV ASDIRECTED [facility] Last Admin: 11/10/16 20:12 Dose: 150 mls/hr Piperacillin Sod/Tazobactam (Sod 4.5 gm/ Sodium Chloride) 100 mls @ 200 mls/hr IV ONETIME ONE Stop: 11/10/16 14:07 Last Admin: 11/10/16 13:49 Dose: 200 mls/hr Azithromycin 250 mg/ Sodium (Chloride) 250 mls @ 250 mls/hr IV ONETIME ONE Stop: 11/10/16 17:07 Last Admin: 11/10/16 18:54 Dose: Not Given Ceftriaxone Sodium 1 gm/ (Sodium Chloride) 100 mls @ 200 mls/hr IV Q24H [facility] Last Admin: 11/11/16 12:26 Dose: Not Given Metoprolol Tartrate 2.5 mg/ (Sodium Chloride) 52.5 mls @ 100 mls/hr IV ONETIME ONE Stop: 11/10/16 21:29 Last Admin: 11/10/16 21:07 Dose: 100 mls/hr Sodium Chloride (Normal Saline) 250 mls @ 500 mls/hr IV ASDIRECTED [facility] Sodium Chloride (Normal Saline) 1,000 mls @ 150 mls/hr IV ASDIRECTED [facility] Last Admin: 11/12/16 03:26 Dose: 150 mls/hr Sodium Chloride (Normal Saline) 500 mls @ 999 mls/hr IV .BOLUS ONE Stop: 11/11/16 13:03 Last Admin: 11/11/16 12:35 Dose: 999 mls/hr Magnesium Sulfate (Pharmacy To Dose - Magnesium Replacement) 0 dose .XX ASDIRECTED PRN PRN Reason: RX TO MONITOR MAG LEVELS Methylprednisolone Sodium Succinate (Solu-Medrol) 80 mg IVPUSH ONETIME ONE Stop: 11/10/16 13:33 Last Admin: 11/10/16 13:47 Dose: 80 mg Morphine Sulfate (Morphine) 1 mg IVPUSH Q4H PRN PRN Reason: Other Stop: 11/13/16 16:10 Non-Formulary Medication (Acetylcysteine [Nac]) 600 mg PO DAILY [facility] Non-Formulary Medication (Ultra Meal Advance Protein Supplement) 2 dose PO BID ARNIE Last Admin: 11/10/16 20:29 Dose: Not Given Pneumococcal 13-Valent Conj Vacc (Prevnar 13) 0.5 ml IM .ONCE ONE Stop: 11/10/16 18:39 Potassium Chloride (Pharmacy To Dose - Potassium Replacement) 0 dose .XX ASDIRECTED PRN PRN Reason: RX TO MONITOR K LEVELS Potassium Chloride (Potassium Chloride) 40 meq PO BID ARNIE Stop: 11/14/16 09:01 Last Admin: 11/14/16 08:45 Dose: 40 meq Fluticasone/Salmeterol (Advair Diskus 500-50) 2 puff INH BEDTIME ARNIE Last Admin: 11/10/16 20:16 Dose: 1 puff Temazepam (Restoril) 15 mg PO BEDTIME PRN PRN Reason: Sleep Last Admin: 11/11/16 22:11 Dose: 15 mg - Exam Quality Assessment: Reports: DVT prophylaxis. Denies: supplemental oxygen General: Reports: alert, oriented, cooperative, no acute distress (pleasant and talkative) HEENT: Reports: Pupils equal, Pupils reactive, EOMI, Mucous membr. moist/pink Neck: Reports: supple Lungs: Reports: Normal respiratory effort, Decreased breath sounds (throughout) . Denies: Rales, Rhonchi, Wheezing Cardiovascular: Reports: Regular Rate, Regular Rhythm, No Murmurs Abdomen: Reports: bowel sounds present, soft, no tenderness, no distension (Male) Exam: Deferred Rectal (Males) Exam: Deferred Back Exam: Reports: Normal Inspection Extremities: Reports: no edema, other (right foot with multiple toe amputations ; venous insufficiency changes to LE bilat; no ulcers or open areas noted) Neurological: Reports: no new focal deficit Psy/Mental Status: Reports: alert, normal affect, normal mood *Q Meaningful Use (DIS) - VTE *Q VTE Criteria *Q: - Stroke *Q Stroke Criteria *Q: - AMI *Q AMI Criteria *Q: <Dolores Chaudhry - Last Filed: 11/15/16 12:02> Discharge Summary - Hospital Course Free Text/Narrative:: Greatly improved will need follow up for URI as well as chronic neck pain. OP MRI is scheduled. - Patient Summary/Data Consults: Consultations 11/10/16 16:12 Consult to Case Management [CONS] Routine Consult to Police Clerk [CONS] Routine Consult to Spiritual Care [CONS] Routine OT Evaluation and Treatment [CONS] Routine PT Evaluation and Treatment [CONS] Routine Respiratory Care Assess and Treatment [CONS] Routine - Patient Data Vitals - Most Recent: Last Vital Signs Temp 36.3 C 11/14/16 08:40 Pulse 89 11/14/16 08:41 Resp 16 11/14/16 08:40 BP 97/50 L 11/14/16 08:41 Pulse Ox 91 L 11/14/16 08:41 Lab Results - Last 24 hrs: Laboratory Results - last 24 hr 11/11/16 Range/Units 05:55 Vitamin D 25-Hydroxy 34 (30-100) ng/mL ANASTACIO Results - Last 24 hrs: Microbiology 11/13/16 16:00 Respiratory Virus Panel (PCR) (ANASTACIO) - Final Nasopharyngeal Swab - Nare, Unspecified Med Orders - Current: Current Medications Discontinued Medications Acetaminophen (Tylenol) 650 mg PO Q4H PRN PRN Reason: Pain (Mild 1-3)/fever Last Admin: 11/12/16 18:07 Dose: 650 mg Hydrocodone Bitart/Acetaminophen (Hurt 325-5 Mg) 1 tab PO Q4H PRN PRN Reason: Pain (moderate 4-6) Last Admin: 11/13/16 20:44 Dose: 1 tab Albuterol (Proventil Hfa) 18 gm INH DAILY [facility] Albuterol (Proventil Hfa) 0 gm INH Q4H PRN PRN Reason: sob/wheeze Albuterol (Proventil Hfa) 0 gm INH DAILY [facility] Last Admin: 11/14/16 08:35 Dose: 2 puff Albuterol/Ipratropium (Duoneb 3.0-0.5 Mg/3 Ml) 3 ml NEB Q4H PRN PRN Reason: Shortness Of Breath/wheezing Bisacodyl (Dulcolax) 5 mg PO DAILY PRN PRN Reason: Constipation Last Admin: 11/13/16 10:21 Dose: 5 mg Cholecalciferol (Vitamin D3) 2,000 units PO DAILY ARNIE Last Admin: 11/14/16 08:46 Dose: 2,000 units Docusate Sodium (Colace) 100 mg PO BID PRN PRN Reason: Constipation Dronabinol (Marinol) 2.5 mg PO TIDMEALS [facility] Last Admin: 11/14/16 10:32 Dose: 2.5 mg Dronabinol (Marinol) 5 mg PO ONETIME ONE Stop: 11/10/16 16:15 Last Admin: 11/10/16 18:53 Dose: 5 mg Enoxaparin Sodium (Lovenox) 30 mg SUBCUT DAILY [facility] Last Admin: 11/11/16 09:20 Dose: 30 mg Enoxaparin Sodium (Lovenox) 40 mg SUBCUT DAILY [facility] Last Admin: 11/14/16 08:47 Dose: 40 mg Furosemide (Lasix) 10 mg IVPUSH NOW ONE Stop: 11/13/16 10:16 Last Admin: 11/13/16 10:45 Dose: 10 mg Guaifenesin (Mucinex) 1,200 mg PO BID [facility] Last Admin: 11/14/16 08:46 Dose: 1,200 mg Hydralazine HCl (Apresoline) 20 mg IVPUSH Q4H PRN PRN Reason: Hypertension Lactated Ringer's (Ringers, Lactated) 1,000 mls @ 999 mls/hr IV .BOLUS ONE Stop: 11/10/16 11:57 Last Admin: 11/10/16 11:15 Dose: 999 mls/hr Sodium Chloride (Normal Saline) 1,000 mls @ 150 mls/hr IV ASDIRECTED [facility] Last Admin: 11/10/16 20:12 Dose: 150 mls/hr Piperacillin Sod/Tazobactam (Sod 4.5 gm/ Sodium Chloride) 100 mls @ 200 mls/hr IV ONETIME ONE Stop: 11/10/16 14:07 Last Admin: 11/10/16 13:49 Dose: 200 mls/hr Azithromycin 500 mg/ Sodium (Chloride) 250 mls @ 250 mls/hr IV Q24H [facility] Last Admin: 11/14/16 08:45 Dose: 250 mls/hr Azithromycin 250 mg/ Sodium (Chloride) 250 mls @ 250 mls/hr IV ONETIME ONE Stop: 11/10/16 17:07 Last Admin: 11/10/16 18:54 Dose: Not Given Promethazine HCl 12.5 mg/ (Sodium Chloride) 50.5 mls @ 100 mls/hr IV Q6H PRN PRN Reason: Nausea/Vomiting Ceftriaxone Sodium 1 gm/ (Sodium Chloride) 100 mls @ 200 mls/hr IV Q24H [facility] Last Admin: 11/11/16 12:26 Dose: Not Given Metoprolol Tartrate 2.5 mg/ (Sodium Chloride) 52.5 mls @ 100 mls/hr IV ONETIME ONE Stop: 11/10/16 21:29 Last Admin: 11/10/16 21:07 Dose: 100 mls/hr Sodium Chloride (Normal Saline) 250 mls @ 500 mls/hr IV ASDIRECTED ARNIE Sodium Chloride (Normal Saline) 1,000 mls @ 150 mls/hr IV ASDIRECTED [facility] Last Admin: 11/12/16 03:26 Dose: 150 mls/hr Ceftriaxone Sodium 1 gm/ (Sodium Chloride) 100 mls @ 200 mls/hr IV Q24H [facility] Last Admin: 11/14/16 09:59 Dose: 200 mls/hr Sodium Chloride (Normal Saline) 500 mls @ 999 mls/hr IV .BOLUS ONE Stop: 11/11/16 13:03 Last Admin: 11/11/16 12:35 Dose: 999 mls/hr Loratadine (Claritin) 5 mg PO BID [facility] Last Admin: 11/14/16 08:46 Dose: 5 mg Lorazepam (Ativan) 0.5 mg IV Q6H PRN PRN Reason: Anxiety Magnesium Sulfate (Pharmacy To Dose - Magnesium Replacement) 0 dose .XX ASDIRECTED PRN PRN Reason: RX TO MONITOR MAG LEVELS Methylprednisolone Sodium Succinate (Solu-Medrol) 80 mg IVPUSH ONETIME ONE Stop: 11/10/16 13:33 Last Admin: 11/10/16 13:47 Dose: 80 mg Metoprolol Tartrate (Lopressor) 2.5 mg IVPUSH Q4H PRN PRN Reason: Tachycardia Morphine Sulfate (Morphine) 1 mg IVPUSH Q4H PRN PRN Reason: Other Stop: 11/13/16 16:10 Multivitamins (Thera) 1 each PO DAILY [facility] Last Admin: 11/14/16 08:46 Dose: 1 each Non-Formulary Medication (Acetylcysteine [Nac]) 600 mg PO DAILY [facility] Non-Formulary Medication (Ultra Meal Advance Protein Supplement) 2 dose PO BID [facility] Last Admin: 11/10/16 20:29 Dose: Not Given Ondansetron HCl (Zofran) 4 mg IV Q6H PRN PRN Reason: Nausea/Vomiting Alendronate 70 Mg 0 each PO Irvin@0500 [facility] Last Admin: 11/12/16 06:47 Dose: Not Given Glucosamine/Chondro (Irvin A [Cosamin Ds]) 0 each PO DAILY [facility] Last Admin: 11/14/16 09:03 Dose: Not Given L-Glutamine 0 each PO DAILY [facility] Last Admin: 11/14/16 09:04 Dose: Not Given Protein Supplement [ (Procel] 1 Pkt)) 0 each PO DAILY [facility] Last Admin: 11/14/16 09:04 Dose: Not Given Ultra Meal Advance (Protein Supplement) 0 each PO BID [facility] Last Admin: 11/14/16 09:04 Dose: Not Given Acetylcysteine [Nac] (600 Mg) 0 each PO DAILY [facility] Last Admin: 11/14/16 09:03 Dose: Not Given Pneumococcal 13-Valent Conj Vacc (Prevnar 13) 0.5 ml IM .ONCE ONE Stop: 11/10/16 18:39 Last Admin: 11/14/16 10:30 Dose: 0.5 ml Polyethylene Glycol (Miralax) 17 gm PO DAILY PRN PRN Reason: Constipation Potassium Chloride (Pharmacy To Dose - Potassium Replacement) 0 dose .XX ASDIRECTED PRN PRN Reason: RX TO MONITOR K LEVELS Potassium Chloride (Potassium Chloride) 40 meq PO BID [facility] Stop: 11/14/16 09:01 Last Admin: 11/14/16 08:45 Dose: 40 meq Rosuvastatin Calcium (Crestor) 5 mg PO DAILY [facility] Last Admin: 11/14/16 08:46 Dose: 5 mg Fluticasone/Salmeterol (Advair Diskus 500-50) 2 puff INH BEDTIME [facility] Last Admin: 11/10/16 20:16 Dose: 1 puff Fluticasone/Salmeterol (Advair Diskus 500-50) 1 puff INH BEDTIME [facility] Last Admin: 11/13/16 20:26 Dose: 1 puff Senna/Docusate Sodium (Senna Plus) 1 tab PO BID PRN PRN Reason: Constipation Temazepam (Restoril) 15 mg PO BEDTIME PRN PRN Reason: Sleep Last Admin: 11/11/16 22:11 Dose: 15 mg Temazepam (Restoril) 30 mg PO BEDTIME PRN PRN Reason: Sleep Theophylline (Theophylline Anhydrous) 400 mg PO DAILY ARNIE Last Admin: 11/14/16 08:47 Dose: 400 mg *Q Meaningful Use (DIS) - VTE *Q VTE Criteria *Q: - Stroke *Q Stroke Criteria *Q: - AMI *Q AMI Criteria *Q:
[2016-11-14] MEDS: cefTRIAXone 1 GM in Sodium Chloride 0.9% 100 ML IV SCH (09:59)
== END 2016-11-14 14:10 | disposition home or self-care (01) | DRG 202 ==
LOC: JD.ED 10:28 → JD.MS 13:40 → UNDOADMIN 15:33 → JD.MS 15:33 → UNDODISIN 11-14 14:10
PROVIDERS: ADMIT Internal Medicine; ATTEND Internal Medicine
DX: J40 Bronchitis, not specified as acute or chronic (principal); N39.0 Urinary tract infection, site not specified; L03.031 Cellulitis of right toe; J20.9 Acute bronchitis, unspecified; E87.1 Hypo-osmolality and hyponatremia; R50.9 Fever, unspecified; D72.1 Eosinophilia; E86.0 Dehydration; R53.1 Weakness; I25.10 Atherosclerotic heart disease of native coronary artery without angina pectoris; J45.909 Unspecified asthma, uncomplicated; I10 Essential (primary) hypertension; E78.5 Hyperlipidemia, unspecified; I73.9 Peripheral vascular disease, unspecified; Z79.899 Other long term (current) drug therapy; J44.9 Chronic obstructive pulmonary disease, unspecified; G47.33 Obstructive sleep apnea (adult) (pediatric); N40.0 Benign prostatic hyperplasia without lower urinary tract symptoms; M19.90 Unspecified osteoarthritis, unspecified site; G89.29 Other chronic pain; M45.9 Ankylosing spondylitis of unspecified sites in spine; Z72.89 Other problems related to lifestyle; I27.2 Other secondary pulmonary hypertension; Z23 Encounter for immunization
CPT/HCPCS: 36415; 71010; 73590 ×2; 80053; 80198; 81001; 83605; 83690; 85025; 85610; 85730; 86738; 87040 ×2; 87086; 93005; 96361; 96365; 96375; 99285; J2543; J2930; J7030; J7040; J7120; 71020; 71020-26; 80048; 80061; 82306; 83735; 84439; 84443; 86140; 87070; 87205; 87486; 87581; 87633; 87798; 87899; 90670; 94640; 94664; 94667; 94668; 94760; 94761; 97110-GP; 97116-GP; 97162-GP; 97165-GO; 99284; A9270-GY; G0009; J0456; J0696; J1650; J3490; J7050; Q0167

== ENCOUNTER 2016-11-17 18:57 | Inpatient (IN) | payer MEDICARE, OTHER ==
[2016-11-17] MEDS ORDERED: Sodium Chloride 0.9% 500 ML IV ONE (19:46)
--- NOTE | 2016-11-17 20:59 | EDM.PDOC ---
ED HPI GENERAL MEDICAL PROBLEM - General Chief Complaint: Abdominal Pain Stated Complaint: ABDOMINAL PAIN Time Seen by Provider: 11/17/16 19:30 Source of Information: Reports: Patient, Family History Limitations: Reports: No Limitations - History of Present Illness INITIAL COMMENTS - FREE TEXT/NARRATIVE: This is a 76-year-old male. He was discharged from our facility on November 14 with a discharge diagnosis of acute bronchitis febrile illness and urinary tract infection. As noted to have a sodium of 122 on admission and a chloride of 90 and a C02 22. He went to see his family doctor today and repeat labs today as an outpatient stroke a sodium of 124 potassium of 3.9 chloride is 90 and CO2 is 24 does have a white count of 15.3 no left shift is noted. Since he has been home the family states is not really eating much and not much. When he got to the ER he had a blood pressure of 87/54. He feels rather weak and tired. His family physician believes he has adrenal insufficiency and that is why they sent him back to the ER. He does have a large medical history including high blood pressure asthma COPD obstructive sleep apnea on CPAP chronic back pain chronic neck pain, pulmonary arterial hypertension, peripheral vascular disease and atherosclerotic vascular disease. He is not complaining of chest pain at this time denies any shortness of breath presently. He says his cough is somewhat gone now from when he was in the hospital. He just feels very weak and tired. He has anorexia maybe some mild nausea no vomiting he has had weight loss weakness and fatigue. - Related Data Allergies Allergy/AdvReac Type Severity Reaction Status Date / Time pollen extracts Allergy Itching Verified 11/17/16 19:19 Home Meds: Home Meds Alendronate [Fosamax] 70 mg PO HE 06/06/16 [History] Cholecalciferol (Vitamin D3) [Vitamin D3] 2,000 unit PO DAILY 06/06/16 [History] Fluticasone/Salmeterol [Advair 500-50 Diskus] 2 puff IH BEDTIME 06/06/16 [ History] Glucosamine/Chondro He A [Cosamin DS] 2 tab PO DAILY 06/06/16 [History] Multivitamin [Multivitamins] 1 each PO DAILY 06/06/16 [History] Rosuvastatin [Crestor] 5 mg PO DAILY 06/06/16 [History] Theophylline [Carlito-24] 400 mg PO DAILY 06/06/16 [History] Acetylcysteine [Nac] 600 mg PO DAILY 07/21/16 [History] Albuterol Sulfate [Ventolin Hfa] 18 gm IH DAILY 07/21/16 [History] Glutamine [l-Glutamine] 2 tsp PO DAILY 07/21/16 [History] Magnesium 250 mg PO DAILY 07/21/16 [History] Ultra Meal Advance Protein Supplement 2 dose PO BID 07/21/16 [History] Protein Supplement [Procel] 1 pkt PO DAILY 11/07/16 [History] L.acidoph,Paracasei, B.lactis [Probiotic] 1 each PO DAILY 11/11/16 [History] Azithromycin [Zithromax] 250 mg PO DAILY #5 tablet 11/14/16 [Rx] Dronabinol [Marinol] 2.5 mg PO TIDMEALS #60 cap 11/14/16 [Rx] Loratadine [Claritin] 5 mg PO BID #60 tablet 11/14/16 [Rx] guaiFENesin [Mucinex] 1,200 mg PO BID #60 tab.er 11/14/16 [Rx] Past Medical History HEENT History: Reports: Impaired Vision Other HEENT History: wears reading glasses Cardiovascular History: Reports: High Cholesterol, PVD, SOB on Exertion Other Cardiovascular History: ASCVD Respiratory History: Reports: Asthma, COPD, Sleep Apnea Other Respiratory History: pt does not wear his CPAP as prescibed Gastrointestinal History: Reports: None Genitourinary History: Reports: BPH Musculoskeletal History: Reports: Arthritis, Back Pain, Chronic, Osteoarthritis Neurological History: Reports: Head Trauma, Other (See Below) Other Neuro History: fell in May 2016 and hit head Psychiatric History: Reports: Addiction, Other (See Below) Other Psychiatric History: nighty ETOH drinks Immunologic History: Reports: Immunosuppression, Other (See Below) Other Immunologic History: from [facility] Oncologic (Cancer) History: Reports: Other (See Below) Other Oncologic History: melamona spots removed from head Dermatologic History: Reports: Other (See Below) Other Dermatologic History: very thin skin secondary to theophylline - Infectious Disease History Infectious Disease History: Reports: Chicken Pox, Measles - Past Surgical History HEENT Surgical History: Reports: Tonsillectomy, Other (See Below) Other HEENT Surgeries/Procedures: nose surgery Cardiovascular Surgical History: Reports: Vascular Surgery Respiratory Surgical History: Reports: None GI Surgical History: Reports: Colonoscopy Male Surgical History: Reports: None Musculoskeletal Surgical History: Reports: Other (See Below) Other Musculoskeletal Surgeries/Procedures:: recent surgery/removal of part of great toe on right foot; second and third toe amputated years ago; fractured ribs in May 2016 from falling; neck pain Social & Family History - Family History Family Medical History: Noncontributory - Tobacco Use Smoking Status *Q: Never Smoker Years of Tobacco use: 5 Packs/Tins Daily: 0.5 Used Tobacco, but Quit: Yes Month Tobacco Last Used: quit in the s Second Hand Smoke Exposure: No - Caffeine Use Caffeine Use: Reports: None Other Caffeine Use: half-caf coffee - Alcohol Use Days Per Week of Alcohol Use: 7 Number of Drinks Per Day: 1 Total Drinks Per Week: 7 - Recreational Drug Use Recreational Drug Use: No - Living Situation & Occupation Living situation: Reports: Occupation: Retired ED ROS GENERAL - Review of Systems Review Of Systems: See Below Constitutional: Reports: Fever, Weakness, Fatigue Respiratory: Reports: Shortness of Breath, Wheezing, Cough Cardiovascular: Reports: Dyspnea on Exertion, Lightheadedness. Denies: Chest Pain Endocrine: Reports: Other (Possible adrenal insufficiency) GI/Abdominal: Reports: Abdominal Pain, Anorexia, Nausea. Denies: Vomiting : Reports: Other (He has been urinating at home) Musculoskeletal: Reports: Neck Pain, Other (He has osteoarthritis so he has multiple joint pains) Skin: Reports: Other (Skin is very thin appears to be hyper pigmented) Neurological: Reports: Other (Patient is alert and oriented) Psychiatric: Reports: No Symptoms Hematologic/Lymphatic: Reports: Easy Bruising ED EXAM, GI/ABD - Physical Exam Exam: See Below Exam Limited By: No Limitations General Appearance: Alert, WD/WN, No Apparent Distress, Other (Patient appeared to be very thin) Eyes: Bilateral: Normal Appearance Ears: Normal External Exam, Normal Canal Nose: Normal Inspection, Normal Mucosa Throat/Mouth: Normal Inspection, Normal Lips, Normal Voice, Other (Tacky mucous membranes) Head: Atraumatic Neck: Supple, Other (He has chronic pain in the back of his neck noted on palpation) Respiratory/Chest: No Respiratory Distress, Wheezing, Other (Mode have decreased breath sounds in the right lung but he does have expiratory wheezing noted in the left lung base) Cardiovascular: Regular Rate, Rhythm, No Murmur GI/Abdominal: Soft, Other (He has generalized soreness on palpation of his abdomen, his skin turgor is very poor) Extremities: Normal Range of Motion, Other (Skin turgor is noted to be very poor he appears to have hyperpigmentation of every area of skin that he's got) Neurological: Alert, Oriented, Normal Cognition Psychiatric: Normal Affect, Normal Mood Skin Exam: Dry Course - Vital Signs Last Recorded V/S: Last Vital Signs Temp 99.1 F 11/17/16 19:15 Pulse 86 11/17/16 19:15 Resp 20 11/17/16 19:15 BP 153/93 H 11/17/16 19:15 Pulse Ox 93 L 11/17/16 19:15 - Orders/Labs/Meds Labs: Laboratory Tests 11/17/16 11/17/16 Range/Units 19:40 19:40 WBC 13.23 H (4.23-9.07) K/mm3 RBC 4.51 L (4.63-6.08) M/mm3 Hgb 13.3 L (13.7-17.5) gm/L Hct 38.1 L (40.1-51.0) % MCV 84.5 (79.0-92.2) fl MCH 29.5 (25.7-32.2) pg MCHC 34.9 (32.2-35.5) g/dl RDW Std Deviation 38.9 (35.1-43.9) fL Plt Count 386 H (163-337) K/mm3 MPV 9.2 L (9.4-12.3) fl Neut % (Auto) 38.9 (34.0-67.9) % Lymph % (Auto) 18.1 L (21.8-53.1) % [place] % (Auto) 15.0 H (5.3-12.2) % Eos % (Auto) 26.2 H (0.8-7.0) Baso % (Auto) 0.6 (0.1-1.2) % Neut # (Auto) 5.16 (1.78-5.38) K/mm3 Lymph # (Auto) 2.39 (1.32-3.57) K/mm3 [place] # (Auto) 1.98 H (0.30-0.82) K/mm3 Eos # (Auto) 3.46 H (0.04-0.54) K/mm3 Baso # (Auto) 0.08 (0.01-0.08) K/mm3 Manual Slide Review Abnormal smear Sodium 122 L (136-145) mEq/L Potassium 4.2 (3.5-5.1) mEq/L Chloride 89 L (98-107) mEq/L Carbon Dioxide 22 (21-32) mEq/L Anion Gap 15.2 H (5-15) BUN 15 (7-18) mg/dL Creatinine 0.8 (0.7-1.3) mg/dL Est Cr Clr Drug Dosing 72.07 mL/min Estimated GFR (MDRD) > 60 (>60) mL/min BUN/Creatinine Ratio 18.8 H (14-18) Glucose 108 (83-115) mg/dL Serum Osmolality 255 L (280-300) mosm/kg Calcium 8.8 (8.5-10.1) mg/dL Total Bilirubin 0.8 (0.2-1.0) mg/dL AST 22 (15-37) U/L ALT 24 (16-63) U/L Alkaline Phosphatase 76 (46-116) U/L Total Protein 6.2 L (6.4-8.2) g/dl Albumin 2.9 L (3.4-5.0) g/dl Globulin 3.3 gm/dL Albumin/Globulin Ratio 0.9 L (1-2) Meds: Medications Discontinued Medications Generic Name Dose Route Start Last Admin Trade Name Freq PRN Reason Stop Dose Admin Sodium Chloride 500 mls @ 999 mls/hr 11/17/16 19:46 11/17/16 19:51 Normal Saline IV 11/17/16 20:16 999 mls/hr .BOLUS ONE Administration - Re-Assessments/Exams Free Text/Narrative Re-Assessment/Exam: 11/17/16 23:22 I spoke to the patient and his significant other regarding the test results and his need for admission. Departure - Departure Time of Disposition: 23:22 Disposition: Admitted As Inpatient 66 Condition: fair Clinical Impression: Hyponatremia, Hypo-osmolality and hyponatremia, Dehydration - Discharge Information Additional Instructions: I spoke with Dr. Chaudhry regarding the patient and she will admit the patient for further evaluation and treatment ED Communication - ED Communication Date/Time Date: 11/17/16 Time Called: 23:00 - Discussed Case With (1) Discussed Case With (1): Admitting Provider Person/s Notified (1): Dolores Chaudhry (She will admit the patient)
[2016-11-18] MEDS ORDERED: Sodium Chloride 0.9% 1,000 ML IV SCH (01:00)
[2016-11-18] MEDS: Sodium Chloride 0.9% 1,000 ML IV SCH ×3 (07:07→23:50)
--- NOTE | 2016-11-18 09:07 | PCM.HP ---
H&P History of Present Illness - General Date of Service: 11/18/16 Admit Problem/Dx: Admission Diagnosis/Problem Admission Diagnosis/Problem Hyponatremia Source of Information: Patient, Family, Provider History Limitations: Reports: No Limitations - History of Present Illness Initial Comments - Free Text/Narative: 76 year old male recently treated for acute bronchitis also had hyponatremia druing that admission. At the time of discharge, November 14, Na 136/K 4.3 cf November 17, Na 122/K 4.2. Reportedly the patient in the remote past, had a history of adrenal insufficiency. This is a new consideration by his PCP who saw him in his office on the day of admission. The patient reports generalized weakness, loss of appetite; he has loss weight , has had abdominal pain as well as a change in GI habits. The patient was discharged on Zithromax on November 14, 2016. Onset of Symptoms: Reports: Gradual Duration of Symptoms: Reports: Day(s):, Getting Worse Location: Reports: Generalized Quality: Reports: Same as Previous Episode Severity: Moderate Improves with: Reports: Medication Worsens with: Reports: None Associated Symptoms: Reports: Loss of Appetite, Malaise, Nausea/Vomiting, Weakness - Related Data Allergies/Adverse Reactions: Allergies Allergy/AdvReac Type Severity Reaction Status Date / Time pollen extracts Allergy Itching Verified 11/17/16 19:19 Home Medications: Home Meds Alendronate [Fosamax] 70 mg PO HE 06/06/16 [History] Cholecalciferol (Vitamin D3) [Vitamin D3] 2,000 unit PO DAILY 06/06/16 [History] Fluticasone/Salmeterol [Advair 500-50 Diskus] 2 puff IH BEDTIME 06/06/16 [ History] Glucosamine/Chondro He A [Cosamin DS] 2 tab PO DAILY 06/06/16 [History] Multivitamin [Multivitamins] 1 each PO DAILY 06/06/16 [History] Rosuvastatin [Crestor] 5 mg PO DAILY 06/06/16 [History] Theophylline [Carlito-24] 400 mg PO DAILY 06/06/16 [History] Acetylcysteine [Nac] 600 mg PO DAILY 07/21/16 [History] Albuterol Sulfate [Ventolin Hfa] 18 gm IH DAILY 07/21/16 [History] Glutamine [l-Glutamine] 2 tsp PO DAILY 07/21/16 [History] Magnesium 250 mg PO DAILY 07/21/16 [History] Ultra Meal Advance Protein Supplement 2 dose PO BID 07/21/16 [History] Protein Supplement [Procel] 1 pkt PO DAILY 11/07/16 [History] L.acidoph,Paracasei, B.lactis [Probiotic] 1 each PO DAILY 11/11/16 [History] Azithromycin [Zithromax] 250 mg PO DAILY #5 tablet 11/14/16 [Rx] Dronabinol [Marinol] 2.5 mg PO TIDMEALS #60 cap 11/14/16 [Rx] Loratadine [Claritin] 5 mg PO BID #60 tablet 11/14/16 [Rx] guaiFENesin [Mucinex] 1,200 mg PO BID #60 tab.er 11/14/16 [Rx] Past Medical History HEENT History: Reports: Impaired Vision Other HEENT History: wears reading glasses Cardiovascular History: Reports: High Cholesterol, PVD, SOB on Exertion Other Cardiovascular History: ASCVD Respiratory History: Reports: Asthma, COPD, Sleep Apnea Other Respiratory History: pt does not wear his CPAP as prescibed Gastrointestinal History: Reports: None Genitourinary History: Reports: BPH Musculoskeletal History: Reports: Arthritis, Back Pain, Chronic, Osteoarthritis Neurological History: Reports: Head Trauma, Other (See Below) Other Neuro History: fell in May 2016 and hit head Psychiatric History: Reports: Addiction, Other (See Below) Other Psychiatric History: nighty ETOH drinks Immunologic History: Reports: Immunosuppression, Other (See Below) Other Immunologic History: from [facility]. Oncologic (Cancer) History: Reports: Other (See Below) Other Oncologic History: melamona spots removed from head Dermatologic History: Reports: Other (See Below) Other Dermatologic History: very thin skin secondary to theophylline - Infectious Disease History Infectious Disease History: Reports: Chicken Pox, Measles - Past Surgical History HEENT Surgical History: Reports: Tonsillectomy, Other (See Below) Other HEENT Surgeries/Procedures: nose surgery Cardiovascular Surgical History: Reports: Vascular Surgery Respiratory Surgical History: Reports: None GI Surgical History: Reports: Colonoscopy Male Surgical History: Reports: None Endocrine Surgical History: Reports: None Neurological Surgical History: Reports: None Musculoskeletal Surgical History: Reports: Other (See Below) Other Musculoskeletal Surgeries/Procedures:: recent surgery/removal of part of great toe on right foot; second and third toe amputated years ago; fractured ribs in May 2016 from falling; neck pain Oncologic Surgical History: Reports: None Dermatological Surgical History: Reports: None Social & Family History - Family History Family Medical History: Noncontributory HEENT: Reports: None Cardiac: Reports: None Respiratory: Reports: None : Reports: None OBGYN: Reports: None Musculoskeletal: Reports: None Neurological: Reports: None Psychiatric: Reports: None - Tobacco Use Smoking Status *Q: Former Smoker Years of Tobacco use: 5 Packs/Tins Daily: 0.5 Used Tobacco, but Quit: No Month Tobacco Last Used: quit in the s Tobacco Use Comment: pt states he smoked a little bit for awhile...vague wouldn' t just come out with an answer Second Hand Smoke Exposure: No - Caffeine Use Caffeine Use: Reports: None Other Caffeine Use: half-caf coffee - Alcohol Use Days Per Week of Alcohol Use: 1 Number of Drinks Per Day: 7 Total Drinks Per Week: 7 - Recreational Drug Use Recreational Drug Use: No - Living Situation & Occupation Living situation: Reports: Occupation: Retired H&P Review of Systems - Review of Systems: Review Of Systems: See Below General: Reports: Malaise, Weakness, Fatigue, Decreased Appetite, Weight Loss HEENT: Reports: No Symptoms Pulmonary: Reports: No Symptoms Cardiovascular: Reports: Palpitations, Lightheadedness Gastrointestinal: Reports: Anorexia, Nausea, Vomiting Genitourinary: Reports: No Symptoms Musculoskeletal: Reports: No Symptoms Skin: Reports: No Symptoms Psychiatric: Reports: No Symptoms Neurological: Reports: Dizziness, Weakness Hematologic/Lymphatic: Reports: No Symptoms Immunologic: Reports: No Symptoms Exam - Exam Exam: See Below - Vital Signs Vital Signs: Last Vital Signs Temp 36.4 C 11/17/16 23:49 Pulse 82 11/17/16 23:49 Resp 16 11/17/16 23:49 BP 109/59 L 11/17/16 23:49 Pulse Ox 90 L 11/17/16 23:49 Weight: 65.227 kg - Exam Quality Assessment: Supplemental Oxygen, DVT Prophylaxis General: Alert, Oriented, Cooperative HEENT: Conjunctiva Clear, EOMI, Nares Patent, Normal Nasal Septum, Pupils Equal , Pupils Reactive, TMs Clear Neck: Supple, Trachea Midline Lungs: Normal Respiratory Effort, Decreased Breath Sounds Cardiovascular: Regular Rate, Regular Rhythm Abdomen: Normal Bowel Sounds, Soft (Male) Exam: Deferred Rectal (Males) Exam: Deferred Back Exam: Normal Inspection Extremities: Normal Pulses Skin: Other (poor t) Neurological: Cranial Nerves Intact, Strength Equal Bilateral, Normal Speech Neuro Extensive - Mental Status: Alert, Oriented x3, Normal Mood/Affect Neuro Extensive - Motor, Sensory, Reflexes: CN II-XII Intact Psychiatric: Alert, Normal Affect, Normal Mood - Patient Data Lab Results last 24 hrs: Laboratory Results - last 24 hr 11/18/16 11/18/16 Range/Units 05:47 05:47 WBC 10.66 H (4.23-9.07) K/mm3 RBC 4.26 L (4.63-6.08) M/mm3 Hgb 12.6 L (13.7-17.5) gm/L Hct 36.2 L (40.1-51.0) % MCV 85.0 (79.0-92.2) fl MCH 29.6 (25.7-32.2) pg MCHC 34.8 (32.2-35.5) g/dl RDW Std Deviation 38.8 (35.1-43.9) fL Plt Count 329 (163-337) K/mm3 MPV 8.9 L (9.4-12.3) fl Neut % (Auto) 34.4 (34.0-67.9) % Lymph % (Auto) 18.9 L (21.8-53.1) % [place] % (Auto) 14.9 H (5.3-12.2) % Eos % (Auto) 29.5 H (0.8-7.0) Baso % (Auto) 0.6 (0.1-1.2) % Neut # (Auto) 3.67 (1.78-5.38) K/mm3 Lymph # (Auto) 2.02 (1.32-3.57) K/mm3 [place] # (Auto) 1.59 H (0.30-0.82) K/mm3 Eos # (Auto) 3.14 H (0.04-0.54) K/mm3 Baso # (Auto) 0.06 (0.01-0.08) K/mm3 Manual Slide Review Abnormal smear Sodium 125 L (136-145) mEq/L Potassium 3.7 (3.5-5.1) mEq/L Chloride 94 L (98-107) mEq/L Carbon Dioxide 20 L (21-32) mEq/L Anion Gap 14.7 (5-15) BUN 10 (7-18) mg/dL Creatinine 0.7 (0.7-1.3) mg/dL Est Cr Clr Drug Dosing 82.83 mL/min Estimated GFR (MDRD) > 60 (>60) mL/min BUN/Creatinine Ratio 14.3 (14-18) Glucose 81 L (83-115) mg/dL Calcium 7.8 L (8.5-10.1) mg/dL Result Diagrams: 11/18/16 05:47 11/18/16 05:47 *Q Meaningful Use (ADM) - VTE *Q VTE Criteria *Q: - Stroke *Q Stroke Criteria *Q: - AMI *Q AMI Criteria *Q: - Problem List (1) Dehydration SNOMED Code(s): 33479283 ICD Code: E86.0 - DEHYDRATION Status: Acute Current Visit: Yes (2) Hypo-osmolality and hyponatremia SNOMED Code(s): 690547422 ICD Code: E87.1 - HYPO-OSMOLALITY AND HYPONATREMIA Status: Acute Current Visit: Yes (3) Bronchitis SNOMED Code(s): 78521652 ICD Code: J40 - BRONCHITIS, NOT SPECIFIED ACUTE OR CHRONIC Status: Acute Current Visit: No Problem List Initiated/Reviewed/Updated: Yes Orders Last 24hrs: Active Orders 24 hr Category Date Time Status Activity as Tolerated [RC] .Routine Care 11/18/16 00:56 Active Oxygen Therapy Adult [Oxygen Therapy] [RC] ASDIRECTED Care 11/18/16 01:02 Active Renal Non-Dialysis Diet [DIET] Diet 11/18/16 Breakfast Active CORTISOL [REF] Routine Lab 11/18/16 05:47 Received Sodium Chloride 0.9% [Normal Saline] 1,000 ml Med 11/18/16 03:45 Active IV ASDIRECTED Code Status [Resuscitation Status] Routine Resus Stat 11/18/16 00:52 Ordered Medication Orders Sodium Chloride (Normal Saline) 1,000 mls @ 250 mls/hr IV ASDIRECTED ARNIE Last Admin: 11/18/16 07:07 Dose: 250 mls/hr Assessment/Plan Comment:: Impression: Recent Bronchitis, history of COPD; s/p ATBs Recent UTI, s/p ATBs Hypotonic Hyponatremia with potassium WNL Hypo-SOsm Dehydration Chronic PVD ASCVD COPD Hyperlipidemia CLAUDIO, does not wear CPAP BPH OA OP History of Melanoma Plan: Hydrate with IVF Cortisol level pending Check Leonor, UOSM; ACTH Continue home meds Daily Labs Repeat UA Repeat CXR GI/DVT prophylaxis
[2016-11-18] MEDS: Dronabinol 2.5 MG Cap PO SCH ×2 (14:27→18:03)
[2016-11-18] MEDS ORDERED: Loratadine 10 MG Tab PO ONE (16:12)
[2016-11-18] MEDS: guaiFENesin 600 MG Tab.ER PO SCH (20:45)
[2016-11-18] MEDS ORDERED: Loratadine 10 MG Tab PO SCH (21:00)
[2016-11-18] MEDS ORDERED: Fluticasone/Salmeterol 500-50 MCG Inhalation Powder 14/Diskus INH SCH (21:00)
[2016-11-19] MEDS: Dronabinol 2.5 MG Cap PO SCH ×3 (06:43→17:42)
[2016-11-19] MEDS: Cholecalciferol (Vitamin D3) 1,000 Unit Tab PO SCH (08:34)
[2016-11-19] MEDS: Rosuvastatin 10 MG Tab PO SCH (08:36)
[2016-11-19] MEDS: Loratadine 10 MG Tab PO SCH ×2 (08:36→20:14)
[2016-11-19] MEDS: guaiFENesin 600 MG Tab.ER PO SCH ×2 (08:36→20:14)
[2016-11-19] MEDS: Enoxaparin 40 MG/0.4 ML Syringe SUBCUT SCH (08:37)
[2016-11-19] MEDS ORDERED: Saccharomyces Boulardii (Probiotic) 250 MG Cap PO SCH (09:00)
[2016-11-19] MEDS ORDERED: Theophylline 200 MG Tab.ER PO SCH (09:00)
[2016-11-19] MEDS ORDERED: Azithromycin 250 MG Tab PO SCH (09:00)
[2016-11-19] MEDS: Patient's Own Medication 1 Each INH SCH (09:04)
[2016-11-19] MEDS: Theophylline 200 MG Tab.ER PO SCH ×2 (09:16→20:14)
[2016-11-19] MEDS ORDERED: Magnesium Sulfate/Water 2 GM in Premix Bag 1 BAG IV ONE (09:24)
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
[2016-11-19] MEDS: Potassium Chloride/Sodium Chloride Tab PO SCH ×2 (09:57→20:14)
[2016-11-19] MEDS: Sodium Chloride 0.9% 1,000 ML IV SCH ×2 (09:57→18:33)
[2016-11-19] MEDS ORDERED: Loperamide 2 MG Cap PO PRN (16:02)
[2016-11-19] MEDS: Saccharomyces Boulardii (Probiotic) 250 MG Cap PO SCH (17:42)
[2016-11-19] MEDS: ADVAIR 500/50 DISKUS INH SCH (20:28)
[2016-11-20] MEDS: Dronabinol 2.5 MG Cap PO SCH ×3 (06:45→17:38)
[2016-11-20] MEDS: Cholecalciferol (Vitamin D3) 1,000 Unit Tab PO SCH (08:33)
[2016-11-20] MEDS: Potassium Chloride/Sodium Chloride Tab PO SCH ×2 (08:33→20:26)
[2016-11-20] MEDS: guaiFENesin 600 MG Tab.ER PO SCH ×2 (08:34→20:25)
[2016-11-20] MEDS: Loratadine 10 MG Tab PO SCH ×2 (08:35→20:25)
[2016-11-20] MEDS: Rosuvastatin 10 MG Tab PO SCH (08:35)
[2016-11-20] MEDS: Enoxaparin 40 MG/0.4 ML Syringe SUBCUT SCH (08:36)
[2016-11-20] MEDS: Theophylline 200 MG Tab.ER PO SCH ×2 (08:36→20:27)
[2016-11-20] MEDS: Saccharomyces Boulardii (Probiotic) 250 MG Cap PO SCH (08:36)
[2016-11-20] MEDS: Patient's Own Medication 1 Each INH SCH (08:49)
[2016-11-20] MEDS ORDERED: Hydrocortisone Sodium Succinate 100 MG/2 ML SDV IVPUSH ONE (09:13)
[2016-11-20] MEDS ORDERED: Sodium Chloride 3% 500 ML IV SCH (09:15)
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
[2016-11-20] MEDS: [UNRECOGNIZED DRUG - MIXTURE] TOP SCH ×3 (10:10→20:26)
[2016-11-20] MEDS ORDERED: Acetaminophen 325 MG Tab PO PRN (11:19)
[2016-11-20] MEDS: Hydrocortisone Sodium Succinate 100 MG/2 ML SDV IVPUSH SCH ×2 (15:17→20:24)
[2016-11-20] MEDS: ADVAIR 500/50 DISKUS INH SCH (20:08)
[2016-11-21] MEDS: Hydrocortisone Sodium Succinate 100 MG/2 ML SDV IVPUSH SCH (02:33)
[2016-11-21] MEDS: Dronabinol 2.5 MG Cap PO SCH ×3 (06:21→17:24)
[2016-11-21] MEDS: guaiFENesin 600 MG Tab.ER PO SCH ×2 (08:16→21:06)
[2016-11-21] MEDS: Potassium Chloride/Sodium Chloride Tab PO SCH ×2 (08:16→21:07)
[2016-11-21] MEDS: Enoxaparin 40 MG/0.4 ML Syringe SUBCUT SCH (08:16)
[2016-11-21] MEDS: Loratadine 10 MG Tab PO SCH ×2 (08:18→21:07)
[2016-11-21] MEDS: Cholecalciferol (Vitamin D3) 1,000 Unit Tab PO SCH (08:18)
[2016-11-21] MEDS: Rosuvastatin 10 MG Tab PO SCH (08:18)
[2016-11-21] MEDS: Saccharomyces Boulardii (Probiotic) 250 MG Cap PO SCH (08:19)
[2016-11-21] MEDS: [UNRECOGNIZED DRUG - MIXTURE] TOP SCH ×3 (08:20→21:08)
[2016-11-21] MEDS: Sodium Chloride 0.9% 1,000 ML IV SCH ×2 (08:34→17:24)
[2016-11-21] MEDS: Patient's Own Medication 1 Each INH SCH (08:45)
[2016-11-21] MEDS: Hydrocortisone Sodium Succinate 100 MG/2 ML SDV IV SCH (14:25)
--- NOTE | 2016-11-21 14:25 | PCM.PN ---
<Jaki Hernandez M - Last Filed: 11/21/16 14:28> - General Info Date of Service: 11/21/16 Admission Dx/Problem (Free Text): Admission Diagnosis/Problem Admission Diagnosis/Problem Hyponatremia Art is seen sitting up at bedside. States appetite continues to be minimal. Denies c/o pain other than chronic neck pain. Energy is low and he is "tired most of the time". VSS, b/P stable and improved Awaiting cortisol level. Functional Status: Reports: pain controlled, tolerating diet, ambulating, urinating. Denies: new symptoms - Review of Systems General: Reports: Weakness, Fatigue, Malaise HEENT: Reports: no symptoms Pulmonary: Reports: no symptoms. Denies: shortness of breath Cardiovascular: Reports: No Symptoms. Denies: Chest Pain Gastrointestinal: Reports: No symptoms. Denies: Abdominal pain, Diarrhea, Nausea, Vomiting Genitourinary: Reports: no symptoms Musculoskeletal: Reports: no symptoms Skin: Reports: no symptoms Neurological: Reports: No Symptoms Psychiatric: Reports: no symptoms - Patient Data Vitals - most recent: Last Vital Signs Temp 97.3 F 11/21/16 08:08 Pulse 95 11/21/16 08:08 Resp 20 11/21/16 10:00 BP 113/63 11/21/16 08:08 Pulse Ox 92 L 11/21/16 08:45 Weight - most recent: 62.414 kg I&O - last 24 hours: Intake & Output 11/20/16 11/21/16 11/21/16 22:59 06:59 14:59 Intake Total 1014 1728 450 Output Total 700 1675 Balance 314 53 450 Lab Results last 24 hrs: Laboratory Results - last 24 hr 11/18/16 11/20/16 11/21/16 Range/Units 05:47 14:24 05:19 WBC (4.23-9.07) K/mm3 RBC (4.63-6.08) M/mm3 Hgb (13.7-17.5) gm/L Hct (40.1-51.0) % MCV (79.0-92.2) fl MCH (25.7-32.2) pg MCHC (32.2-35.5) g/dl RDW Std Deviation (35.1-43.9) fL Plt Count (163-337) K/mm3 MPV (9.4-12.3) fl Neut % (Auto) (34.0-67.9) % Lymph % (Auto) (21.8-53.1) % [place] % (Auto) (5.3-12.2) % Eos % (Auto) (0.8-7.0) Baso % (Auto) (0.1-1.2) % Neut # (Auto) (1.78-5.38) K/mm3 Lymph # (Auto) (1.32-3.57) K/mm3 [place] # (Auto) (0.30-0.82) K/mm3 Eos # (Auto) (0.04-0.54) K/mm3 Baso # (Auto) (0.01-0.08) K/mm3 Sodium 123 L 133 L (136-145) mEq/L Potassium 3.7 (3.5-5.1) mEq/L Chloride 100 (98-107) mEq/L Carbon Dioxide 20 L (21-32) mEq/L Anion Gap 16.7 H (5-15) BUN 8 (7-18) mg/dL Creatinine 0.8 (0.7-1.3) mg/dL Est Cr Clr Drug Dosing 69.35 mL/min Estimated GFR (MDRD) > 60 (>60) mL/min BUN/Creatinine Ratio 10.0 L (14-18) Glucose 135 H (83-115) mg/dL Calcium 8.7 (8.5-10.1) mg/dL Magnesium (1.8-2.4) mg/dl Cortisol 1.5 ug/dL C.difficile 027-NAP1-B1 C. difficile Tox (PCR) 11/21/16 11/21/16 11/21/16 Range/Units 05:19 05:19 09:00 WBC 8.37 (4.23-9.07) K/mm3 RBC 4.36 L (4.63-6.08) M/mm3 Hgb 12.9 L (13.7-17.5) gm/L Hct 36.7 L (40.1-51.0) % MCV 84.2 (79.0-92.2) fl MCH 29.6 (25.7-32.2) pg MCHC 35.1 (32.2-35.5) g/dl RDW Std Deviation 38.6 (35.1-43.9) fL Plt Count 385 H (163-337) K/mm3 MPV 9.3 L (9.4-12.3) fl Neut % (Auto) 79.8 H (34.0-67.9) % Lymph % (Auto) 11.7 L (21.8-53.1) % [place] % (Auto) 7.2 (5.3-12.2) % Eos % (Auto) 0.2 L (0.8-7.0) Baso % (Auto) 0.1 (0.1-1.2) % Neut # (Auto) 6.68 H (1.78-5.38) K/mm3 Lymph # (Auto) 0.98 L (1.32-3.57) K/mm3 [place] # (Auto) 0.60 (0.30-0.82) K/mm3 Eos # (Auto) 0.02 L (0.04-0.54) K/mm3 Baso # (Auto) 0.01 (0.01-0.08) K/mm3 Sodium (136-145) mEq/L Potassium (3.5-5.1) mEq/L Chloride (98-107) mEq/L Carbon Dioxide (21-32) mEq/L Anion Gap (5-15) BUN (7-18) mg/dL Creatinine (0.7-1.3) mg/dL Est Cr Clr Drug Dosing mL/min Estimated GFR (MDRD) (>60) mL/min BUN/Creatinine Ratio (14-18) Glucose (83-115) mg/dL Calcium (8.5-10.1) mg/dL Magnesium 2.0 (1.8-2.4) mg/dl Cortisol ug/dL C.difficile 027-NAP1-B1 Presumptive negative C. difficile Tox (PCR) Negative Cedric Results last 24 hrs: Microbiology 11/21/16 09:00 Rotavirus Antigen - Final Stool / Feces - Stool, Formed NEGATIVE ROTAVIRUS ANTIGEN 11/21/16 09:00 Helicobacter pylori Antigen - Final Stool / Feces - Stool, Formed Positive H Pylori Ag 11/21/16 09:00 Stool for WBCs - Final Stool / Feces - Stool, Formed Med Orders - Current: Current Medications Acetaminophen (Tylenol) 650 mg PO Q6H PRN PRN Reason: Pain Last Admin: 11/20/16 12:26 Dose: 650 mg Amoxicillin (Amoxil) 1,000 mg PO TID [facility] Cholecalciferol (Vitamin D3) 2,000 units PO DAILY [facility] Last Admin: 11/21/16 08:18 Dose: 2,000 units Dronabinol (Marinol) 2.5 mg PO TIDMEALS [facility] Last Admin: 11/21/16 13:47 Dose: Not Given Enoxaparin Sodium (Lovenox) 40 mg SUBCUT DAILY [facility] Last Admin: 11/21/16 08:16 Dose: 40 mg Guaifenesin (Mucinex) 1,200 mg PO BID [facility] Last Admin: 11/21/16 08:16 Dose: 1,200 mg Hydrocortisone Sodium Succinate (Solu-Cortef) 50 mg IV Q12H [facility] Sodium Chloride (Normal Saline) 1,000 mls @ 125 mls/hr IV ASDIRECTED [facility] Last Admin: 11/21/16 08:34 Dose: 125 mls/hr Lansoprazole (Prevacid Solutab) 30 mg PO BID [facility] Loperamide HCl (Imodium) 2 mg PO Q4H PRN PRN Reason: Diarrhea Loratadine (Claritin) 5 mg PO BID [facility] Last Admin: 11/21/16 08:18 Dose: 5 mg Oral Electrolytes (Thermotabs) 1 each PO BID [facility] Last Admin: 11/21/16 08:16 Dose: 1 each Patient Own Medication (Ptom) 0 each INH DAILY [facility] Last Admin: 11/21/16 08:45 Dose: 1 each Advair 500/50 Diskus 0 each INH BEDTIME [facility] Last Admin: 11/20/16 20:08 Dose: 1 each C-Carly/Stephenie/Bacl/Bupi/Clon Coumpounded [place]rs[place]ine 0 each TOP TID [facility] Last Admin: 11/21/16 08:20 Dose: 1 each Rosuvastatin Calcium (Crestor) 5 mg PO DAILY [facility] Last Admin: 11/21/16 08:18 Dose: 5 mg Saccharomyces Boulardii (Florastor) 500 mg PO DAILY [facility] Last Admin: 11/21/16 08:19 Dose: 500 mg Theophylline (Theophylline Anhydrous) 200 mg PO BID [facility] Last Admin: 11/20/16 20:27 Dose: 200 mg Discontinued Medications Azithromycin (Zithromax) 250 mg PO DAILY [facility] Last Admin: 11/19/16 08:36 Dose: 250 mg Hydrocortisone Sodium Succinate (Solu-Cortef) 100 mg IVPUSH ONETIME ONE Stop: 11/20/16 09:14 Last Admin: 11/20/16 09:44 Dose: 100 mg Hydrocortisone Sodium Succinate (Solu-Cortef) 50 mg IVPUSH Q6H ARNIE Stop: 11/21/16 03:01 Last Admin: 11/21/16 02:33 Dose: 50 mg Sodium Chloride (Normal Saline) 500 mls @ 999 mls/hr IV .BOLUS ONE Stop: 11/17/16 20:16 Last Admin: 11/17/16 19:51 Dose: 999 mls/hr Sodium Chloride (Normal Saline) 1,000 mls @ 750 mls/hr IV ASDIRECTED [facility] Last Admin: 11/18/16 03:02 Dose: 250 mls/hr Magnesium Sulfate 2 gm/ Premix 50 mls @ 25 mls/hr IV ONETIME ONE Stop: 11/19/16 11:23 Last Admin: 11/19/16 09:57 Dose: 25 mls/hr Sodium Chloride (Sodium Chloride 3%) 500 mls @ 10 mls/hr IV ONETIME ARNIE Stop: 11/20/16 12:15 Last Admin: 11/20/16 10:10 Dose: 10 mls/hr Loratadine (Claritin) 5 mg PO BID [facility] Loratadine (Claritin) 10 mg PO ONETIME ONE Stop: 11/18/16 16:13 Last Admin: 11/18/16 16:22 Dose: 10 mg Alendronate 70mg Tab 0 each PO He@0500 [facility] Saccharomyces Boulardii (Florastor) 250 mg PO DAILY [facility] Last Admin: 11/19/16 08:34 Dose: 250 mg Fluticasone/Salmeterol (Advair Diskus 500-50) 2 puff INH BEDTIME [facility] Last Admin: 11/18/16 21:00 Dose: 2 puff Theophylline (Theophylline Anhydrous) 400 mg PO DAILY [facility] Last Admin: 11/19/16 09:18 Dose: Not Given - Exam Quality Assessment: DVT prophylaxis General: alert, oriented, cooperative, no acute distress HEENT: Pupils equal, Pupils reactive, EOMI, Mucous membr. moist/pink Neck: supple Lungs: Clear to auscultation, Normal respiratory effort, Decreased breath sounds (mid to lower lobes bilat) Cardiovascular: Regular Rate, Regular Rhythm, No Murmurs Abdomen: bowel sounds present, soft, no tenderness, no distension (Male) Exam: Deferred Extremities: no edema, no calf tenderness, other (rt foot with toes amputated) Skin: warm, dry Neurological: no new focal deficit Psy/Mental Status: alert, normal affect, normal mood - Problem List & Annotations (1) Hypo-osmolality and hyponatremia SNOMED Code(s): 723217917 Code(s): E87.1 - HYPO-OSMOLALITY AND HYPONATREMIA Status: Acute Priority : High Current Visit: Yes (2) Generalized weakness SNOMED Code(s): 78126453 Code(s): R53.1 - WEAKNESS Status: Acute Priority: High Current Visit: Yes (3) Decreased appetite SNOMED Code(s): 61208962 Code(s): R63.0 - ANOREXIA Status: Acute Priority: High Current Visit: Yes (4) Helicobacter pylori (H. pylori) infection SNOMED Code(s): 848920348 Code(s): A04.8 - OTHER SPECIFIED BACTERIAL INTESTINAL INFECTIONS Status: Acute Priority: High Current Visit: Yes - Problem List Review Problem List Initiated/Reviewed/Updated: Yes - My Orders Last 24 Hours: My Active Orders 11/21/16 15:00 Amoxicillin [Amoxil] 1,000 mg PO TID Hydrocortisone Sod Succinate [Solu-CORTEF] 50 mg IV Q12H 11/21/16 21:00 Lansoprazole [Prevacid Solutab] 30 mg PO BID - Plan Plan:: Impression: Hypotonic Hyponatremia with potassium WNL; cortisol/ACTH pending--suspect adrenal insufficiency Hypo-SOsm Leonor/UOsm are WNL Dehydration Decreased appetite/weight loss Generalized weakness -Normal TFT -Vit D level ordered Helicopylori infection- stool positive -Will treat as feel infection is likely contributing to infection -Amoxicillin TID x 2 weeks, PPI BIDx 2 weeks Chronic PVD ASCVD COPD Hyperlipidemia CLAUDIO, does not wear CPAP BPH OA OP History of Melanoma Plan: Hypotonic saline today; Na+ 123 this morning, Normal K+ Thermotabs Will treat as adrenal insufficiency/crisis pending labs; hydrocortisone IV 100mg now then 50mg Q6 hours---awaiting cortisol level today Continue home meds Daily Labs Repeat UA--negative for infection Repeat CXR GI/DVT prophylaxis PT/OT CM/SW for assist with DC planning Patient is Full Code <Dolores Chaudhry - Last Filed: 11/21/16 16:42> - Patient Data Vitals - most recent: Last Vital Signs Temp 36.8 C 11/21/16 14:55 Pulse 74 11/21/16 14:55 Resp 20 11/21/16 14:55 BP 105/63 11/21/16 14:55 Pulse Ox 94 L 11/21/16 14:55 I&O - last 24 hours: Intake & Output 11/21/16 11/21/16 11/21/16 06:59 14:59 22:59 Intake Total 3991 115 7087 Output Total 1675 850 Balance 53 450 1051 Lab Results last 24 hrs: Laboratory Results - last 24 hr 11/18/16 11/21/16 11/21/16 Range/Units 05:47 05:19 05:19 WBC (4.23-9.07) K/mm3 RBC (4.63-6.08) M/mm3 Hgb (13.7-17.5) gm/L Hct (40.1-51.0) % MCV (79.0-92.2) fl MCH (25.7-32.2) pg MCHC (32.2-35.5) g/dl RDW Std Deviation (35.1-43.9) fL Plt Count (163-337) K/mm3 MPV (9.4-12.3) fl Neut % (Auto) (34.0-67.9) % Lymph % (Auto) (21.8-53.1) % [place] % (Auto) (5.3-12.2) % Eos % (Auto) (0.8-7.0) Baso % (Auto) (0.1-1.2) % Neut # (Auto) (1.78-5.38) K/mm3 Lymph # (Auto) (1.32-3.57) K/mm3 [place] # (Auto) (0.30-0.82) K/mm3 Eos # (Auto) (0.04-0.54) K/mm3 Baso # (Auto) (0.01-0.08) K/mm3 Sodium 133 L (136-145) mEq/L Potassium 3.7 (3.5-5.1) mEq/L Chloride 100 (98-107) mEq/L Carbon Dioxide 20 L (21-32) mEq/L Anion Gap 16.7 H (5-15) BUN 8 (7-18) mg/dL Creatinine 0.8 (0.7-1.3) mg/dL Est Cr Clr Drug Dosing 69.35 mL/min Estimated GFR (MDRD) > 60 (>60) mL/min BUN/Creatinine Ratio 10.0 L (14-18) Glucose 135 H (83-115) mg/dL Calcium 8.7 (8.5-10.1) mg/dL Magnesium 2.0 (1.8-2.4) mg/dl Cortisol 1.5 ug/dL C.difficile 027-NAP1-B1 C. difficile Tox (PCR) 11/21/16 11/21/16 Range/Units 05:19 09:00 WBC 8.37 (4.23-9.07) K/mm3 RBC 4.36 L (4.63-6.08) M/mm3 Hgb 12.9 L (13.7-17.5) gm/L Hct 36.7 L (40.1-51.0) % MCV 84.2 (79.0-92.2) fl MCH 29.6 (25.7-32.2) pg MCHC 35.1 (32.2-35.5) g/dl RDW Std Deviation 38.6 (35.1-43.9) fL Plt Count 385 H (163-337) K/mm3 MPV 9.3 L (9.4-12.3) fl Neut % (Auto) 79.8 H (34.0-67.9) % Lymph % (Auto) 11.7 L (21.8-53.1) % [place] % (Auto) 7.2 (5.3-12.2) % Eos % (Auto) 0.2 L (0.8-7.0) Baso % (Auto) 0.1 (0.1-1.2) % Neut # (Auto) 6.68 H (1.78-5.38) K/mm3 Lymph # (Auto) 0.98 L (1.32-3.57) K/mm3 [place] # (Auto) 0.60 (0.30-0.82) K/mm3 Eos # (Auto) 0.02 L (0.04-0.54) K/mm3 Baso # (Auto) 0.01 (0.01-0.08) K/mm3 Sodium (136-145) mEq/L Potassium (3.5-5.1) mEq/L Chloride (98-107) mEq/L Carbon Dioxide (21-32) mEq/L Anion Gap (5-15) BUN (7-18) mg/dL Creatinine (0.7-1.3) mg/dL Est Cr Clr Drug Dosing mL/min Estimated GFR (MDRD) (>60) mL/min BUN/Creatinine Ratio (14-18) Glucose (83-115) mg/dL Calcium (8.5-10.1) mg/dL Magnesium (1.8-2.4) mg/dl Cortisol ug/dL C.difficile 027-NAP1-B1 Presumptive negative C. difficile Tox (PCR) Negative Cedric Results last 24 hrs: Microbiology 11/21/16 09:00 Rotavirus Antigen - Final Stool / Feces - Stool, Formed NEGATIVE ROTAVIRUS ANTIGEN 11/21/16 09:00 Helicobacter pylori Antigen - Final Stool / Feces - Stool, Formed Positive H Pylori Ag 11/21/16 09:00 Stool for WBCs - Final Stool / Feces - Stool, Formed Med Orders - Current: Current Medications Acetaminophen (Tylenol) 650 mg PO Q6H PRN PRN Reason: Pain Last Admin: 11/20/16 12:26 Dose: 650 mg Amoxicillin (Amoxil) 1,000 mg PO TID [facility] Last Admin: 11/21/16 15:34 Dose: 1,000 mg Cholecalciferol (Vitamin D3) 2,000 units PO DAILY [facility] Last Admin: 11/21/16 08:18 Dose: 2,000 units Dronabinol (Marinol) 2.5 mg PO TIDMEALS [facility] Last Admin: 11/21/16 13:47 Dose: Not Given Enoxaparin Sodium (Lovenox) 40 mg SUBCUT DAILY [facility] Last Admin: 11/21/16 08:16 Dose: 40 mg Guaifenesin (Mucinex) 1,200 mg PO BID [facility] Last Admin: 11/21/16 08:16 Dose: 1,200 mg Hydrocortisone Sodium Succinate (Solu-Cortef) 50 mg IV Q12H [facility] Last Admin: 11/21/16 14:25 Dose: 50 mg Sodium Chloride (Normal Saline) 1,000 mls @ 125 mls/hr IV ASDIRECTED [facility] Last Admin: 11/21/16 08:34 Dose: 125 mls/hr Lansoprazole (Prevacid Solutab) 30 mg PO BID [facility] Loperamide HCl (Imodium) 2 mg PO Q4H PRN PRN Reason: Diarrhea Loratadine (Claritin) 5 mg PO BID [facility] Last Admin: 11/21/16 08:18 Dose: 5 mg Oral Electrolytes (Thermotabs) 1 each PO BID [facility] Last Admin: 11/21/16 08:16 Dose: 1 each Patient Own Medication (Ptom) 0 each INH DAILY [facility] Last Admin: 11/21/16 08:45 Dose: 1 each Advair 500/50 Diskus 0 each INH BEDTIME [facility] Last Admin: 11/20/16 20:08 Dose: 1 each C-Carly/Stephenie/Bacl/Bupi/Clon Coumpounded [place] 0 each TOP TID [facility] Last Admin: 11/21/16 15:36 Dose: 1 each Rosuvastatin Calcium (Crestor) 5 mg PO DAILY [facility] Last Admin: 11/21/16 08:18 Dose: 5 mg Saccharomyces Boulardii (Florastor) 500 mg PO DAILY [facility] Last Admin: 11/21/16 08:19 Dose: 500 mg Theophylline (Theophylline Anhydrous) 200 mg PO BID [facility] Last Admin: 11/21/16 14:27 Dose: 200 mg Discontinued Medications Azithromycin (Zithromax) 250 mg PO DAILY [facility] Last Admin: 11/19/16 08:36 Dose: 250 mg Hydrocortisone Sodium Succinate (Solu-Cortef) 100 mg IVPUSH ONETIME ONE Stop: 11/20/16 09:14 Last Admin: 11/20/16 09:44 Dose: 100 mg Hydrocortisone Sodium Succinate (Solu-Cortef) 50 mg IVPUSH Q6H ARNIE Stop: 11/21/16 03:01 Last Admin: 11/21/16 02:33 Dose: 50 mg Sodium Chloride (Normal Saline) 500 mls @ 999 mls/hr IV .BOLUS ONE Stop: 11/17/16 20:16 Last Admin: 11/17/16 19:51 Dose: 999 mls/hr Sodium Chloride (Normal Saline) 1,000 mls @ 750 mls/hr IV ASDIRECTED [facility] Last Admin: 11/18/16 03:02 Dose: 250 mls/hr Magnesium Sulfate 2 gm/ Premix 50 mls @ 25 mls/hr IV ONETIME ONE Stop: 11/19/16 11:23 Last Admin: 11/19/16 09:57 Dose: 25 mls/hr Sodium Chloride (Sodium Chloride 3%) 500 mls @ 10 mls/hr IV ONETIME ARNIE Stop: 11/20/16 12:15 Last Admin: 11/20/16 10:10 Dose: 10 mls/hr Loratadine (Claritin) 5 mg PO BID ARNIE Loratadine (Claritin) 10 mg PO ONETIME ONE Stop: 11/18/16 16:13 Last Admin: 11/18/16 16:22 Dose: 10 mg Alendronate 70mg Tab 0 each PO He@0500 [facility] Saccharomyces Boulardii (Florastor) 250 mg PO DAILY [facility] Last Admin: 11/19/16 08:34 Dose: 250 mg Fluticasone/Salmeterol (Advair Diskus 500-50) 2 puff INH BEDTIME [facility] Last Admin: 11/18/16 21:00 Dose: 2 puff Theophylline (Theophylline Anhydrous) 400 mg PO DAILY [facility] Last Admin: 11/19/16 09:18 Dose: Not Given - Problem List & Annotations (1) Dehydration SNOMED Code(s): 92197471 Code(s): E86.0 - DEHYDRATION Status: Acute Current Visit: Yes (2) Hypo-osmolality and hyponatremia SNOMED Code(s): 603380453 Code(s): E87.1 - HYPO-OSMOLALITY AND HYPONATREMIA Status: Acute Priority : High Current Visit: Yes (3) Bronchitis SNOMED Code(s): 92244758 Code(s): J40 - BRONCHITIS, NOT SPECIFIED ACUTE OR CHRONIC Status: Acute Current Visit: No - My Orders Last 24 Hours: My Active Orders 11/21/16 09:00 CULTURE STOOL + SHIGATOX [RM] Routine 11/22/16 05:00 BMP [BASIC METABOLIC PANEL,BMP] [CHEM] DAILY 11/22/16 05:24 MAGNESIUM [CHEM] DAILY 11/22/16 09:23 CBC WITH AUTO DIFF [HEME] DAILY 11/23/16 07:00 CBC W/O DIFF,HEMOGRAM [HEME] MOTH@0700 11/27/16 07:00 CBC W/O DIFF,HEMOGRAM [HEME] MOTH@69911/30/16 07:00 CBC W/O DIFF,HEMOGRAM [HEME] MOTH@69912/04/16 07:00 CBC W/O DIFF,HEMOGRAM [HEME] MOTH@00 12/07/16 07:00 CBC W/O DIFF,HEMOGRAM [HEME] MOTH@07 - Plan Plan:: Definitive AI labs are pending, presumptively started RX. Also H Pylori positive by stool.
[2016-11-21] MEDS: Theophylline 200 MG Tab.ER PO SCH ×2 (14:27→21:08)
[2016-11-21] MEDS: Amoxicillin 500 MG Cap PO SCH ×2 (15:34→21:07)
[2016-11-21] MEDS: ADVAIR 500/50 DISKUS INH SCH (19:52)
[2016-11-21] MEDS: Lansoprazole 30 MG Orally Disintegrating Tab.CR PO SCH (21:07)
[2016-11-22] MEDS: Hydrocortisone Sodium Succinate 100 MG/2 ML SDV IV SCH (04:13)
[2016-11-22] MEDS: Dronabinol 2.5 MG Cap PO SCH (06:11)
[2016-11-22 07:36] VITALS: BP 111/71
[2016-11-22] MEDS: ADVAIR 500/50 DISKUS INH SCH (07:45)
[2016-11-22] MEDS ORDERED: Magnesium Oxide 400 MG Tab PO ONE (08:25)
[2016-11-22] MEDS ORDERED: Potassium Chloride 10% 20 MEQ/15 ML Soln 30 ML UD Cup PO ONE (08:25)
[2016-11-22] MEDS: Patient's Own Medication 1 Each INH SCH (08:41)
[2016-11-22] MEDS: Saccharomyces Boulardii (Probiotic) 250 MG Cap PO SCH (08:58)
[2016-11-22] MEDS: Lansoprazole 30 MG Orally Disintegrating Tab.CR PO SCH (08:59)
[2016-11-22] MEDS: Cholecalciferol (Vitamin D3) 1,000 Unit Tab PO SCH (08:59)
[2016-11-22] MEDS: guaiFENesin 600 MG Tab.ER PO SCH (08:59)
[2016-11-22] MEDS: Amoxicillin 500 MG Cap PO SCH (08:59)
[2016-11-22] MEDS: Rosuvastatin 10 MG Tab PO SCH (08:59)
[2016-11-22] MEDS: Enoxaparin 40 MG/0.4 ML Syringe SUBCUT SCH (09:00)
[2016-11-22] MEDS: Loratadine 10 MG Tab PO SCH (09:00)
[2016-11-22] MEDS: Theophylline 200 MG Tab.ER PO SCH (09:00)
[2016-11-22] MEDS: [UNRECOGNIZED DRUG - MIXTURE] TOP SCH (10:29)
--- NOTE | 2016-11-22 12:36 | PCM.DCSUM1 ---
<Jaki Hernandez - Last Filed: 11/22/16 13:00> Discharge Summary - Hospital Course Free Text/Narrative:: 76 year old male seen initially in the ED with weakness, fatigue, anorexia and hyponatremia by clinic labs. He is sent over to ER by his PCP. He was recently hospitalized and treatment for acute bronchitis and hyponatremia. Cough is resolved now. At the time of discharge, November 14, Na 136/K 4.3 cf November 17, Na 122/K 4.2. Since he has been home, the family states he not really eating much, low energy/activity levels. B/P while in ED on day of this admission was 87/54. Hyponatremia was also present. Reportedly, in the remote past, had a history of adrenal insufficiency; not treated for 20-30 years by family reports. This is a new consideration by his PCP who saw him in his office on the day of admission. Hospitalist service was consulted for admission. Patient admitted to [facility] Telemetry unit. He was hydrated, labs followed. Sodium remained low despite attempts at replacement. K+ was WNL. Urine osmolality was WNL as was urine sodium. TSH, Vit D levels WNL. Theophilline level WNL. H.Pylori stool test was positive. Treatment was initiated with amoxicillin TID and PPI BID x 2 week course. He will be set up to see General Surgery as outpatient for further evaluation/EGD eval for this. Cortisol level was also obtained and resulted low at 1.5. In the interim of waiting for send out lab/cortisol, treatment was initiated for adrenal insufficiency with hydrocortisone IVP. He responded very well with this treatment, energy was significantly improved. B/P improved and normalized. Appetite is still low but improved overall. He will be set up with Endocrinology as outpatient for consult for adrenal insufficiency. He will resume Home Health Care as per prior discharge orders. He is to follow up with his PCP, Dr. Cowan within one week of discharge. - Discharge Data Discharge Date: 11/22/16 (admit date 11/17/16) Discharge Disposition: Home, Self-Care 01 Condition: Good - Discharge Diagnosis/Problem(s) (1) Adrenal insufficiency (Marathon's disease) SNOMED Code(s): 647244787 ICD Code: E27.1 - PRIMARY ADRENOCORTICAL INSUFFICIENCY Status: Acute Priority: High (2) Hypo-osmolality and hyponatremia SNOMED Code(s): 428047897 ICD Code: E87.1 - HYPO-OSMOLALITY AND HYPONATREMIA Status: Resolved Priority: High (3) Generalized weakness SNOMED Code(s): 04198740 ICD Code: R53.1 - WEAKNESS Status: Acute Priority: High (4) Decreased appetite SNOMED Code(s): 11504177 ICD Code: R63.0 - ANOREXIA Status: Acute Priority: High (5) Helicobacter pylori (H. pylori) infection SNOMED Code(s): 093305587 ICD Code: A04.8 - OTHER SPECIFIED BACTERIAL INTESTINAL INFECTIONS Status: Acute Priority: High (6) Anemia SNOMED Code(s): 053924071 ICD Code: D64.9 - ANEMIA, UNSPECIFIED Status: Chronic Priority: Medium Qualifiers: Anemia type: unspecified type Qualified Code(s): D64.9 - Anemia, unspecified - Patient Summary/Data Operative Procedure(s) Performed: None Complications: None Consults: None Labs Pending at D/C: None Recommended Follow-up Testing/Procedures: Follow up with Endocrinology for Adrenal Insufficiency Follow up with General Surgery for h.pylori infection, anemia--EGD evaluation Follow up with PCP, Dr. Cowan within one week of discharge Planned Operative Procedure(s) after DC: None Hospital Course: As above - Patient Instructions Diet: Usual Diet as Tolerated, Drink 8-10+ Glasses/Day Activity: As Tolerated Showering/Bathing: May Shower Notify Provider of: Fever, Increased Pain, Nausea and/or Vomiting - Discharge Plan Prescriptions/Med Rec: Amoxicillin [Amoxil] 1,000 mg PO TID #39 cap Omeprazole 20 mg PO BIDAC #28 cap.cr Prednisone [IJD: Prednisone] 10 mg PO DAILY #70 tab Home Medications: Home Meds Alendronate [Fosamax] 70 mg PO IRVIN 06/06/16 [History] Cholecalciferol (Vitamin D3) [Vitamin D3] 2,000 unit PO DAILY 06/06/16 [History] Fluticasone/Salmeterol [Advair 500-50 Diskus] 2 puff IH BEDTIME 06/06/16 [ History] Glucosamine/Chondro Irvin A [Cosamin DS] 2 tab PO DAILY 06/06/16 [History] Multivitamin [Multivitamins] 1 each PO DAILY 06/06/16 [History] Rosuvastatin [Crestor] 5 mg PO DAILY 06/06/16 [History] Theophylline [Carlito-24] 400 mg PO DAILY 06/06/16 [History] Acetylcysteine [Nac] 600 mg PO DAILY 07/21/16 [History] Albuterol Sulfate [Ventolin Hfa] 18 gm IH DAILY 07/21/16 [History] Glutamine [l-Glutamine] 2 tsp PO DAILY 07/21/16 [History] Magnesium 250 mg PO DAILY 07/21/16 [History] Ultra Meal Advance Protein Supplement 2 dose PO BID 07/21/16 [History] Protein Supplement [Procel] 1 pkt PO DAILY 11/07/16 [History] L.acidoph,Paracasei, B.lactis [Probiotic] 1 each PO DAILY 11/11/16 [History] Dronabinol [Marinol] 2.5 mg PO TIDMEALS #60 cap 11/14/16 [Rx] Loratadine [Claritin] 5 mg PO BID #60 tablet 11/14/16 [Rx] guaiFENesin [Mucinex] 1,200 mg PO BID #60 tab.er 11/14/16 [Rx] Amoxicillin [Amoxil] 1,000 mg PO TID #39 cap 11/22/16 [Rx] Omeprazole 20 mg PO BIDAC #28 cap.cr 11/22/16 [Rx] Patient's Own Medication [Ptom] 0 each TOP TID each 11/22/16 [Rx] Prednisone [IJD: Prednisone] 10 mg PO DAILY #70 tab 11/22/16 [Rx] Patient Handouts: Cortisol, Marathon Disease, Hyponatremia, [id number], Dehydration, Adult, [id number] Referrals: Rudolph Delacruz MD [Physician] - 11/30/16 1:45 pm (appointment at [facility] in [place]) Kareem Cowan MD [Primary Care Provider] - 12/04/16 4:15 pm - Discharge Summary/Plan Comment DC Time >30 min.: Yes (40 min) - General Info Date of Service: 11/22/16 Admission Dx/Problem (Free Text: Admission Diagnosis/Problem Admission Diagnosis/Problem Hyponatremia Art is seen sitting up in chair, dressed in street clothes in anticipation for discharge today. He reports feeling "much better", energy is returning. Appetite is still low but improved, color is better today. Denies c/o pain other than chronic neck pain; which is much improved today also. VSS, b/P stable and improved Functional Status: Reports: pain controlled, tolerating diet, ambulating, urinating. Denies: new symptoms - Review of Systems General: Reports: Weakness (significantly improved), Fatigue (significantly improved), Appetite (improved). Denies: Fever Pulmonary: Reports: no symptoms. Denies: shortness of breath, cough Cardiovascular: Reports: No Symptoms. Denies: Chest Pain, Palpitations Gastrointestinal: Reports: No symptoms. Denies: Abdominal pain, Diarrhea, Nausea, Vomiting Musculoskeletal: Reports: neck pain (improved) Neurological: Reports: No Symptoms Psychiatric: Reports: no symptoms - Patient Data Vitals - Most Recent: Last Vital Signs Temp 98.6 F 11/22/16 07:35 Pulse 76 11/22/16 07:35 Resp 14 11/22/16 07:35 BP 111/71 11/22/16 07:35 Pulse Ox 96 11/22/16 08:41 Weight - Most Recent: 64.365 kg I&O - Last 24 hours: Intake & Output 11/21/16 11/22/16 11/22/16 22:59 06:59 14:59 Intake Total 1901 500 330 Output Total 850 200 Balance 1051 300 330 Lab Results - Last 24 hrs: Laboratory Results - last 24 hr 11/20/16 11/22/16 11/22/16 Range/Units 05:46 05:17 05:17 WBC (4.23-9.07) K/mm3 RBC (4.63-6.08) M/mm3 Hgb (13.7-17.5) gm/L Hct (40.1-51.0) % MCV (79.0-92.2) fl MCH (25.7-32.2) pg MCHC (32.2-35.5) g/dl RDW Std Deviation (35.1-43.9) fL Plt Count (163-337) K/mm3 MPV (9.4-12.3) fl Neut % (Auto) (34.0-67.9) % Lymph % (Auto) (21.8-53.1) % Mobile % (Auto) (5.3-12.2) % Eos % (Auto) (0.8-7.0) Baso % (Auto) (0.1-1.2) % Neut # (Auto) (1.78-5.38) K/mm3 Lymph # (Auto) (1.32-3.57) K/mm3 Mobile # (Auto) (0.30-0.82) K/mm3 Eos # (Auto) (0.04-0.54) K/mm3 Baso # (Auto) (0.01-0.08) K/mm3 Sodium 139 (136-145) mEq/L Potassium 3.2 L (3.5-5.1) mEq/L Chloride 106 (98-107) mEq/L Carbon Dioxide 22 (21-32) mEq/L Anion Gap 14.2 (5-15) BUN 8 (7-18) mg/dL Creatinine 0.7 (0.7-1.3) mg/dL Est Cr Clr Drug Dosing 81.73 mL/min Estimated GFR (MDRD) > 60 (>60) mL/min BUN/Creatinine Ratio 11.4 L (14-18) Glucose 104 (83-115) mg/dL Calcium 8.2 L (8.5-10.1) mg/dL Magnesium 1.9 (1.8-2.4) mg/dl Vitamin D 25-Hydroxy 48 (30-100) ng/mL 11/22/16 Range/Units 05:17 WBC 7.20 (4.23-9.07) K/mm3 RBC 3.86 L (4.63-6.08) M/mm3 Hgb 11.5 L (13.7-17.5) gm/L Hct 33.2 L (40.1-51.0) % MCV 86.0 (79.0-92.2) fl MCH 29.8 (25.7-32.2) pg MCHC 34.6 (32.2-35.5) g/dl RDW Std Deviation 39.6 (35.1-43.9) fL Plt Count 361 H (163-337) K/mm3 MPV 8.9 L (9.4-12.3) fl Neut % (Auto) 64.3 (34.0-67.9) % Lymph % (Auto) 20.7 L (21.8-53.1) % Mobile % (Auto) 11.7 (5.3-12.2) % Eos % (Auto) 2.1 (0.8-7.0) Baso % (Auto) 0.6 (0.1-1.2) % Neut # (Auto) 4.64 (1.78-5.38) K/mm3 Lymph # (Auto) 1.49 (1.32-3.57) K/mm3 Mobile # (Auto) 0.84 H (0.30-0.82) K/mm3 Eos # (Auto) 0.15 (0.04-0.54) K/mm3 Baso # (Auto) 0.04 (0.01-0.08) K/mm3 Sodium (136-145) mEq/L Potassium (3.5-5.1) mEq/L Chloride (98-107) mEq/L Carbon Dioxide (21-32) mEq/L Anion Gap (5-15) BUN (7-18) mg/dL Creatinine (0.7-1.3) mg/dL Est Cr Clr Drug Dosing mL/min Estimated GFR (MDRD) (>60) mL/min BUN/Creatinine Ratio (14-18) Glucose (83-115) mg/dL Calcium (8.5-10.1) mg/dL Magnesium (1.8-2.4) mg/dl Vitamin D 25-Hydroxy (30-100) ng/mL ANASTACIO Results - Last 24 hrs: Microbiology 11/21/16 09:00 Stool Culture - Preliminary Stool / Feces - Stool, Formed - Final - Final 11/21/16 09:00 Rotavirus Antigen - Final Stool / Feces - Stool, Formed NEGATIVE ROTAVIRUS ANTIGEN 11/21/16 09:00 Helicobacter pylori Antigen - Final Stool / Feces - Stool, Formed Positive H Pylori Ag 11/21/16 09:00 Stool for WBCs - Final Stool / Feces - Stool, Formed Med Orders - Current: Current Medications Acetaminophen (Tylenol) 650 mg PO Q6H PRN PRN Reason: Pain Last Admin: 11/20/16 12:26 Dose: 650 mg Amoxicillin (Amoxil) 1,000 mg PO TID ARNIE Last Admin: 11/22/16 08:59 Dose: 1,000 mg Cholecalciferol (Vitamin D3) 2,000 units PO DAILY ARNIE Last Admin: 11/22/16 08:59 Dose: 2,000 units Dronabinol (Marinol) 2.5 mg PO TIDMEALS [facility] Last Admin: 11/22/16 06:11 Dose: Not Given Enoxaparin Sodium (Lovenox) 40 mg SUBCUT DAILY [facility] Last Admin: 11/22/16 09:00 Dose: 40 mg Guaifenesin (Mucinex) 1,200 mg PO BID [facility] Last Admin: 11/22/16 08:59 Dose: 1,200 mg Hydrocortisone Sodium Succinate (Solu-Cortef) 50 mg IV Q12H [facility] Last Admin: 11/22/16 04:13 Dose: 50 mg Sodium Chloride (Normal Saline) 1,000 mls @ 125 mls/hr IV ASDIRECTED [facility] Last Admin: 11/21/16 17:24 Dose: 125 mls/hr Lansoprazole (Prevacid Solutab) 30 mg PO BID [facility] Last Admin: 11/22/16 08:59 Dose: 30 mg Loperamide HCl (Imodium) 2 mg PO Q4H PRN PRN Reason: Diarrhea Loratadine (Claritin) 5 mg PO BID [facility] Last Admin: 11/22/16 09:00 Dose: 5 mg Patient Own Medication (Ptom) 0 each INH DAILY [facility] Last Admin: 11/22/16 08:41 Dose: 1 each Advair 500/50 Diskus 0 each INH BEDTIME [facility] Last Admin: 11/22/16 07:45 Dose: Not Given C-Carly/Stephenie/Bacl/Bupi/Clon Coumpounded Auxvasse 0 each TOP TID [facility] Last Admin: 11/22/16 10:29 Dose: Not Given Rosuvastatin Calcium (Crestor) 5 mg PO DAILY [facility] Last Admin: 11/22/16 08:59 Dose: 5 mg Saccharomyces Boulardii (Florastor) 500 mg PO DAILY [facility] Last Admin: 11/22/16 08:58 Dose: 500 mg Theophylline (Theophylline Anhydrous) 200 mg PO BID [facility] Last Admin: 11/22/16 09:00 Dose: 200 mg Discontinued Medications Azithromycin (Zithromax) 250 mg PO DAILY [facility] Last Admin: 11/19/16 08:36 Dose: 250 mg Hydrocortisone Sodium Succinate (Solu-Cortef) 100 mg IVPUSH ONETIME ONE Stop: 11/20/16 09:14 Last Admin: 11/20/16 09:44 Dose: 100 mg Hydrocortisone Sodium Succinate (Solu-Cortef) 50 mg IVPUSH Q6H ARNIE Stop: 11/21/16 03:01 Last Admin: 11/21/16 02:33 Dose: 50 mg Sodium Chloride (Normal Saline) 500 mls @ 999 mls/hr IV .BOLUS ONE Stop: 11/17/16 20:16 Last Admin: 11/17/16 19:51 Dose: 999 mls/hr Sodium Chloride (Normal Saline) 1,000 mls @ 750 mls/hr IV ASDIRECTED [facility] Last Admin: 11/18/16 03:02 Dose: 250 mls/hr Magnesium Sulfate 2 gm/ Premix 50 mls @ 25 mls/hr IV ONETIME ONE Stop: 11/19/16 11:23 Last Admin: 11/19/16 09:57 Dose: 25 mls/hr Sodium Chloride (Sodium Chloride 3%) 500 mls @ 10 mls/hr IV ONETIME ARNIE Stop: 11/20/16 12:15 Last Admin: 11/20/16 10:10 Dose: 10 mls/hr Loratadine (Claritin) 5 mg PO BID [facility] Loratadine (Claritin) 10 mg PO ONETIME ONE Stop: 11/18/16 16:13 Last Admin: 11/18/16 16:22 Dose: 10 mg Magnesium Oxide (Magnesium Oxide) 400 mg PO ONETIME ONE Stop: 11/22/16 08:26 Last Admin: 11/22/16 08:59 Dose: 400 mg Oral Electrolytes (Thermotabs) 1 each PO BID [facility] Last Admin: 11/21/16 21:07 Dose: 1 each Alendronate 70mg Tab 0 each PO Irvin@0500 [facility] Potassium Chloride (Potassium Chloride) 40 meq PO ONETIME ONE Stop: 11/22/16 08:26 Last Admin: 11/22/16 08:59 Dose: 40 meq Saccharomyces Boulardii (Florastor) 250 mg PO DAILY [facility] Last Admin: 11/19/16 08:34 Dose: 250 mg Fluticasone/Salmeterol (Advair Diskus 500-50) 2 puff INH BEDTIME [facility] Last Admin: 11/18/16 21:00 Dose: 2 puff Theophylline (Theophylline Anhydrous) 400 mg PO DAILY [facility] Last Admin: 11/19/16 09:18 Dose: Not Given - Exam Quality Assessment: Reports: DVT prophylaxis General: Reports: alert, oriented, cooperative, no acute distress HEENT: Reports: Pupils equal, Pupils reactive, EOMI, Mucous membr. moist/pink Neck: Reports: supple Lungs: Reports: Clear to auscultation, Normal respiratory effort Cardiovascular: Reports: Regular Rate, Regular Rhythm Abdomen: Reports: bowel sounds present, soft, no tenderness, no distension (Male) Exam: Deferred Rectal (Males) Exam: Deferred Extremities: Reports: no edema, no calf tenderness Neurological: Reports: no new focal deficit Psy/Mental Status: Reports: alert, normal affect, normal mood, other (very pleasant, talkative today) *Q Meaningful Use (DIS) - VTE *Q VTE Criteria *Q: - Stroke *Q Stroke Criteria *Q: - AMI *Q AMI Criteria *Q: <Dolores Chaudhry - Last Filed: 12/04/16 10:49> Discharge Summary - Hospital Course Free Text/Narrative:: AI on therapy, follow up as scheduled with ENDO. - Discharge Diagnosis/Problem(s) (1) Dehydration SNOMED Code(s): 03993630 ICD Code: E86.0 - DEHYDRATION Status: Acute (2) Hypo-osmolality and hyponatremia SNOMED Code(s): 363177035 ICD Code: E87.1 - HYPO-OSMOLALITY AND HYPONATREMIA Status: Resolved Priority: High (3) Bronchitis SNOMED Code(s): 10838010 ICD Code: J40 - BRONCHITIS, NOT SPECIFIED ACUTE OR CHRONIC Status: Acute - Patient Data Vitals - Most Recent: Last Vital Signs Temp 37.0 C 11/22/16 07:35 Pulse 76 11/22/16 07:35 Resp 14 11/22/16 07:35 BP 111/71 11/22/16 07:35 Pulse Ox 96 11/22/16 08:41 Med Orders - Current: Current Medications Discontinued Medications Acetaminophen (Tylenol) 650 mg PO Q6H PRN PRN Reason: Pain Last Admin: 11/20/16 12:26 Dose: 650 mg Amoxicillin (Amoxil) 1,000 mg PO TID [facility] Last Admin: 11/22/16 08:59 Dose: 1,000 mg Azithromycin (Zithromax) 250 mg PO DAILY [facility] Last Admin: 11/19/16 08:36 Dose: 250 mg Cholecalciferol (Vitamin D3) 2,000 units PO DAILY [facility] Last Admin: 11/22/16 08:59 Dose: 2,000 units Dronabinol (Marinol) 2.5 mg PO TIDMEALS [facility] Last Admin: 11/22/16 06:11 Dose: Not Given Enoxaparin Sodium (Lovenox) 40 mg SUBCUT DAILY [facility] Last Admin: 11/22/16 09:00 Dose: 40 mg Guaifenesin (Mucinex) 1,200 mg PO BID [facility] Last Admin: 11/22/16 08:59 Dose: 1,200 mg Hydrocortisone Sodium Succinate (Solu-Cortef) 100 mg IVPUSH ONETIME ONE Stop: 11/20/16 09:14 Last Admin: 11/20/16 09:44 Dose: 100 mg Hydrocortisone Sodium Succinate (Solu-Cortef) 50 mg IVPUSH Q6H ARNIE Stop: 11/21/16 03:01 Last Admin: 11/21/16 02:33 Dose: 50 mg Hydrocortisone Sodium Succinate (Solu-Cortef) 50 mg IV Q12H [facility] Last Admin: 11/22/16 04:13 Dose: 50 mg Sodium Chloride (Normal Saline) 500 mls @ 999 mls/hr IV .BOLUS ONE Stop: 11/17/16 20:16 Last Admin: 11/17/16 19:51 Dose: 999 mls/hr Sodium Chloride (Normal Saline) 1,000 mls @ 750 mls/hr IV ASDIRECTED [facility] Last Admin: 11/18/16 03:02 Dose: 250 mls/hr Sodium Chloride (Normal Saline) 1,000 mls @ 125 mls/hr IV ASDIRECTED [facility] Last Admin: 11/21/16 17:24 Dose: 125 mls/hr Magnesium Sulfate 2 gm/ Premix 50 mls @ 25 mls/hr IV ONETIME ONE Stop: 11/19/16 11:23 Last Admin: 11/19/16 09:57 Dose: 25 mls/hr Sodium Chloride (Sodium Chloride 3%) 500 mls @ 10 mls/hr IV ONETIME ARNIE Stop: 11/20/16 12:15 Last Admin: 11/20/16 10:10 Dose: 10 mls/hr Lansoprazole (Prevacid Solutab) 30 mg PO BID [facility] Last Admin: 11/22/16 08:59 Dose: 30 mg Loperamide HCl (Imodium) 2 mg PO Q4H PRN PRN Reason: Diarrhea Loratadine (Claritin) 5 mg PO BID [facility] Loratadine (Claritin) 10 mg PO ONETIME ONE Stop: 11/18/16 16:13 Last Admin: 11/18/16 16:22 Dose: 10 mg Loratadine (Claritin) 5 mg PO BID [facility] Last Admin: 11/22/16 09:00 Dose: 5 mg Magnesium Oxide (Magnesium Oxide) 400 mg PO ONETIME ONE Stop: 11/22/16 08:26 Last Admin: 11/22/16 08:59 Dose: 400 mg Oral Electrolytes (Thermotabs) 1 each PO BID [facility] Last Admin: 11/21/16 21:07 Dose: 1 each Alendronate 70mg Tab 0 each PO Irvin@0500 [facility] Patient Own Medication (Ptom) 0 each INH DAILY [facility] Last Admin: 11/22/16 08:41 Dose: 1 each Advair 500/50 Diskus 0 each INH BEDTIME [facility] Last Admin: 11/22/16 07:45 Dose: Not Given C-Carly/Stephenie/Bacl/Bupi/Clon Coumpounded A[place]se 0 each TOP TID [facility] Last Admin: 11/22/16 10:29 Dose: Not Given Potassium Chloride (Potassium Chloride) 40 meq PO ONETIME ONE Stop: 11/22/16 08:26 Last Admin: 11/22/16 08:59 Dose: 40 meq Rosuvastatin Calcium (Crestor) 5 mg PO DAILY [facility] Last Admin: 11/22/16 08:59 Dose: 5 mg Saccharomyces Boulardii (Florastor) 250 mg PO DAILY [facility] Last Admin: 11/19/16 08:34 Dose: 250 mg Saccharomyces Boulardii (Florastor) 500 mg PO DAILY [facility] Last Admin: 11/22/16 08:58 Dose: 500 mg Fluticasone/Salmeterol (Advair Diskus 500-50) 2 puff INH BEDTIME [facility] Last Admin: 11/18/16 21:00 Dose: 2 puff Theophylline (Theophylline Anhydrous) 400 mg PO DAILY [facility] Last Admin: 11/19/16 09:18 Dose: Not Given Theophylline (Theophylline Anhydrous) 200 mg PO BID [facility] Last Admin: 11/22/16 09:00 Dose: 200 mg *Q Meaningful Use (DIS) - VTE *Q VTE Criteria *Q: - Stroke *Q Stroke Criteria *Q: - AMI *Q AMI Criteria *Q:
== END 2016-11-22 13:24 | disposition home or self-care (01) | DRG 644 ==
LOC: JD.ED 18:57 → JD.MS 23:38 → UNDOADMIN 23:38 → JD.MS 11-18 21:06 → UNDODISIN 11-22 13:24
PROVIDERS: ADMIT Internal Medicine Cardiovascular Disease; ATTEND Internal Medicine Cardiovascular Disease
DX: E27.1 Primary adrenocortical insufficiency (principal); E87.1 Hypo-osmolality and hyponatremia; A04.8 Other specified bacterial intestinal infections; E86.0 Dehydration; D64.9 Anemia, unspecified; J44.9 Chronic obstructive pulmonary disease, unspecified; G47.33 Obstructive sleep apnea (adult) (pediatric); N40.0 Benign prostatic hyperplasia without lower urinary tract symptoms; M19.90 Unspecified osteoarthritis, unspecified site; E78.00 Pure hypercholesterolemia, unspecified; I25.10 Atherosclerotic heart disease of native coronary artery without angina pectoris; I73.9 Peripheral vascular disease, unspecified; J40 Bronchitis, not specified as acute or chronic; R63.0 Anorexia
CPT/HCPCS: 36415; 80053; 83930; 85025; 96360; 99285; J7040; 80048; 80198; 81001; 82024; 82306; 82533; 83735; 83935; 84295; 84300; 84443; 85027; 87046; 87338; 87425; 87493; 89055; 94640; 94760; 94761; 99284; A9270-GY; J1650; J1720; J3475; Q0167

== ENCOUNTER 2016-12-14 10:02 | Emergency (ER) | payer MEDICARE, OTHER ==
--- NOTE | 2016-12-14 11:16 | EDM.PDOC ---
[id number] 4d FELL MULTIPLE INJURIES Time Seen by Provider: 12/14/16 10:11 Source of Information: Reports: Patient History Limitations: Reports: No Limitations - History of Present Illness INITIAL COMMENTS - FREE TEXT/NARRATIVE: The patient is a 76-year-old male who comes in for evaluation after a fall. The patient was at a . He was in the bathroom and slipped on a slippery floor. He landed on his left side. He has multiple wounds. The patient has been chronically on steroids for many years for severe asthma and states that his skin is very thin and tears easily. He did not hit his head or pass out. Denies neck or back pain. He does have some left-sided chest pain, states it feels like a broken rib in the left lower lateral chest area. He also complains of wounds to the shoulder, forearm, and leg on the left-hand side. Had some bleeding at the scene and that is better now. Denies recent illness. No shortness of breath. No abdominal pain. He's been able to ambulate since the fall without pain in his legs. Left Chest Pain Score (Numeric/FACES): 5 - Related Data Allergies Allergy/AdvReac Type Severity Reaction Status Date / Time pollen extracts Allergy Itching Verified 12/14/16 10:06 Home Meds: Home Meds Alendronate [Fosamax] 70 mg PO HE 06/06/16 [History] Cholecalciferol (Vitamin D3) [Vitamin D3] 2,000 unit PO DAILY 06/06/16 [History] Fluticasone/Salmeterol [Advair 500-50 Diskus] 2 puff IH BEDTIME 06/06/16 [ History] Glucosamine/Chondro He A [Cosamin DS] 2 tab PO DAILY 06/06/16 [History] Multivitamin [Multivitamins] 1 each PO DAILY 06/06/16 [History] Rosuvastatin [Crestor] 5 mg PO DAILY 06/06/16 [History] Theophylline [Carlito-24] 400 mg PO DAILY 06/06/16 [History] Acetylcysteine [Nac] 600 mg PO DAILY 07/21/16 [History] Albuterol Sulfate [Ventolin Hfa] 18 gm IH DAILY 07/21/16 [History] Glutamine [l-Glutamine] 2 tsp PO DAILY 07/21/16 [History] Magnesium 250 mg PO DAILY 07/21/16 [History] Ultra Meal Advance Protein Supplement 2 dose PO BID 07/21/16 [History] Protein Supplement [Procel] 1 pkt PO DAILY 11/07/16 [History] L.acidoph,Paracasei, B.lactis [Probiotic] 1 each PO DAILY 11/11/16 [History] Dronabinol [Marinol] 2.5 mg PO TIDMEALS #60 cap 11/14/16 [Rx] Loratadine [Claritin] 5 mg PO BID #60 tablet 11/14/16 [Rx] guaiFENesin [Mucinex] 1,200 mg PO BID #60 tab.er 11/14/16 [Rx] Amoxicillin [Amoxil] 1,000 mg PO TID #39 cap 11/22/16 [Rx] Omeprazole 20 mg PO BIDAC #28 cap.cr 11/22/16 [Rx] Patient's Own Medication [Ptom] 0 each TOP TID each 11/22/16 [Rx] Prednisone [IJD: Prednisone] 10 mg PO DAILY #70 tab 11/22/16 [Rx] Bacitracin [Bacitracin Oint] 1 applic TOP DAILY #1 tube 12/14/16 [Rx] Past Medical History HEENT History: Reports: Impaired Vision Other HEENT History: wears reading glasses Cardiovascular History: Reports: High Cholesterol, PVD, SOB on Exertion Other Cardiovascular History: ASCVD Respiratory History: Reports: Asthma, COPD, Sleep Apnea Other Respiratory History: pt does not wear his CPAP as prescibed Gastrointestinal History: Reports: None Genitourinary History: Reports: BPH Musculoskeletal History: Reports: Arthritis, Back Pain, Chronic, Osteoarthritis Neurological History: Reports: Head Trauma, Other (See Below) Other Neuro History: fell in May 2016 and hit head Psychiatric History: Reports: Addiction, Other (See Below) Other Psychiatric History: nighty ETOH drinks 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 Oncologic (Cancer) History: Reports: Other (See Below) Other Oncologic History: melamona spots removed from head Dermatologic History: Reports: Other (See Below) Other Dermatologic History: very thin skin secondary to theophylline - Infectious Disease History Infectious Disease History: Reports: Chicken Pox, Measles - Past Surgical History HEENT Surgical History: Reports: Tonsillectomy, Other (See Below) Other HEENT Surgeries/Procedures: nose surgery Cardiovascular Surgical History: Reports: Vascular Surgery Respiratory Surgical History: Reports: None GI Surgical History: Reports: Colonoscopy Male Surgical History: Reports: None Endocrine Surgical History: Reports: None Neurological Surgical History: Reports: None Musculoskeletal Surgical History: Reports: Other (See Below) Other Musculoskeletal Surgeries/Procedures:: recent surgery/removal of part of great toe on right foot; second and third toe amputated years ago; fractured ribs in May 2016 from falling; neck pain Oncologic Surgical History: Reports: None Dermatological Surgical History: Reports: None Social & Family History - Family History Family Medical History: Noncontributory HEENT: Reports: None Cardiac: Reports: None Respiratory: Reports: None : Reports: None OBGYN: Reports: None Musculoskeletal: Reports: None Neurological: Reports: None Psychiatric: Reports: None - Tobacco Use Smoking Status *Q: Former Smoker Years of Tobacco use: 5 Packs/Tins Daily: 0.5 Used Tobacco, but Quit: Yes Month Tobacco Last Used: 40 YEARS AGO Second Hand Smoke Exposure: No - Caffeine Use Caffeine Use: Reports: Coffee Other Caffeine Use: half-caf coffee - Alcohol Use Days Per Week of Alcohol Use: 1 Number of Drinks Per Day: 7 Total Drinks Per Week: 7 - Recreational Drug Use Recreational Drug Use: No - Living Situation & Occupation Living situation: Reports: Occupation: Retired Review of Systems - Review of Systems Review Of Systems: See Below Constitutional: Reports: No Symptoms Respiratory: Denies: Shortness of Breath Cardiovascular: Reports: Chest Pain GI/Abdominal: Denies: Abdominal Pain Musculoskeletal: Denies: Neck Pain Skin: Reports: Wound Neurological: Reports: No Symptoms. Denies: Headache ED EXAM, GENERAL - Physical Exam Exam: See Below Exam Limited By: No Limitations General Appearance: Alert, WD/WN, No Apparent Distress Eye Exam: Bilateral Eye: EOMI, PERRL Ears: Normal External Exam Nose: Normal Inspection, Normal Mucosa, No Blood Throat/Mouth: Normal Inspection, Normal Lips, Normal Teeth, Normal Gums, Normal Oropharynx, Normal Voice, No Airway Compromise Head: Atraumatic, Normocephalic Neck: Normal Inspection, Supple, Non-Tender, Full Range of Motion Respiratory/Chest: No Respiratory Distress, Lungs Clear, Normal Breath Sounds, No Accessory Muscle Use, Other (left lateral/posterior chest wall TTP with mild area of swelling at approx rib #9, skin intact, no crepitus) Cardiovascular: Normal Peripheral Pulses, Regular Rate, Rhythm, No Edema GI/Abdominal: Soft, Non-Tender, No Distention. No: Rebound Back Exam: Normal Inspection, Full Range of Motion. No: Vertebral Tenderness Extremities: Other (multiple ecchymosis of all extremities, most severe on L forearm which is almost completely ecchymosed. No bony tenderness throughout. Skin tears left shoulder, left upper arm, left forearm, and left leg just below the knee, no bony tenderness throughout) Psychiatric: Normal Affect, Normal Mood Skin Exam: Warm, Dry, Intact, Normal Color, No Rash Course - Vital Signs Last Recorded V/S: Last Vital Signs Temp 36.2 C 12/14/16 10:06 Pulse 68 12/14/16 10:06 Resp 18 12/14/16 10:06 BP 152/82 H 12/14/16 10:06 Pulse Ox 96 12/14/16 10:06 - Orders/Labs/Meds Orders: Active Orders 24 hr Category Date Time Status Chest 1V Frontal [CR] Stat Exams 12/14/16 10:57 Taken Meds: Medications Discontinued Medications Generic Name Dose Route Start Last Admin Trade Name Freq PRN Reason Stop Dose Admin Acetaminophen 650 mg 12/14/16 11:36 12/14/16 11:40 Tylenol PO 12/14/16 11:37 650 mg NOW ONE Administration - Re-Assessments/Exams Free Text/Narrative Re-Assessment/Exam: 12/14/16 11:19 Skin tears of left shoulder, left forearm, and left leg repaired with dermabond and steri-strips. Left upper arm wound left open - too large defect, thin skin , and tension to close even with steri-strips. Counselled patient extensively re: wound care and need for follow up and return precautions for signs of infection. He happens to have a clinic appointment later today so can discuss all of the above. 12/14/16 11:41 CXR shows a rib fracture of R rib #10, mildly displaced. Multiple old appearing rib fractures. No pneumothorax. Departure - Departure Time of Disposition: 12:47 Disposition: Home, Self-Care 01 Clinical Impression: Contusion of chest wall Qualifiers: Encounter type: initial encounter Laterality: left Qualified Code(s): S20.212A - Contusion of left front wall of thorax, initial encounter Skin tear of forearm without complication Qualifiers: Encounter type: initial encounter Laterality: left Qualified Code(s): S51.812A - Laceration without foreign body of left forearm, initial encounter Skin tear of elbow without complication Qualifiers: Encounter type: initial encounter Laterality: left Qualified Code(s): S51.012A - Laceration without foreign body of left elbow, initial encounter Skin tear of upper arm without complication Qualifiers: Encounter type: initial encounter Laterality: left Qualified Code(s): S41.112A - Laceration without foreign body of left upper arm, initial encounter Skin tear of left lower leg without complication Qualifiers: Encounter type: initial encounter Qualified Code(s): S81.812A - Laceration without foreign body, left lower leg, initial encounter - Discharge Information Prescriptions: Bacitracin [Bacitracin Oint] 1 applic TOP DAILY #1 tube Instructions: Contusion, Laceration Care, Adult, [id number] Referrals: Kareem Cowan MD [Primary Care Provider] - Forms: ED Department Discharge Additional Instructions: 1. Keep wounds clean and dry 2. Remove bandages in 24-48 hours. Wash open left arm wound daily with water, ok to use a little bit of gentle soap. After washing, dry the wound gently. Cover with antibiotic ointment and place a dressing. 3. Follow up with your clinic provider as needed for wound checks. 4. Follow up with clinic or return to the Emergency Department if you have any signs of infection, including: - increased pain of wounds - redness of skin around the wounds - pus discharge under the wound - fever - any other concerning symptoms 5. Take tylenol and/or aspirin as needed for rib pain. Return to the Emergency Department for a recheck if you develop worsening chest pain or difficulty breathing or new cough. - My Orders Last 24 Hours: My Active Orders 12/14/16 10:57 Chest 1V Frontal [CR] Stat - Assessment/Plan Last 24 Hours: My Active Orders 12/14/16 10:57 Chest 1V Frontal [CR] Stat
[2016-12-14 11:21] VITALS: BP 152/82
[2016-12-14] MEDS ORDERED: Acetaminophen 325 MG Tab PO ONE (11:36)
--- NOTE | 2016-12-14 13:35 | CR ---
Chest: Portable view of the chest was obtained. Comparison: Previous chest x-ray of 11/13/16. Multiple bilateral rib fractures are seen showing mild callus. Findings are fairly stable from prior exam. Lungs are clear with no acute appearing infiltrates. Heart size is normal. Mild tortuosity of the thoracic aorta is noted. Probable chronic rotator cuff tear is noted within the left shoulder. Impression: 1. Findings as noted above. Nothing acute is definitely appreciated. Nondisplaced rib fracture could easily be missed. Diagnostic code #2
== END 2016-12-14 12:35 | disposition home or self-care (01) ==
LOC: JD.ED 10:02
DX: S81.812A Laceration without foreign body, left lower leg, initial encounter (principal); S51.812A Laceration without foreign body of left forearm, initial encounter; S51.012A Laceration without foreign body of left elbow, initial encounter; S41.112A Laceration without foreign body of left upper arm, initial encounter; S41.012A Laceration without foreign body of left shoulder, initial encounter; S20.212A Contusion of left front wall of thorax, initial encounter; W18.30XA Fall on same level, unspecified, initial encounter; Z91.048 Other nonmedicinal substance allergy status; Z79.899 Other long term (current) drug therapy; H54.7 Unspecified visual loss; E78.00 Pure hypercholesterolemia, unspecified; J45.909 Unspecified asthma, uncomplicated; M19.90 Unspecified osteoarthritis, unspecified site; Z98.890 Other specified postprocedural states; Z87.891 Personal history of nicotine dependence
CPT/HCPCS: 12005; 71010; 99284; A9270; 99283

== ENCOUNTER 2017-01-04 16:38 | Emergency (ER) | payer MEDICARE, OTHER ==
[2017-01-04 17:08] VITALS: BP 121/76
[2017-01-04] MEDS ORDERED: Sodium Chloride 0.9% 10 ML Syringe FLUSH PRN (17:34)
--- NOTE | 2017-01-04 18:26 | EDM.PDOC ---
ED HPI GENERAL MEDICAL PROBLEM - General Chief Complaint: Lower Extremity Injury/Pain Stated Complaint: SWOLLEN LEGS- SENT BY ABISAI Time Seen by Provider: 01/04/17 17:09 Source of Information: Reports: Patient, RN Notes Reviewed - History of Present Illness INITIAL COMMENTS - FREE TEXT/NARRATIVE: 76 year old male comes in with swelling of RLE, he called or "tried to go to the clinic", was referred here to the ED. Pt and his state the swelling of his R leg has worsened over the past week or so. He also has had some swelling of the L leg but not as much. 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 He states he has has some type of bypass procedure for the RLE done at [facility]. Chronic erythema R great toe and now what sounds like increasing erythema R foot this past week. He states he was started on an oral antibiotic 3 days ago. No fever. No major discomfort, no drainage. No chest pain or difficulty breathing. He has had recent sinus abraham and a dry nonprod cough. - Related Data Allergies Allergy/AdvReac Type Severity Reaction Status Date / Time pollen extracts Allergy Itching Verified 12/14/16 10:06 Home Meds: Home Meds Alendronate [Fosamax] 70 mg PO HE 06/06/16 [History] Cholecalciferol (Vitamin D3) [Vitamin D3] 2,000 unit PO DAILY 06/06/16 [History] Fluticasone/Salmeterol [Advair 500-50 Diskus] 2 puff IH BEDTIME 06/06/16 [ History] Glucosamine/Chondro He A [Cosamin DS] 2 tab PO DAILY 06/06/16 [History] Multivitamin [Multivitamins] 1 each PO DAILY 06/06/16 [History] Rosuvastatin [Crestor] 5 mg PO DAILY 06/06/16 [History] Theophylline [Carlito-24] 400 mg PO DAILY 06/06/16 [History] Acetylcysteine [Nac] 600 mg PO DAILY 07/21/16 [History] Albuterol Sulfate [Ventolin Hfa] 18 gm IH DAILY 07/21/16 [History] Glutamine [l-Glutamine] 2 tsp PO DAILY 07/21/16 [History] Magnesium 250 mg PO DAILY 07/21/16 [History] Ultra Meal Advance Protein Supplement 2 dose PO BID 07/21/16 [History] Protein Supplement [Procel] 1 pkt PO DAILY 11/07/16 [History] L.acidoph,Paracasei, B.lactis [Probiotic] 1 each PO DAILY 11/11/16 [History] Dronabinol [Marinol] 2.5 mg PO TIDMEALS #60 cap 11/14/16 [Rx] Loratadine [Claritin] 5 mg PO BID #60 tablet 11/14/16 [Rx] guaiFENesin [Mucinex] 1,200 mg PO BID #60 tab.er 11/14/16 [Rx] Amoxicillin [Amoxil] 1,000 mg PO TID #39 cap 11/22/16 [Rx] Omeprazole 20 mg PO BIDAC #28 cap.cr 11/22/16 [Rx] Patient's Own Medication [Ptom] 0 each TOP TID each 11/22/16 [Rx] Prednisone [IJD: Prednisone] 10 mg PO DAILY #70 tab 11/22/16 [Rx] Bacitracin [Bacitracin Oint] 1 applic TOP DAILY #1 tube 12/14/16 [Rx] Past Medical History HEENT History: Reports: Impaired Vision Other HEENT History: wears reading glasses Cardiovascular History: Reports: High Cholesterol, PVD, SOB on Exertion Other Cardiovascular History: ASCVD Respiratory History: Reports: Asthma, COPD, Sleep Apnea Other Respiratory History: pt does not wear his CPAP as prescibed Gastrointestinal History: Reports: None Genitourinary History: Reports: BPH Musculoskeletal History: Reports: Arthritis, Back Pain, Chronic, Osteoarthritis Neurological History: Reports: Head Trauma, Other (See Below) Other Neuro History: fell in May 2016 and hit head Psychiatric History: Reports: Addiction, Other (See Below) Other Psychiatric History: nighty ETOH drinks Endocrine/Metabolic History: Reports: [place]'s Disease Immunologic History: Reports: Immunosuppression, Other (See Below) Other Immunologic History: from Carlito-dur. Oncologic (Cancer) History: Reports: Other (See Below) Other Oncologic History: melamona spots removed from head Dermatologic History: Reports: Other (See Below) Other Dermatologic History: very thin skin secondary to theophylline - Infectious Disease History Infectious Disease History: Reports: Chicken Pox, Measles - Past Surgical History HEENT Surgical History: Reports: Tonsillectomy, Other (See Below) Other HEENT Surgeries/Procedures: nose surgery Cardiovascular Surgical History: Reports: Vascular Surgery Respiratory Surgical History: Reports: None GI Surgical History: Reports: Colonoscopy Male Surgical History: Reports: None Endocrine Surgical History: Reports: None Neurological Surgical History: Reports: None Musculoskeletal Surgical History: Reports: Other (See Below) Other Musculoskeletal Surgeries/Procedures:: recent surgery/removal of part of great toe on right foot; second and third toe amputated years ago; fractured ribs in May 2016 from falling; neck pain Oncologic Surgical History: Reports: None Dermatological Surgical History: Reports: None Social & Family History - Family History Family Medical History: Noncontributory HEENT: Reports: None Cardiac: Reports: None Respiratory: Reports: None : Reports: None OBGYN: Reports: None Musculoskeletal: Reports: None Neurological: Reports: None Psychiatric: Reports: None - Tobacco Use Smoking Status *Q: Never Smoker Years of Tobacco use: 5 Packs/Tins Daily: 0.5 Used Tobacco, but Quit: No Month Tobacco Last Used: quit in the 70s Second Hand Smoke Exposure: No - Caffeine Use Caffeine Use: Reports: Coffee Other Caffeine Use: half-caf coffee - Alcohol Use Days Per Week of Alcohol Use: 1 Number of Drinks Per Day: 7 Total Drinks Per Week: 7 - Recreational Drug Use Recreational Drug Use: No - Living Situation & Occupation Living situation: Reports: Occupation: Retired Review of Systems - Review of Systems Review Of Systems: See Below Constitutional: Denies: Chills, Fever Mouth/Throat: Reports: No Symptoms Respiratory: Reports: Shortness of Breath (chronically with exertion), Cough ( chronic). Denies: Wheezing, Sputum Cardiovascular: Denies: Chest Pain GI/Abdominal: Denies: Abdominal Pain Musculoskeletal: Denies: Shoulder Pain, Arm Pain, Foot Pain (pt states he currently does not have much discomfort R or L feet), Joint Pain Skin: Reports: Erythema (R foot), Other (discoloration of stasis dermatitis both legs chronically) Neurological: Denies: Weakness (no focal weakness) ED EXAM, GENERAL - Physical Exam Exam: See Below General Appearance: Alert, No Apparent Distress Eye Exam: Bilateral Eye: PERRL Throat/Mouth: Normal Inspection, Normal Oropharynx Head: Atraumatic. No: Facial Swelling Neck: Supple Respiratory/Chest: No Respiratory Distress, Lungs Clear, Decreased Breath Sounds. No: Rales, Rhonchi, Wheezing Cardiovascular: Regular Rate, Rhythm GI/Abdominal: Soft, Non-Tender Back Exam: No: CVA Tenderness (L), CVA Tenderness (R) Extremities: Pedal Edema (R lower extrem, ), Increased Warmth (mildly increased warmth R great toe, distal toe is crusted), Redness (R foot and R great toe) Course - Vital Signs Last Recorded V/S: Last Vital Signs Temp 98.7 F 01/04/17 17:05 Pulse 66 01/04/17 17:05 Resp 18 01/04/17 17:05 BP 121/76 01/04/17 17:05 Pulse Ox 96 01/04/17 17:05 - Orders/Labs/Meds Orders: Active Orders 24 hr Category Date Time Status Peripheral IV Care [RC] . DIRECTED Care 01/04/17 17:34 Active Chest 1V Frontal [CR] Stat Exams 01/04/17 19:51 Ordered Toes Great Toe Rt T5 [CR] Stat Exams 01/04/17 18:14 Taken VL Duplex Lwr Ext Veins Ltd Rt [US] Stat Exams 01/04/17 17:35 Taken Sodium Chloride 0.9% [Saline Flush] Med 01/04/17 17:34 Active 10 ml FLUSH ASDIRECTED PRN Peripheral IV Insertion Adult [OM.PC] Stat Oth 01/04/17 17:34 Ordered Medication Orders Sodium Chloride (Saline Flush) 10 ml FLUSH ASDIRECTED PRN PRN Reason: Keep Vein Open Last Admin: 01/04/17 17:57 Dose: 10 ml Labs: Laboratory Tests 01/04/17 01/04/17 01/04/17 Range/Units 17:33 17:34 17:50 WBC 9.37 H (4.23-9.07) K/mm3 RBC 4.50 L (4.63-6.08) M/mm3 Hgb 12.9 L (13.7-17.5) gm/L Hct 39.4 L (40.1-51.0) % MCV 87.6 (79.0-92.2) fl MCH 28.7 (25.7-32.2) pg MCHC 32.7 (32.2-35.5) g/dl RDW Std Deviation 44.2 H (35.1-43.9) fL Plt Count 297 (163-337) K/mm3 MPV 9.6 (9.4-12.3) fl Neut % (Auto) 53.9 (34.0-67.9) % Lymph % (Auto) 24.4 (21.8-53.1) % Delta % (Auto) 9.8 (5.3-12.2) % Eos % (Auto) 11.0 H (0.8-7.0) Baso % (Auto) 0.5 (0.1-1.2) % Neut # (Auto) 5.04 (1.78-5.38) K/mm3 Lymph # (Auto) 2.29 (1.32-3.57) K/mm3 Delta # (Auto) 0.92 H (0.30-0.82) K/mm3 Eos # (Auto) 1.03 H (0.04-0.54) K/mm3 Baso # (Auto) 0.05 (0.01-0.08) K/mm3 Sodium 141 (136-145) mEq/L Potassium 3.6 (3.5-5.1) mEq/L Chloride 104 (98-107) mEq/L Carbon Dioxide 26 (21-32) mEq/L Anion Gap 14.6 (5-15) BUN 17 (7-18) mg/dL Creatinine 0.9 (0.7-1.3) mg/dL Est Cr Clr Drug Dosing 66.30 mL/min Estimated GFR (MDRD) > 60 (>60) mL/min BUN/Creatinine Ratio 18.9 H (14-18) Glucose 98 (83-115) mg/dL Calcium 8.7 (8.5-10.1) mg/dL Total Bilirubin 0.5 (0.2-1.0) mg/dL AST 16 (15-37) U/L ALT 15 L (16-63) U/L Alkaline Phosphatase 163 H (46-116) U/L C-Reactive Protein 0.7 (<1.0) mg/dL B-Natriuretic Peptide 27 (0-100) pg/mL Total Protein 6.2 L (6.4-8.2) g/dl Albumin 3.2 L (3.4-5.0) g/dl Globulin 3.0 gm/dL Albumin/Globulin Ratio 1.1 (1-2) Meds: Medications Generic Name Dose Route Start Last Admin Trade Name Danny PRN Reason Stop Dose Admin Sodium Chloride 10 ml 01/04/17 17:34 01/04/17 17:57 Saline Flush FLUSH 10 ml ASDIRECTED PRN Administration Keep Vein Open - Re-Assessments/Exams Free Text/Narrative Re-Assessment/Exam: 01/04/17 19:59 Labs are as documented. WBC is good, no left shift, CRP 0.7. I have concern for potential osteomyelitis R great toe but with normal CRP less likely . X ray of toe looks good. US of RLE does not show DVT, did show a popliteal cyst. He is not in CHF. CXR shows Departure - Departure Time of Disposition: 20:01 Disposition: Home, Self-Care 01 Condition: Fair Clinical Impression: Cellulitis Qualifiers: Site of cellulitis: extremity Site of cellulitis of extremity: lower extremity Laterality: right Qualified Code(s): L03.115 - Cellulitis of right lower limb Popliteal cyst Qualifiers: Laterality: right Qualified Code(s): M71.21 - Synovial cyst of popliteal space [Ma], right knee - Discharge Information Forms: ED Department Discharge Additional Instructions: rest and elevate leg and foot as much as possible, keep feet and legs elevated when not walking. continue cipro antibiotic recently prescribed and other medication as previously prescribed, try see Dr Sanchez early next week, call in AM for appt. return to ED if sx worsening in any way. - My Orders Last 24 Hours: My Active Orders 01/04/17 17:34 Peripheral IV Care [RC] . DIRECTED Sodium Chloride 0.9% [Saline Flush] 10 ml FLUSH ASDIRECTED PRN Peripheral IV Insertion Adult [OM.PC] Stat 01/04/17 17:35 VL Duplex Lwr Ext Veins Ltd Rt [US] Stat 01/04/17 18:14 Toes Great Toe Rt T5 [CR] Stat 01/04/17 19:51 Chest 1V Frontal [CR] Stat - Assessment/Plan Last 24 Hours: My Active Orders 01/04/17 17:34 Peripheral IV Care [RC] . DIRECTED Sodium Chloride 0.9% [Saline Flush] 10 ml FLUSH ASDIRECTED PRN Peripheral IV Insertion Adult [OM.PC] Stat 01/04/17 17:35 VL Duplex Lwr Ext Veins Ltd Rt [US] Stat 01/04/17 18:14 Toes Great Toe Rt T5 [CR] Stat 01/04/17 19:51 Chest 1V Frontal [CR] Stat
--- NOTE | 2017-01-05 07:17 | CR ---
Right first toe: Four views of the right first toe were obtained. Prior resection of the distal aspect of the distal phalanx is seen. Soft tissue amputation is seen. Soft tissue ulceration also appears to be present within the distal first toe. There is slight cortical irregularity seen within the distal resected portion of this toe suspicious for early osteomyelitis. Joint space narrowing noted within the first MTP joint. Vascular calcification is present. No other acute bony abnormality is seen. Impression: 1. Previous amputation. 2. Minimal area of early osteomyelitis is suggested within the distal aspect of the distal phalanx of the right first toe. Diagnostic code #5
--- NOTE | 2017-01-05 07:17 | CR ---
Chest: Portable view of the chest was obtained. Comparison: Previous chest x-ray of 12/14/16. Heart size is normal. Tortuous thoracic aorta is seen. Multiple left-sided rib fractures are seen showing mild callus. Bony structures are osteopenic. Atelectasis noted within both lung bases. Lungs otherwise are clear. Previous lumbar spine surgery is noted. Impression: 1. Slight atelectasis within both lung bases. Other incidental findings. 2. Nothing acute is identified. Diagnostic code #2
--- NOTE | 2017-01-05 07:17 | US ---
Right lower extremity deep venous ultrasound: Duplex and color flow imaging was obtained of the right common femoral, proximal greater saphenous, superficial femoral, popliteal, posterior tibial and peroneal veins. Left common femoral vein was also evaluated. Normal phasic flow, augmentation and compression are seen. 5.4 cm popliteal cyst is identified on the right side. Impression: 1. Right-sided popliteal cyst. 2. No evidence of deep venous thrombosis within the right lower extremity or within the left common femoral vein. Diagnostic code #3 I agree with preliminary report issued by [facility] ([facility] report finalized on 01/04/17, 8:07 PM Central Time)
== END 2017-01-04 20:27 | disposition home or self-care (01) ==
LOC: JD.ED 16:38
DX: L03.115 Cellulitis of right lower limb (principal); M71.21 Synovial cyst of popliteal space [Baker], right knee; E78.00 Pure hypercholesterolemia, unspecified; J45.909 Unspecified asthma, uncomplicated; J44.9 Chronic obstructive pulmonary disease, unspecified; M19.90 Unspecified osteoarthritis, unspecified site; Z98.890 Other specified postprocedural states; Z89.411 Acquired absence of right great toe; Z89.421 Acquired absence of other right toe(s); Z87.891 Personal history of nicotine dependence; Z79.899 Other long term (current) drug therapy; Z91.018 Allergy to other foods
CPT/HCPCS: 36415; 71010; 73660; 80053; 83880; 85025; 86140; 93971; 99284; J7050; 99283